=== PATIENT | male | born 1940 | race Caucasian/White ===

== ENCOUNTER → 2017-06-09 07:44 | Outpatient (CLI) | payer MEDICARE, OTHER, MEDICAID, SELFPAY ==
[2017-05-23 12:20] VITALS: BP 147/87; BMI 26.4
[2017-06-09 07:55] VITALS: BP 127/67; PULSE 61; RESP 18; TEMP 36.6; O2SAT 95; BMI 26.4
[2017-06-09] MEDS: Mepolizumab 100 MG VIAL SQ (08:33)
== END ==
PROVIDERS: Family Provider Family Medicine; PCP Family Medicine; Visit Provider Internal Medicine Critical Care Medicine
DX: J45.40 Moderate persistent asthma, uncomplicated (principal)
CPT/HCPCS: 96372; J2182

== ENCOUNTER → 2017-07-07 08:30 | Outpatient (CLI) | payer MEDICARE, OTHER, MEDICAID, SELFPAY ==
[2017-07-07 08:58] VITALS: BP 149/77; PULSE 56; RESP 20; TEMP 36.6; O2SAT 97; BMI 25.9
[2017-07-07] MEDS: Mepolizumab 100 MG VIAL SQ (09:15)
== END ==
PROVIDERS: Family Provider Family Medicine; PCP Family Medicine; Visit Provider Internal Medicine Critical Care Medicine
DX: J45.40 Moderate persistent asthma, uncomplicated (principal)
CPT/HCPCS: 96372; J2182

== ENCOUNTER → 2017-08-04 08:26 | Outpatient (CLI) | payer MEDICARE, OTHER, MEDICAID, SELFPAY ==
[2017-08-04] MEDS: Mepolizumab 100 MG VIAL SQ (08:55)
[2017-08-04 08:59] VITALS: BP 133/70; PULSE 66; TEMP 36.7; O2SAT 96; BMI 25.9
[2017-08-04 09:16] LABS: Absolute Lymphocyte Count 2.42 X10^3/ul (0.83-4.51); Absolute Neutrophil Count 3.5 X10^3/uL (2.0-7.7); Basophil# 0.02 X10^3/uL; Basophil% 0.3 % (0-1); Eosinophil# 0.06 X10^3/uL; Eosinophils% 0.9 % (0-5); Hematocrit 42.9 % (40-54); Lymphocyte # 2.42 X10^3/ul (4.0); Lymphocyte % 35.4 % (19-41); Mean Corp Hgb Conc 32.6 g/gl (32-36); Mean Corpuscular Hgb 29.5 pg (27.0-32.0); Mean Corpuscular Volume 90.3 fL (80-94); Mean Platelet Vol. 10.7 fl (6.2-12.0); Monocyte# 0.82 X10^3/uL; Neutrophil % 51.3 % (47-70); Platelet Count 207 K/mm3 (150-450); RBC Distribution Width CV 14.3 % (11.6-14.6); RBC Distribution Width SD 47.7 fl (35.1-43.9); Red Blood Count 4.75 M/mm3 (4.6-6.2); White Blood Count 6.8 K/mm3 (4.4-11.0)
[2017-08-04 09:19] LABS: POSITIVE COUNT NO; POSITIVE DIFFERENTIAL NO; POSITIVE MORPHOLOGY NO
== END ==
PROVIDERS: Family Provider Family Medicine; PCP Family Medicine; Visit Provider Internal Medicine Critical Care Medicine
DX: J45.40 Moderate persistent asthma, uncomplicated (principal); G47.33 Obstructive sleep apnea (adult) (pediatric); D72.1 Eosinophilia
CPT/HCPCS: 36415; 85025; 96372; J2182

== ENCOUNTER → 2017-09-01 09:22 | Outpatient (CLI) | payer MEDICARE, OTHER, MEDICAID, SELFPAY ==
[2017-09-01 09:36] VITALS: BP 126/65; PULSE 66; RESP 16; TEMP 36.7; BMI 25.9
[2017-09-01] MEDS: Mepolizumab 100 MG VIAL SQ (09:52)
== END ==
PROVIDERS: Family Provider Family Medicine; PCP Family Medicine; Visit Provider Internal Medicine Critical Care Medicine
DX: J45.40 Moderate persistent asthma, uncomplicated (principal)
CPT/HCPCS: 96372; J2182

== ENCOUNTER → 2017-09-29 08:22 | Outpatient (CLI) | payer MEDICARE, OTHER, MEDICAID, SELFPAY ==
[2017-09-29 08:27] VITALS: BP 129/64; PULSE 59; RESP 18; TEMP 36.4; O2SAT 96; BMI 26.6
[2017-09-29] MEDS: Mepolizumab 100 MG VIAL SQ (09:14)
== END ==
PROVIDERS: Family Provider Family Medicine; PCP Family Medicine; Visit Provider Internal Medicine Critical Care Medicine
DX: J45.40 Moderate persistent asthma, uncomplicated (principal)
CPT/HCPCS: 96372; J2182

== ENCOUNTER → 2017-10-27 08:42 | Outpatient (CLI) | payer MEDICARE, OTHER, MEDICAID, SELFPAY ==
[2017-10-27 08:56] VITALS: BP 115/66; PULSE 61; RESP 18; TEMP 36.6; O2SAT 96; BMI 25.9
[2017-10-27] MEDS: Mepolizumab 100 MG VIAL SQ (09:06)
== END ==
PROVIDERS: Family Provider Family Medicine; PCP Family Medicine; Visit Provider Internal Medicine Critical Care Medicine
DX: J45.40 Moderate persistent asthma, uncomplicated (principal)
CPT/HCPCS: 96372; J2182

== ENCOUNTER → 2017-10-27 22:39 | Outpatient (CLI) | payer MEDICARE, OTHER, MEDICAID, SELFPAY | PROVIDERS: Family Provider Family Medicine; PCP Family Medicine; Visit Provider Nurse Practitioner Acute Care | DX: G47.33 Obstructive sleep apnea (adult) (pediatric) (principal); J45.40 Moderate persistent asthma, uncomplicated | CPT/HCPCS: 95811; 96372 ==

== ENCOUNTER → 2017-11-24 09:03 | Outpatient (CLI) | payer MEDICARE, OTHER, MEDICAID, SELFPAY ==
[2017-11-24 09:17] VITALS: BP 116/61; PULSE 68; RESP 16; TEMP 36.7; O2SAT 95; BMI 25.9
[2017-11-24] MEDS: Mepolizumab 100 MG VIAL SQ (09:28)
== END ==
PROVIDERS: Family Provider Family Medicine; PCP Family Medicine; Visit Provider Internal Medicine Critical Care Medicine
DX: J45.50 Severe persistent asthma, uncomplicated (principal)
CPT/HCPCS: 96372; J2182

== ENCOUNTER → 2017-12-22 08:41 | Outpatient (CLI) | payer MEDICARE, OTHER, MEDICAID, SELFPAY ==
[2017-12-22 08:48] VITALS: BP 117/57; PULSE 70; RESP 18; TEMP 36.8; O2SAT 95; BMI 25.7
[2017-12-22] MEDS: Mepolizumab 100 MG VIAL SQ (09:00)
== END ==
PROVIDERS: Family Provider Family Medicine; PCP Family Medicine; Visit Provider Internal Medicine Critical Care Medicine
DX: J45.50 Severe persistent asthma, uncomplicated (principal)
CPT/HCPCS: 96372; J2182

== ENCOUNTER → 2018-01-05 10:19 | Outpatient (CLI) | payer MEDICARE, OTHER, MEDICAID, SELFPAY ==
[2018-01-05 11:20] LABS: Hematocrit 42.7 % (40-54); Hemoglobin 14.1 g/dl (13.0-16.5); Mean Corpuscular Hgb 29.8 pg (27.0-32.0); Mean Corpuscular Volume 90.3 fL (80-94); Mean Platelet Vol. 11.1 fl (6.2-12.0); Platelet Count 212 K/mm3 (150-450); RBC Distribution Width CV 14.9 % (11.6-14.6); RBC Distribution Width SD 48.7 fl (35.1-43.9); Red Blood Count 4.73 M/mm3 (4.6-6.2); White Blood Count 7.1 K/mm3 (4.4-11.0)
[2018-01-05 11:21] LABS: Scan Indicated on CBC? Y/N NO
[2018-01-05 11:43] LABS: Hemoglobin A1c 5.5 % (4.2-6.3)
[2018-01-05 11:54] LABS: ALB/GLOB Ratio 1.1 RATIO (0.9-2.4); AST(SGOT) 17 U/L (15-37); Alanine Aminotransfer ALT/SGPT 21 U/L (16-61); Albumin, Serum 3.8 g/dL (3.2-5.0); Alkaline Phosphatase 60 U/L (45-117); Anion Gap 7 (5-15); BUN 25 mg/dL (7-18); BUN/Creat Ratio 21.9 RATIO (10-20); Calcium,Total 9.2 mg/dL (8.5-10.1); Chloride 110 mmol/L (98-107); Creatinine, Serum 1.14 mg/dL (0.70-1.30); EST Glomerular Filtration Rate 66 mL/min (>60); Est Glom Filt Rate - Afr Amer 80 mL/min (>60); Globulin 3.5 g/dL (2.2-4.2); Glucose 79 mg/dL (74-106); Protein, Total 7.3 g/dL (6.4-8.2); Sodium Level 149 mmol/L (136-145)
== END ==
PROVIDERS: Family Provider Family Medicine; PCP Family Medicine; Visit Provider Nurse Practitioner Acute Care
DX: Z86.73 Personal history of transient ischemic attack (TIA), and cerebral infarction without residual deficits (principal); Z79.899 Other long term (current) drug therapy
CPT/HCPCS: 36415; 80053; 83036; 85027

== ENCOUNTER → 2018-01-19 08:41 | Outpatient (CLI) | payer MEDICARE, OTHER, MEDICAID, SELFPAY ==
[2018-01-19 08:51] VITALS: BP 127/62; PULSE 72; RESP 18; TEMP 36.5; O2SAT 94; BMI 26.4
[2018-01-19] MEDS: Mepolizumab 100 MG VIAL SQ (09:10)
== END ==
PROVIDERS: Family Provider Family Medicine; PCP Family Medicine; Visit Provider Internal Medicine Critical Care Medicine
DX: J45.50 Severe persistent asthma, uncomplicated (principal)
CPT/HCPCS: 96372; J2182

== ENCOUNTER → 2018-06-15 07:49 | Outpatient (CLI) | payer MEDICARE, OTHER, MEDICAID, SELFPAY ==
[2018-05-11 08:58] VITALS: BMI 26.3
--- NOTE | 2018-06-16 07:34 | PFTCOMP_ITS ---
COMPLETE PULMONARY FUNCTION TEST INTERPRETATION Brief HPI: Patient is a 77 year old male, currently under the care of myself, who presents to [facility] for complete pulmonary function tests secondary to diagnosis of COPD/asthma overlap. Respiratory therapist reports good effort and reproducible results. Interpretation: Forced expiration spirometry shows a severe large airways obstructive ventilatory defect with an FEV1 of 48% predicted. There is a significant bronchodilator response in FVC and FEV1 by strict ATS criteria. Spirograms are of good quality and plateau slowly, indicating slowly emptying areas of the lungs. The respiratory flow volume loop shows decreased expiratory flow rates at all lung volumes consistent with airway obstruction. Lung volumes by body plethysmography show a normal total lung capacity at 6.82 L, 103% predicted. All other lung volumes are within normal limits. Diffusion capacity by carbon monoxide is normal at 90% predicted. The airway resistance is elevated. Compared to previous pulmonary function tests from 06/24/16, there has been a significant improvement in in FEV1 by 27%. Impression: Partially reversible severe large airways obstructive ventilatory defect with significant improvement compared to previous study.
== END ==
PROVIDERS: Family Provider Family Medicine; PCP Family Medicine; Referring Provider Internal Medicine Critical Care Medicine; Visit Provider Internal Medicine Critical Care Medicine
DX: J44.9 Chronic obstructive pulmonary disease, unspecified (principal); J45.50 Severe persistent asthma, uncomplicated
CPT/HCPCS: 94060; 94726; 94729

== ENCOUNTER 2018-06-22 10:35 | Emergency (ER) | payer MEDICARE, OTHER, MEDICAID, SELFPAY ==
[2018-06-22 09:51] VITALS: BMI 27.2
[2018-06-22 10:39] VITALS: BP 104/71; PULSE 73; RESP 16; TEMP 36.1; O2SAT 97; BMI 25.9
--- NOTE | 2018-06-22 11:15 | CT_ITS ---
STUDY: CT CHEST WITH CONTRAST REASON FOR EXAM: Male, 77 years old. Chest pain after a fall RADIATION DOSAGE (If Supplied By Facility): CTDIvol = ( 21.89 ) mGy, DLP = ( 2275.60 ) mGycm TECHNIQUE: Transaxial imaging was performed following intravenous administration of Isovue 300 100 IV. Individualized dose optimization techniques were used for this CT. COMPARISON: Previous plain films FINDINGS: Soft tissue windows show normal-appearing thyroid gland. No suspicious axillary or mediastinal adenopathy. No pleural or pericardial effusions. Lung windows show chronic interstitial changes in both lung cali there is no organized infiltrate, or suspicious noncalcified mass or nodule. Limited cuts through the upper abdomen show a small retrocardiac hiatal hernia. Bony structures show degenerative change. No suspicious subcutaneous induration to suspect hematoma or chest contusion. CT/Chest WITH Contrast IMPRESSION: Chronic interstitial changes in both lung cali, no superimposed acute pulmonary process, or evidence of acute traumatic abnormality Degenerative bony changes Hiatal hernia Electronically Signed: Dangelo Mcconnell MD at 12:58 EST , Service support ,
--- NOTE | 2018-06-22 11:15 | CT_ITS ---
STUDY: CT ABDOMEN AND PELVIS WITH CONTRAST REASON FOR EXAM: Male, 77 years old. Fall, bruise on lower back. RADIATION DOSAGE (If Supplied By Facility): CTDIvol = ( 21.89 ) mGy, DLP = ( 2275.60 ) mGycm TECHNIQUE: Transaxial images were obtained from the dome of the diaphragm to the symphysis pubis without oral contrast. Isovue 300 100 IV was administered. Sagittal and coronal images were reconstructed. Individualized dose optimization techniques were used for this CT. COMPARISON: None. FINDINGS: The visualized lung bases are unremarkable. The visualized portions of the heart are within normal limits. Normal liver. The patent portal vein diameter is 13.5 mm. Normal gallbladder and extrahepatic biliary system. The common bile duct diameter is 5.5 mm. There are a few small benign calcified granulomata of the spleen. Normal pancreas. There is a 1.35 x 1.3 x 1.35 cm circumscribed, smooth, low attenuation left adrenal mass, consistent with an adrenal adenoma. Normal right adrenal gland. Normal right kidney. Normal left kidney. No hydronephrosis. Normal visualized stomach. Normal small intestine. There are multiple colonic diverticula consistent with diverticulosis. The appendix is visualized and appears normal. There are numerous lymph nodes ranging from nonspecific size to mildly enlarged in the central mesentery. There is moderate atherosclerotic calcification of the abdominal aorta, without a demonstrated aneurysm. Normal inferior vena cava. Normal retroperitoneum. Normal urinary bladder. There are prostatic calcifications. The prostate gland is 4.75 x 4.15 x 3.85 (R 40 cc) and mildly elevates the floor of the urinary bladder. There is mild asymmetric increased fatty density along the right neural canal/foramina cord that may reflect an inguinal hernia. There is a mildly lobulated 4.45 x 3.35 x 5.45 cm soft tissue density consistent with hematoma in the midline subcutaneous tissues of the back at the level of L3. There are degenerative changes in 11 degree levoscoliosis of the visualized lumbar spine. There is mild depression of the superior T12 and L1 vertebral endplates. There is calcification in the T12-L1 disc space and near bridging anterior endplate osteophytes at this level, suggesting these are chronic. CT/Abdomen/Pelvis WITH Contrast IMPRESSION: 1. 5 cm hematoma in the midline subcutaneous tissues of the back at the level of L3. 2. Mild depression of the superior T12 and L1 vertebral endplates, likely chronic. 3. No sign of intra-abdominal/pelvic injury. 4. Mildly enlarged prostate gland with coarse calcifications. 5. Moderate aortic atherosclerotic calcific plaquing. No demonstrated aneurysm. 6. Colonic diverticulosis without acute diverticulitis. No sign of bowel obstruction. The appendix is normal. 7. There are numerous mesenteric lymph nodes ranging from nonspecific size to mildly enlarged 8. 1.35 cm left adrenal lesion, likely a benign adenoma. Electronically Signed: Dangelo Vang MD at 13:16 EST , Service support ,
--- NOTE | 2018-06-22 11:21 | ED.DCSUM_ITS ---
- ER Visit Summary Date of Service: 06/22/18 Chief Complaint: Back injury History of Present Illness: The patient is a 77 M who presents for evaluation of a back injury. Patient tripped over the cord of a space heater last night and fell, landing with his back against the space heater in his body draped over it. It was sometime before he was able to get up. He denies hitting his head or any loss of consciousness. He denies any pain, trouble walking, bowel or bladder incontinence or retention, or any other complaints. His son took him to his gas mask assembler appointment today and he had noted diffusely diminished lung sounds. The nurse then looked at his back and recommended he come to the emergency department for further evaluation. Patient is not complaining of any pain but does have a very large bruise on the back. He is not on blood thinners other than a baby aspirin. Prior history of stroke. History of COPD and asthma. Physical Examination: Vital signs: afebrile, hemodynamically stable, no hypoxia on room air General: well nourished, well developed, in no distress Skin: warm, dry, no rash, no pallor HEENT: normocephalic and atraumatic; right pupil is cloudy and dull, moist mucous membranes Cardiovascular: regular rate and rhythm without murmurs, no peripheral edema, 2+ pulses all distal extremities Respiratory: Lung sounds are diffusely significantly diminished with mild wheezing. Abdominal: Abdomen is soft, distended, nontender with normoactive bowel sounds, no guarding or rebound, no masses Back: Large midline hematoma with surrounding area of ecchymosis in the lower thoracic, upper lumbar region no midline tenderness or deformities above or bel ow the area. MSK: Moves all extremities, no deformities, normal strength Neuro: Awake and alert, oriented ?4. No facial droop, sensation and motor function intact and symmetric Test Results: Abnormal Lab Results 06/22/18 06/22/18 11:35 11:35 WBC 7.3 RBC 4.33 L Hgb 13.0 Hct 40.0 MCV 92.4 MCH 30.0 MCHC 32.5 RDW 14.8 H RDW Differential 48.6 H Plt Count 216 MPV 10.6 Immature Gran % (Auto) 0.100 Neut % (Auto) 56.9 Lymph % (Auto) 28.2 [place] % (Auto) 13.8 H Eos % (Auto) 0.7 Baso % (Auto) 0.3 Absolute Neuts (auto) 4.1 Absolute Lymphs (auto) 2.05 Total Counted Not Reportable Sodium 144 Potassium 3.8 Chloride 109 H Carbon Dioxide 29.0 Anion Gap 6 BUN 31 H Creatinine 1.07 Estim Creat Clear Calc 60.60 Est GFR (MDRD) Af Amer 86 Est GFR (MDRD) Non-Af 71 BUN/Creatinine Ratio 29.0 H Glucose 104 Calcium 9.0 Clinical Impression(s) from Imaging Studies Abdomen/Pelvis CT 06/22/18 11:15 IMPRESSION: 1. 5 cm hematoma in the midline subcutaneous tissues of the back at the level of L3. 2. Mild depression of the superior T12 and L1 vertebral endplates, likely chronic. 3. No sign of intra-abdominal/pelvic injury. 4. Mildly enlarged prostate gland with coarse calcifications. 5. Moderate aortic atherosclerotic calcific plaquing. No demonstrated aneurysm. 6. Colonic diverticulosis without acute diverticulitis. No sign of bowel obstruction. The appendix is normal. 7. There are numerous mesenteric lymph nodes ranging from nonspecific size to mildly enlarged 8. 1.35 cm left adrenal lesion, likely a benign adenoma. Electronically Signed: Dangelo Vang MD at 13:16 EST , Service support , Chest CT 06/22/18 11:15 IMPRESSION: Chronic interstitial changes in both lung cali, no superimposed acute pulmonary process, or evidence of acute traumatic abnormality Degenerative bony changes Hiatal hernia Electronically Signed: Dangelo Mcconnell MD at 12:58 EST , Service support , Medications Given Discontinued Medications Albuterol Sulfate (Ventolin Aerosols) 2.5 mg INHALATION Q5M [facility] Stop: 06/22/18 11:36 Last Admin: 06/22/18 11:40 Dose: 2.5 mg Admin: 06/22/18 11:40 Dose: 2.5 mg Albuterol/Ipratropium (Duoneb) 3 ml INHALATION X1 ONE Stop: 06/22/18 11:19 Last Admin: 06/22/18 11:39 Dose: 3 ml Sodium Chloride () 1,000 mls @ 999 mls/hr IV .Q1H1M ONE Stop: 06/22/18 12:15 Last Admin: 06/22/18 11:39 Dose: 999 mls/hr Emergency Department Course and Treatment: Patient was given breathing treatments for his severe COPD while he was waiting the workup. Patient states he felt better after the breathing treatments. CT of the abdomen, pelvis and chest were performed to look for any intra-abdominal, intrathoracic or bony trauma based on the mechanism of injury with the concerning large hematoma on exam. Patient had no pneumothorax, hemothorax or any obvious intra-thoracic trauma. He had an old T11/L1 compression fracture noted in the subcutaneous hematoma but no other intra-abdominal or vertebral abnormalities noted. Patient will use [id number] pain medication as needed and will ice the hematoma. He is to follow-up with his gas mask assembler to continue the therapy that they were recommending at his visit today. Patient will return if any worsening of his condition. Discharged home. Treatment Plan: [] Disposition: [] Impression: Subcutaneous traumatic hematoma of the lumbar back; COPD This note was generated with [employer] dictation software. It may contain incorrect words, spelling, and punctuation that were not noted in review of the chart prior to signing ED Disposition - Plan for ED Patient: Disposition: Home or Assisted Living Instructions: ED Hematoma Referrals: Kunal Figueroa MD [Primary Care Provider] - 3-5 Days if not improving Additional Instructions: Please continue treatment for your COPD as advised by Dr. Harris. You may use the prednisone as they prescribed today. Use [id number] pain medication as needed for any back pain. Please ice the bruise on the back 3-4 times a day for 15 minutes to help with swelling. If you have any worsening of your condition or any new concerning symptoms, please return immediately to the emergency department for another evaluation.
[2018-06-22] MEDS: Ipratropium/Albuterol Sulfate 3 ML AMPUL.NEB INHALATION (11:39)
[2018-06-22] MEDS: 0.9% Normal Saline 1,000 ML 999 ML IV (11:39)
[2018-06-22] MEDS: Albuterol 2.5 MG/3 ML VIAL.NEB. INHALATION ×2 (11:40)
[2018-06-22 11:47] LABS: Absolute Lymphocyte Count 2.05 X10^3/ul (0.83-4.51); Absolute Neutrophil Count 4.1 X10^3/uL (2.0-7.7); Basophil# 0.02 X10^3/uL; Basophil% 0.3 % (0-1); Eosinophil# 0.05 X10^3/uL; Eosinophils% 0.7 % (0-5); Lymphocyte # 2.05 X10^3/ul (4.0); Lymphocyte % 28.2 % (19-41); Mean Corp Hgb Conc 32.5 g/gl (32-36); Mean Corpuscular Volume 92.4 fL (80-94); Mean Platelet Vol. 10.6 fl (6.2-12.0); Monocyte% 13.8 % (0-10); Neutrophil # 4.14 X10^3/uL (2.7-7.7); Neutrophil % 56.9 % (47-70); POSITIVE COUNT NO; POSITIVE DIFFERENTIAL NO; POSITIVE MORPHOLOGY NO; Platelet Count 216 K/mm3 (150-450); RBC Distribution Width CV 14.8 % (11.6-14.6); RBC Distribution Width SD 48.6 fl (35.1-43.9); Red Blood Count 4.33 M/mm3 (4.6-6.2); White Blood Count 7.3 K/mm3 (4.4-11.0)
[2018-06-22 11:50] VITALS: PULSE 67; RESP 23
[2018-06-22 12:01] LABS: Anion Gap 6 (5-15); BUN 31 mg/dL (7-18); Chloride 109 mmol/L (98-107); Creatinine, Serum 1.07 mg/dL (0.70-1.30); EST Glomerular Filtration Rate 71 mL/min (>60); Est Glom Filt Rate - Afr Amer 86 mL/min (>60); Glucose 104 mg/dL (74-106); Potassium 3.8 mmol/L (3.5-5.1); Sodium Level 144 mmol/L (136-145)
[2018-06-22 13:27] VITALS: BP 148/87; PULSE 74; RESP 18; O2SAT 99
[2018-06-22 14:22] VITALS: BP 138/82; PULSE 71; RESP 24
== END 2018-06-22 14:24 | disposition home or self-care (01) ==
PROVIDERS: Emergency Provider Emergency Medicine; Family Provider Family Medicine; PCP Family Medicine
DX: S30.0XXA Contusion of lower back and pelvis, initial encounter (principal); S20.229A Contusion of unspecified back wall of thorax, initial encounter; W18.09XA Striking against other object with subsequent fall, initial encounter; Y93.9 Activity, unspecified; Y92.9 Unspecified place or not applicable; Y99.9 Unspecified external cause status; J44.9 Chronic obstructive pulmonary disease, unspecified; Z79.82 Long term (current) use of aspirin; Z79.899 Other long term (current) drug therapy; Z86.73 Personal history of transient ischemic attack (TIA), and cerebral infarction without residual deficits
CPT/HCPCS: 71260; 74177; 80048; 85025; 94640; 96360; 96361; 99283; J7030; Q9967; A4216

== ENCOUNTER 2018-07-28 18:58 | Inpatient (IN) | payer MEDICARE, OTHER, MEDICAID, SELFPAY ==
[2018-07-13 09:34] VITALS: BMI 27.3
[2018-07-28] VITALS (9 sets, daily range): BP systolic 116–145; BP diastolic 63–79; PULSE 84–116; RESP 20–36; TEMP 36.4–36.8; O2SAT 92–100; BMI 29.9; BMI 26.1
--- NOTE | 2018-07-28 19:05 | RAD_ITS ---
STUDY: X-RAY CHEST REASON FOR EXAM: Male, 77 years old. Shortness of breath. History of COPD. TECHNIQUE: Single frontal view of the chest. COMPARISON: October 05, 2016 FINDINGS: There is stable hyperexpansion compatible with COPD. There is no demonstrated pleural abnormality. There is cardiomegaly unchanged. Normal mediastinum and antony. Normal visualized pulmonary arteries. There is atherosclerotic calcification of the aortic arch with tortuosity. Normal visualized thoracic spine. Normal visualized ribs, clavicles, and shoulders. There is no demonstrated abnormality of the visualized soft tissue structures of the upper abdomen. RAD/Chest 1 View (Portable) IMPRESSION: Stable cardiomegaly with hyperexpansion compatible with COPD. No new or acute findings. Electronically Signed: Chandler Edwards MD at 19:37 EDT , Service support ,
--- NOTE | 2018-07-28 19:05 | EKG12_ITS ---
Test Reason : SOB Blood Pressure : / mmHG Vent. Rate : 112 BPM Atrial Rate : 087 BPM P-R Int : 000 ms QRS Dur : 106 ms QT Int : 478 ms P-R-T Axes : 000 069 050 degrees QTc Int : 652 ms Sinus Tachycardia Abnormal ECG Reconfirmed by RAVI GOMEZ, ANITA ([id number]), food expeditor TATYANA JAY ([id number]) on 08/02/2018 3:37:53 PM Referred By: Ramon Mccracken Confirmed By:ANITA RODRIGUES MD
--- NOTE | 2018-07-28 19:15 | ED.DCSUM_ITS ---
- ER Visit Summary Date of Service: 07/28/18 Chief Complaint: Short of breath History of Present Illness: The patient is a 77 M with history of severe COPD and asthma. He was exposed to his grandson who tested positive for influenza. He has mild body aches and fever. Shortness of breath started yesterday but became much worse today. EMS noted O2 sat of 85% on room air on their arrival. He was even IV Solu-Medrol 125 mg and DuoNeb treatment x2. Patient is not normally on home oxygen. Physical Examination: Blood pressure is 145/79, temperature 98, heart rate 112, respiratory rate 36, pulse ox 100% on 6 L nasal cannula. Patient is sitting upright in bed. He is able to answer questions and speak in short sentences. Head neck examination reveals mild mucousy drainage from the right eye. Heart is tachycardic and regular. Lungs sounds are with inspiratory and expiratory wheezes. He is tachypneic. Abdomen is soft with no focal tenderness. Test Results: EKG is sinus tach at 112 with no sign of acute ischemia. Portable chest x-ray shows stable cardiomegaly with hyperexpansion consistent with COPD. No acute findings noted. CBC is unremarkable. Chemistry studies significant for potassium 3.3 and glucose of 165. Rapid flu test is positive for influenza A. Blood cultures were sent. Emergency Department Course and Treatment: Patient had received Solu-Medrol with EMS. In addition to the 2 previously given DuoNeb treatments he was given a total of 3 albuterol treatments here. He was given p.o. Tamiflu. Upon completion of lab work patient was given oral potassium chloride. At this time patient has been weaned off of supplemental oxygen. Vital signs include heart rate of 102, respiratory rate 25, pulse ox 94% on room air. Temperature at this time is 98.3. Patient does continue to have inspiratory and expiratory wheezes, but is much improved when compared to arrival. Treatment Plan: [] Disposition: Admit Impression: 1. Influenza A 2. COPD exacerbation This note was generated with [employer] dictation software. It may contain incorrect words, spelling, and punctuation that were not noted in review of the chart prior to signing ED Disposition - Plan for ED Patient: Referrals: Kunal Figueroa MD [Primary Care Provider] -
[2018-07-28] MEDS: 0.9% Normal Saline 1,000 ML 15 ML IV (19:18)
[2018-07-28] MEDS: Oseltamivir Phosphate 75 MG Capsule PO (19:20)
[2018-07-28] MEDS: Albuterol 2.5 MG/3 ML VIAL.NEB. INHALATION ×3 (19:22→19:52)
[2018-07-28 19:37] LABS: Anion Gap 7 (5-15); BUN 22 mg/dL (7-18); Calcium,Total 8.5 mg/dL (8.5-10.1); Chloride 105 mmol/L (98-107); Creatinine, Serum 1.16 mg/dL (0.70-1.30); EST Glomerular Filtration Rate 65 mL/min (>60); Est Glom Filt Rate - Afr Amer 78 mL/min (>60); Estimated Creatinine Clearance 50.78 ml/min; Glucose 165 mg/dL (74-106); Potassium 3.3 mmol/L (3.5-5.1); Sodium Level 140 mmol/L (136-145)
[2018-07-28 19:49] LABS: Absolute Lymphocyte Count 1.49 X10^3/ul (0.83-4.51); Absolute Neutrophil Count 7.6 X10^3/uL (2.0-7.7); Basophil# 0.01 X10^3/uL; Basophil% 0.1 % (0-1); Hematocrit 42.9 % (40-54); Hemoglobin 13.9 g/dl (13.0-16.5); Lymphocyte # 1.49 X10^3/ul (4.0); Lymphocyte % 13.6 % (19-41); Mean Corp Hgb Conc 32.4 g/gl (32-36); Mean Corpuscular Hgb 29.7 pg (27.0-32.0); Mean Corpuscular Volume 91.7 fL (80-94); Mean Platelet Vol. 10.7 fl (6.2-12.0); Monocyte# 1.77 X10^3/uL; Monocyte% 16.2 % (0-10); Neutrophil # 7.64 X10^3/uL (2.7-7.7); Neutrophil % 69.9 % (47-70); Platelet Count 202 K/mm3 (150-450); RBC Distribution Width SD 50.8 fl (35.1-43.9); Red Blood Count 4.68 M/mm3 (4.6-6.2); White Blood Count 10.9 K/mm3 (4.4-11.0)
[2018-07-28 19:51] LABS: Differential Indicated SCAN CRITERIA MET; POSITIVE COUNT NO; POSITIVE DIFFERENTIAL YES; POSITIVE MORPHOLOGY NO
[2018-07-28 20:00] LABS: Differential Comment SCANNED
--- NOTE | 2018-07-28 20:56 | PCM.HP.STD ---
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 Associated with her symptoms is a fever of about 100 at home; nonproductive cough; body aches; chills; loose stools; body aches and nonproductive cough. Patient grandson was sick with the flu. Also his had flulike symptoms. ENroute to the hospital the paramedics found that his O2 sats on room air was 85% on room air and he was wheezing. Paramedics gave him Solu-Medrol 125 mg IV and 2 treatment of DuoNeb. At the emergency department his initial respiratory rate was 36. Patient was wheezing and was given breathing treatments. He had tachycardia. He tested positive for Influenza A. Also he had low potassium of 3.3. Past Medical History Past Medical History (Chronic Problems): Chronic Problems (Last Reviewed 07/28/18 @ 22:14 by Ramon Mccracken MD) Severe persistent asthma (Chronic) Wheezing (Chronic) Dyspnea (Chronic) Cough (Chronic) Sleep apnea (Chronic) 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) Glaucoma (Chronic) Cataract (Chronic) surgery sched 06/07/16 Stroke (Chronic) 01/21 HTN (hypertension) (Chronic) Asthma (Chronic) Medical History: Medical History (Last Reviewed 07/28/18 @ 22:14 by Ramon Mccracken MD) shunt revision (Resolved) Wheezing (Chronic) R06.2 Dyspnea (Chronic) R06.00 Cough (Chronic) R05 Sleep apnea (Chronic) G47.30 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) J44.9 alpha 1 (Acute) Thrush, oral (Acute) B37.0 Glaucoma (Chronic) H40.9 Cataract (Chronic) H26.9 surgery sched 06/07/16 Stroke (Chronic) I63.9 01/21 HTN (hypertension) (Chronic) I10 Asthma (Chronic) J45.909 COPD with acute exacerbation (Acute) J44.1 Allergies tetracycline Allergy (Severe, Verified 07/28/18 19:03) Unknown levofloxacin [From Levaquin] Allergy (Verified 07/28/18 19:03) Pain in joints Home Medications: Ambulatory Orders Medication Instructions Recorded Albuterol Inhaler [Ventolin Hfa 1 - 2 puff INHALATION PRN PRN 07/28/18 (SP)] Amlodipine [Norvasc] 5 mg PO DAILY 07/28/18 Aspirin [Aspirin, Baby] 81 mg PO DAILY@0800 07/28/18 Atorvastatin Calcium [Lipitor] 5 mg PO QHS 07/28/18 Fluticasone 220 Mcg [Flovent (SP)] 2 puff INHALATION BID 07/28/18 Ipratropium/Albuterol Sulfate 3 ml INHALATION PRN PRN 07/28/18 [Duoneb] Lisinopril [Zestril] 10 mg PO BID 07/28/18 Mepolizumab [Nucala] 100 mg SQ QMONTH 07/28/18 [place]-3 Fatty Acids/Fish Oil [Fish 2,000 mg PO DAILY 07/28/18 Oil 1,000 mg Capsule] Travoprost [Travatan Z] 1 drop OP QHS 07/28/18 Surgical History: Surgical History (Last Reviewed 07/28/18 @ 22:14 by Ramon Mccracken MD) Status post lung surgery (Resolved) Z98.890 Cataract extraction status (Resolved) Z98.49 Hx of colonoscopy (Resolved) Z98.890 Surgical History: cataract - s/p R eye stent placement to decrease IOP, lens implantation, scheduled for L eye sx 06/07/16. Blind R eye Psychiatric History: No pertinent psych hx Lives: Spouse/ Significant Other Smoking Status: Former smoker Alcohol: None - *Family History Paternal Family History: Family History (Last Reviewed 07/28/18 @ 22:15 by Ramon Mccracken MD) Brother Cancer Mother Heart disease Father Absolute glaucoma Maternal Family History: Family History (Last Reviewed 07/28/18 @ 22:15 by Ramon Mccracken MD) Brother Cancer Mother Heart disease Father Absolute glaucoma Review of Systems Constitutional: Reports: Chills, Fever. Denies: Weight Change HEENT: Denies: Head Aches, Sinus Congestion, Sinus Drainage Cardiovascular: Denies: Chest Pain, Palpitations Respiratory: Reports: Cough, Shortness of breath at rest. Denies: Sputum production Gastrointestinal: Denies: Abdominal Pain, Nausea, Vomiting Genitourinary: Denies: Dysuria Musculoskeletal: Denies: Joint Pain, Joint Tenderness Skin: Denies: Rash, Wounds Neurological: Denies: Numbness, Tingling, Focal weakness Psychiatric: Denies: Anxiety, Depression, Homicidal Ideations, Suicidal Ideations Hematologic/ Lymphatic: Denies: Easy Bruising, Easy Bleeding VTE Information - Inpt Only VTE Present on Admission: No VTE Mechan Device Prophylaxis: None VTE Pharm Prophylaxis ordered?: Yes Patient Problems: Active and Suspected Problems (Last Reviewed 07/28/18 @ 22:14 by Ramon Mccracken MD) Influenza A (Acute) - Physical Exam General: Alert, Oriented x3, Cooperative HEENT: Atraumatic, PERRLA, EOMI, Normocephalic Neck: Supple, No JVD, Negative Carotid Bruits Lungs: Tachypneic, Wheezes - With prolonged expiratory phase Cardiovascular: No murmurs, Tachycardic Abdomen: Bowel Sounds Present, Soft, Non Tender Extremities: No edema, Capillary Refill Less than 3 Seconds Skin: No rashes, No breakdown Musculoskeletal: No Tenderness to Palpation of Joints or Extremities Neurological: Cranial nerves II-XII grossly intact Psych/Mental Status: Normal Affect, Appropriate Vital Signs Temp Pulse Resp BP Pulse Ox 98.3 F 102 H 25 H 116/65 94 07/28/18 20:34 07/28/18 20:34 07/28/18 20:34 07/28/18 20:34 07/28/18 20:34 Oxygen Flow Rate (L/min) 2 Oxygen Delivery Method Room Air Weight: 89.3 kg Body Mass Index (BMI) 29.9 Microbiology Past 72 Hours 07/28/18 19:20 Influenza Types A,B Direct FA (IMANI) - Final Mucosa - Nose Influenzae A Laboratory Tests Past 24 Hrs 07/28/18 07/28/18 19:00 19:00 WBC 10.9 RBC 4.68 Hgb 13.9 Hct 42.9 MCV 91.7 MCH 29.7 MCHC 32.4 RDW 15.0 H RDW Differential 50.8 H Plt Count 202 MPV 10.7 Immature Gran % (Auto) 0.200 Neut % (Auto) 69.9 Lymph % (Auto) 13.6 L [place] % (Auto) 16.2 H Eos % (Auto) 0.0 Baso % (Auto) 0.1 Absolute Neuts (auto) 7.6 Absolute Lymphs (auto) 1.49 Total Counted Not Reportable Differential Comment SCANNED Sodium 140 Potassium 3.3 L Chloride 105 Carbon Dioxide 28.0 Anion Gap 7 BUN 22 H Creatinine 1.16 Estim Creat Clear Calc 50.78 Est GFR (MDRD) Af Amer 78 Est GFR (MDRD) Non-Af 65 BUN/Creatinine Ratio 19.0 Glucose 165 H Calcium 8.5 Assessment/Plan All Active Problems (Last Reviewed 07/28/18 @ 22:14 by Ramon Mccracken MD) Influenza A (Acute) shunt revision (Resolved) Status post lung surgery (Resolved) Cataract extraction status (Resolved) Hx of colonoscopy (Resolved) alpha 1 (Acute) Thrush, oral (Acute) COPD with acute exacerbation (Acute) The patient is a 77 year old M with a significant history of asthma and severe COPD on [place]; 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 Influenza A infection. Chest x-ray was independently reviewed. It showed hyperinflation with no acute cardiopulmonary process. Received Tamiflu at the emergency department. Tamiflu continued. Supportive treatment with as needed Tylenol. Scheduled DuoNeb and as needed albuterol ordered Scheduled DuoNeb. COPD with acute exacerbation Likely due to influenza A. Received Solu-Medrol by the paramedics. Solu-Medrol continued Scheduled DuoNeb and as needed albuterol. Hypokalemia Admission potassium was 3.3. Likely secondary to multiple albuterol treatments. Received potassium supplementation 40 mg at emergency department. Repeat BMP in a.m. Hypertension On presentation his blood pressure was within goal Amlodipine and lisinopril continued Trend blood pressures and adjust blood pressure medications. History of stroke Patient with residual dysarthria and drooping from the mouth. Aspirin continued DVT prophylaxis: Subcutaneous Lovenox. Code Visit Inpatient E&M: 10395 Init Hosp L3
[2018-07-28] MEDS: Ipratropium/Albuterol Sulfate 3 ML AMPUL.NEB INHALATION (23:09)
--- NOTE | 2018-07-28 23:36 | NURSING ---
Calvin in Pharmacy called wanting to know when the solumedrol was given to this pt. The handoff report from ER indicates that the pt received 125 mg but there was not any documentation. When I talked to Yareli in ER, she indicated the solumedrol was given by EMS staff. The secretary office clerk in the ER did not have a copy of the EMS report yet. When I called Calvin back to advise him of this, he felt comfortable timing the solumedrol for the am.
[2018-07-28] MEDS: guaiFENesin 600 MG Tablet PO (23:54)
[2018-07-28] MEDS: Latanoprost 0.005% 1 Bottle 1 DRP LEFT EYE (23:55)
[2018-07-29] VITALS (16 sets, daily range): BP systolic 102–138; BP diastolic 55–76; PULSE 73–109; RESP 16–28; TEMP 36.3–37; O2SAT 92–98
[2018-07-29] MEDS: Acetaminophen 325 MG Tablet 650 MG PO (00:19)
[2018-07-29] MEDS: Ipratropium/Albuterol Sulfate 3 ML AMPUL.NEB INHALATION ×6 (03:04→23:13)
[2018-07-29] MEDS: 0.9% NaCl Peripheral Flush Adult/Peds IV ×2 (05:13→08:55)
[2018-07-29 06:36] LABS: Anion Gap 11 (5-15); BUN 35 mg/dL (7-18); Calcium,Total 8.9 mg/dL (8.5-10.1); Chloride 106 mmol/L (98-107); Creatinine, Serum 1.59 mg/dL (0.70-1.30); EST Glomerular Filtration Rate 45 mL/min (>60); Est Glom Filt Rate - Afr Amer 54 mL/min (>60); Estimated Creatinine Clearance 40.12 ml/min; Glucose 154 mg/dL (74-106); Potassium 3.6 mmol/L (3.5-5.1); Sodium Level 142 mmol/L (136-145)
[2018-07-29] MEDS: 0.9% Normal Saline 1,000 ML 100 ML IV (08:55)
[2018-07-29] MEDS: Aspirin 81 MG TAB.CHEW PO (09:00)
[2018-07-29] MEDS: amLODIPine 5 MG Tablet PO (09:01)
[2018-07-29] MEDS: Omega-3 Acid Ethyl Esters 1 GM Capsule 2 GM PO (09:01)
[2018-07-29] MEDS: guaiFENesin 600 MG Tablet PO ×2 (09:01→21:38)
[2018-07-29] MEDS: Enoxaparin 40 MG/0.4 ML Syringe SC (09:01)
[2018-07-29] MEDS: Oseltamivir Phosphate 30 MG Capsule PO ×2 (09:01→21:39)
[2018-07-29] MEDS: Lisinopril 10 MG Tablet PO ×2 (09:02→21:38)
--- NOTE | 2018-07-29 11:52 | PCM.PN.HOSP ---
Patient Problems: Active and Suspected Problems (Last Reviewed 07/28/18 @ 22:14 by Ramon Mccracken MD) Influenza A (Acute) Subjective: Patient has history of COPD, not on home oxygen. He also has a history of a stroke and chronic mild oropharyngeal dysphagia. As per the son, he can eat regular Consistency food to but needs more time to chew and swallow. Feels improvement in regards to shortness of breath and wheezing. Vitals/I&O's: Vital Signs Temp Pulse Resp BP Pulse Ox 98.6 F 88 18 128/62 H 98 07/29/18 08:49 07/29/18 10:15 07/29/18 08:49 07/29/18 08:49 07/29/18 08:49 Oxygen Flow Rate (L/min) 2 Oxygen Delivery Method Room Air Weight: 187 lb 1.6 oz Body Mass Index (BMI) 26.1 Intake and Output for Last 24 Hours 07/27/18 07/28/18 07/29/18 23:59 23:59 23:59 Intake Total 720 / 720 Balance 720 / 720 General: Alert, Oriented x3, Cooperative HEENT: Atraumatic, PERRLA, EOMI, Normocephalic Neck: Supple, No JVD, Negative Carotid Bruits Lungs: Diminished, Rhonchi, Short of Breath, Wheezes Cardiovascular: Regular rate, Regular Rhythm, Normal S1, Normal S2, No murmurs Abdomen: Bowel Sounds Present, Soft, Non Tender, Non-Distended Extremities: No edema, Capillary Refill Less than 3 Seconds Skin: No rashes, No breakdown Musculoskeletal: No Tenderness to Palpation of Joints or Extremities, Arthritic Changes, Muscle Wasting Neurological: Cranial nerves II-XII grossly intact, Deep Tendon Reflexes 2+/4 and Symmetrical, Neuro grossly intact Psych/Mental Status: Normal Affect, Appropriate Microbiology Past 72 Hours 07/28/18 19:20 Mucosa - Nose Influenza Types A,B Direct FA (IMANI) - Final Influenzae A Laboratory Results 07/28/18 19:00: WBC 10.9, RBC 4.68, Hgb 13.9, Hct 42.9, MCV 91.7, MCH 29.7, MCHC 32.4, RDW 15.0 H, RDW Differential 50.8 H, Plt Count 202, MPV 10.7, Immature Gran % (Auto) 0.200, Neut % (Auto) 69.9, Lymph % (Auto) 13.6 L, [place] % (Auto) 16.2 H, Eos % (Auto) 0.0, Baso % (Auto) 0.1, Absolute Neuts (auto) 7.6, Absolute Lymphs (auto) 1.49, Total Counted Not Reportable, Differential Comment SCANNED 07/28/18 19:00: Sodium 140, Potassium 3.3 L, Chloride 105, Carbon Dioxide 28.0, Anion Gap 7, BUN 22 H, Creatinine 1.16, Estim Creat Clear Calc 50.78, Est GFR (MDRD) Af Amer 78, Est GFR (MDRD) Non-Af 65, BUN/Creatinine Ratio 19.0, Glucose 165 H, Calcium 8.5 07/29/18 05:43: Sodium 142, Potassium 3.6, Chloride 106, Carbon Dioxide 25.0, Anion Gap 11, BUN 35 H, Creatinine 1.59 H, Estim Creat Clear Calc 40.12, Est GFR (MDRD) Af Amer 54 L, Est GFR (MDRD) Non-Af 45 L, BUN/Creatinine Ratio 22.0 H, Glucose 154 H, Calcium 8.9 Current Medications Acetaminophen (Tylenol) 650 mg PO Q6H PRN PRN PRN Reason: Mild Pain (scale 0-3)/T>100.7 Last Admin: 07/29/18 00:19 Dose: 650 mg Albuterol Sulfate (Ventolin Aerosols) 2.5 mg INHALATION Q2H PRN PRN PRN Reason: SHORTNESS OF BREATH Albuterol/Ipratropium (Duoneb) 3 ml INHALATION Q4H.RT [facility] Last Admin: 07/29/18 11:19 Dose: 3 ml Amlodipine Besylate (Norvasc) 5 mg PO DAILY [facility] Last Admin: 07/29/18 09:01 Dose: 5 mg Aspirin (Aspirin, Baby) 81 mg PO DAILY@0800 [facility] Last Admin: 07/29/18 09:00 Dose: 81 mg Atorvastatin Calcium (Lipitor) 5 mg PO QHS [facility] Last Admin: 07/29/18 00:04 Dose: Not Given Enoxaparin Sodium (Lovenox) 40 mg SC DAILY@1000 [facility] Last Admin: 07/29/18 09:01 Dose: 40 mg Guaifenesin (Mucinex) 600 mg PO BID [facility] Last Admin: 07/29/18 09:01 Dose: 600 mg Sodium Chloride () 1,000 mls @ 100 mls/hr IV .Q10H [facility] Stop: 07/29/18 17:34 Last Admin: 07/29/18 08:55 Dose: 100 mls/hr Latanoprost (Xalatan Opthalmic) 1 drop LEFT EYE QHS [facility] Last Admin: 07/28/18 23:55 Dose: 1 drop Lisinopril (Zestril) 10 mg PO BID [facility] Last Admin: 07/29/18 09:02 Dose: 10 mg Magnesium Hydroxide (Milk Of Magnesia) 30 ml PO DAILY PRN PRN PRN Reason: Constipation Methylprednisolone (Solu-Medrol) 40 mg IV Q8 [facility] Last Admin: 07/29/18 05:12 Dose: 40 mg Nutritional Formula (Lactose Free) (Ensure Enlive) 120 ml PO 4X/DAY [facility] Last Admin: 07/29/18 08:58 Dose: 120 ml Oqifo-2-Zayr Ethyl Esters (Lovaza) 2 gm PO DAILY [facility] Last Admin: 07/29/18 09:01 Dose: 2 gm Ondansetron HCl (Zofran) 4 mg IV Q8H PRN PRN PRN Reason: Nausea Oseltamivir Phosphate (Tamiflu) 30 mg PO BID [facility] Stop: 08/02/18 10:01 Last Admin: 07/29/18 09:01 Dose: 30 mg Sodium Chloride () 5 - 15 ml IV UD PRN PRN Reason: SALINE FLUSH Last Admin: 07/29/18 08:55 Dose: 10 ml Medical Necessity - Tobacco Use Smoking Status: Former smoker Tobacco Use: Cigarettes Assessment/Plan All Active Problems (Last Reviewed 07/28/18 @ 22:14 by Ramon Mccracken MD) Influenza A (Acute) shunt revision (Resolved) Status post lung surgery (Resolved) Cataract extraction status (Resolved) Hx of colonoscopy (Resolved) alpha 1 (Acute) Thrush, oral (Acute) COPD with acute exacerbation (Acute) The patient is a 77 year old M with a significant history of asthma and severe COPD on nebulization; 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 Patient was found positive for influenza A. 1. COPD exacerbation with acute bronchitis secondary to influenza A: [facility]. Chest x-ray does not show acute cardiopulmonary process but hyperinflation. On bronchodilator [id number]. IV Solu-Medrol. On Tamiflu. On Mucinex, chest physiotherapy and incentive spirometry. Patient follows Dr. Harris as an outpatient. Patient had last PFT in June 2018 and reported as partially reversible severe large airway obstructive disease with significant improvement in FEV1 by 27%. Last FEV1 48%. 2. Acute hypoxic respiratory failure secondary to COPD exacerbation: Resolved. Patient pulse was 100% on 6 L of oxygen in ER. Currently 96% on room air. Hypertension, history of stroke with residual dysarthria, dysphagia and facial drooping: On aspirin and statin. 3. Mild hypokalemia: Potassium replaced. 4. DVT prophylaxis: On Lovenox 40 mg subcu daily. Code Visit Inpatient E&M: 63824 [facility] Hosp L3
--- NOTE | 2018-07-29 12:01 | PN_ITS ---
Patient Problems: Active and Suspected Problems (Last Reviewed 07/28/18 @ 22:14 by Ramon Mccracken MD) Influenza A (Acute) Subjective: Patient has history of COPD, not on home oxygen. He also has a history of a stroke and chronic mild oropharyngeal dysphagia. As per the son, he can eat regular Consistency food to but needs more time to chew and swallow. Feels improvement in regards to shortness of breath and wheezing. Vitals/I&O's: Vital Signs Temp Pulse Resp BP Pulse Ox 98.6 F 88 18 128/62 H 98 07/29/18 08:49 07/29/18 10:15 07/29/18 08:49 07/29/18 08:49 07/29/18 08:49 Oxygen Flow Rate (L/min) 2 Oxygen Delivery Method Room Air Weight: 187 lb 1.6 oz Body Mass Index (BMI) 26.1 Intake and Output for Last 24 Hours 07/27/18 07/28/18 07/29/18 23:59 23:59 23:59 Intake Total 720 / 720 Balance 720 / 720 General: Alert, Oriented x3, Cooperative HEENT: Atraumatic, PERRLA, EOMI, Normocephalic Neck: Supple, No JVD, Negative Carotid Bruits Lungs: Diminished, Rhonchi, Short of Breath, Wheezes Cardiovascular: Regular rate, Regular Rhythm, Normal S1, Normal S2, No murmurs Abdomen: Bowel Sounds Present, Soft, Non Tender, Non-Distended Extremities: No edema, Capillary Refill Less than 3 Seconds Skin: No rashes, No breakdown Musculoskeletal: No Tenderness to Palpation of Joints or Extremities, Arthritic Changes, Muscle Wasting Neurological: Cranial nerves II-XII grossly intact, Deep Tendon Reflexes 2+/4 and Symmetrical, Neuro grossly intact Psych/Mental Status: Normal Affect, Appropriate Microbiology Past 72 Hours 07/28/18 19:20 Mucosa - Nose Influenza Types A,B Direct FA (IMANI) - Final Influenzae A Laboratory Results 07/28/18 19:00: WBC 10.9, RBC 4.68, Hgb 13.9, Hct 42.9, MCV 91.7, MCH 29.7, MCHC 32.4, RDW 15.0 H, RDW Differential 50.8 H, Plt Count 202, MPV 10.7, Immature Gran % (Auto) 0.200, Neut % (Auto) 69.9, Lymph % (Auto) 13.6 L, [place] % (Auto) 16.2 H, Eos % (Auto) 0.0, Baso % (Auto) 0.1, Absolute Neuts (auto) 7.6, Absolute Lymphs (auto) 1.49, Total Counted Not Reportable, Differential Comment SCANNED 07/28/18 19:00: Sodium 140, Potassium 3.3 L, Chloride 105, Carbon Dioxide 28.0, Anion Gap 7, BUN 22 H, Creatinine 1.16, Estim Creat Clear Calc 50.78, Est GFR (MDRD) Af Amer 78, Est GFR (MDRD) Non-Af 65, BUN/Creatinine Ratio 19.0, Glucose 165 H, Calcium 8.5 07/29/18 05:43: Sodium 142, Potassium 3.6, Chloride 106, Carbon Dioxide 25.0, Anion Gap 11, BUN 35 H, Creatinine 1.59 H, Estim Creat Clear Calc 40.12, Est GFR (MDRD) Af Amer 54 L, Est GFR (MDRD) Non-Af 45 L, BUN/Creatinine Ratio 22.0 H, G lucose 154 H, Calcium 8.9 Current Medications Acetaminophen (Tylenol) 650 mg PO Q6H PRN PRN PRN Reason: Mild Pain (scale 0-3)/T>100.7 Last Admin: 07/29/18 00:19 Dose: 650 mg Albuterol Sulfate (Ventolin Aerosols) 2.5 mg INHALATION Q2H PRN PRN PRN Reason: SHORTNESS OF BREATH Albuterol/Ipratropium (Duoneb) 3 ml INHALATION Q4H.RT [facility] Last Admin: 07/29/18 11:19 Dose: 3 ml Amlodipine Besylate (Norvasc) 5 mg PO DAILY [facility] Last Admin: 07/29/18 09:01 Dose: 5 mg Aspirin (Aspirin, Baby) 81 mg PO DAILY@0800 [facility] Last Admin: 07/29/18 09:00 Dose: 81 mg Atorvastatin Calcium (Lipitor) 5 mg PO QHS [facility] Last Admin: 07/29/18 00:04 Dose: Not Given Enoxaparin Sodium (Lovenox) 40 mg SC DAILY@1000 [facility] Last Admin: 07/29/18 09:01 Dose: 40 mg Guaifenesin (Mucinex) 600 mg PO BID [facility] Last Admin: 07/29/18 09:01 Dose: 600 mg Sodium Chloride () 1,000 mls @ 100 mls/hr IV .Q10H [facility] Stop: 07/29/18 17:34 Last Admin: 07/29/18 08:55 Dose: 100 mls/hr Latanoprost (Xalatan Opthalmic) 1 drop LEFT EYE QHS [facility] Last Admin: 07/28/18 23:55 Dose: 1 drop Lisinopril (Zestril) 10 mg PO BID [facility] Last Admin: 07/29/18 09:02 Dose: 10 mg Magnesium Hydroxide (Milk Of Magnesia) 30 ml PO DAILY PRN PRN PRN Reason: Constipation Methylprednisolone (Solu-Medrol) 40 mg IV Q8 [facility] Last Admin: 07/29/18 05:12 Dose: 40 mg Nutritional Formula (Lactose Free) (Ensure Enlive) 120 ml PO 4X/DAY [facility] Last Admin: 07/29/18 08:58 Dose: 120 ml [id number] Ethyl Esters (Lovaza) 2 gm PO DAILY [facility] Last Admin: 07/29/18 09:01 Dose: 2 gm Ondansetron HCl (Zofran) 4 mg IV Q8H PRN PRN PRN Reason: Nausea Oseltamivir Phosphate (Tamiflu) 30 mg PO BID [facility] Stop: 08/02/18 10:01 Last Admin: 07/29/18 09:01 Dose: 30 mg Sodium Chloride () 5 - 15 ml IV UD PRN PRN Reason: SALINE FLUSH Last Admin: 07/29/18 08:55 Dose: 10 ml Medical Necessity - Tobacco Use Smoking Status: Former smoker Tobacco Use: Cigarettes Assessment/Plan All Active Problems (Last Reviewed 07/28/18 @ 22:14 by Ramon Mccracken MD) Influenza A (Acute) shunt revision (Resolved) Status post lung surgery (Resolved) Cataract extraction status (Resolved) Hx of colonoscopy (Resolved) alpha 1 (Acute) Thrush, oral (Acute) COPD with acute exacerbation (Acute) The patient is a 77 year old M with a significant history of asthma and severe COPD on nebulization; 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 Patient was found positive for influenza A. 1. COPD exacerbation with acute bronchitis secondary to influenza A: Patient is being admitted to [facility] floor. Chest x-ray does not show acute cardiopulmonary process but hyperinflation. On bronchodilator [id number]. IV Solu-Medrol. On Tamiflu. On Mucinex, chest physiotherapy and incentive spirometry. Patient follows Dr. Harris as an outpatient. Patient had last PFT in June 2018 and reported as partially reversible severe large airway obstructive disease with significant improvement in FEV1 by 27%. Last FEV1 48%. 2. Acute hypoxic respiratory failure secondary to COPD exacerbation: Resolved. Patient pulse was 100% on 6 L of oxygen in ER. Currently 96% on room air. Hypertension, history of stroke with residual dysarthria, dysphagia and facial drooping: On aspirin and statin. 3. Mild hypokalemia: Potassium replaced. 4. DVT prophylaxis: On Lovenox 40 mg subcu daily. Code Visit Inpatient E&M: 80774 [facility] Hosp L3
[2018-07-29] MEDS: Atorvastatin Calcium 10 MG Tablet 5 MG PO (21:38)
[2018-07-29] MEDS: Latanoprost 0.005% 1 Bottle 1 DRP LEFT EYE (21:39)
[2018-07-30] VITALS (17 sets, daily range): BP systolic 124–144; BP diastolic 62–77; PULSE 67–92; RESP 16–28; TEMP 36.6–37.2; O2SAT 92–100
[2018-07-30] MEDS: Ipratropium/Albuterol Sulfate 3 ML AMPUL.NEB INHALATION ×6 (02:39→23:31)
[2018-07-30] MEDS: 0.9% NaCl Peripheral Flush Adult/Peds IV ×2 (06:06→14:02)
[2018-07-30] MEDS: Oseltamivir Phosphate 30 MG Capsule PO ×2 (09:18→21:17)
[2018-07-30] MEDS: Lisinopril 10 MG Tablet PO (09:18)
[2018-07-30] MEDS: amLODIPine 5 MG Tablet PO (09:18)
[2018-07-30] MEDS: guaiFENesin 600 MG Tablet PO ×2 (09:19→21:16)
[2018-07-30] MEDS: Aspirin 81 MG TAB.CHEW PO (09:19)
[2018-07-30] MEDS: Enoxaparin 40 MG/0.4 ML Syringe SC (09:19)
[2018-07-30] MEDS: Omega-3 Acid Ethyl Esters 1 GM Capsule 2 GM PO (09:19)
--- NOTE | 2018-07-30 10:07 | PCM.PN.HOSP ---
Patient Problems: Active and Suspected Problems (Last Reviewed 07/28/18 @ 22:14 by Ramon Mccracken MD) Influenza A (Acute) Subjective: Overall, patient feels better. No fever. Blood pressure is controlled, tachypnea controlled. Patient BUN/creatinine increased from 22/1.16-35/1.59 Vitals/I&O's: Vital Signs Temp Pulse Resp BP Pulse Ox 99.0 F 88 18 130/62 H 100 07/30/18 09:40 07/30/18 09:40 07/30/18 09:40 07/30/18 09:40 07/30/18 09:40 Oxygen Flow Rate (L/min) 2 Oxygen Delivery Method Room Air Weight: 187 lb 1.6 oz Body Mass Index (BMI) 26.1 Intake and Output for Last 24 Hours 07/28/18 07/29/18 07/30/18 23:59 23:59 23:59 Intake Total 2146 / 2146 1280 / 1280 Balance 2146 / 2146 1280 / 1280 General: Alert, Oriented x3, Cooperative HEENT: Atraumatic, PERRLA, EOMI, Normocephalic Neck: Supple, No JVD, Negative Carotid Bruits Lungs: Diminished, Rhonchi, Short of Breath, Wheezes Cardiovascular: Regular rate, Regular Rhythm, Normal S1, Normal S2, No murmurs Abdomen: Bowel Sounds Present, Soft, Non Tender, Non-Distended Extremities: No edema, Capillary Refill Less than 3 Seconds Skin: No rashes, No breakdown Musculoskeletal: No Tenderness to Palpation of Joints or Extremities, Arthritic Changes, Muscle Wasting Lymphatic: No Cervical, Supraclavicular, or Inguinal Adenopathy Neurological: Cranial nerves II-XII grossly intact, Deep Tendon Reflexes 2+/4 and Symmetrical, Neuro grossly intact, Motor Exam 5/5 strength throughout Psych/Mental Status: Normal Affect, Appropriate Microbiology Past 72 Hours 07/28/18 19:20 Mucosa - Nose Influenza Types A,B Direct FA (IMANI) - Final Influenzae A Current Medications Acetaminophen (Tylenol) 650 mg PO Q6H PRN PRN PRN Reason: Mild Pain (scale 0-3)/T>100.7 Last Admin: 07/29/18 00:19 Dose: 650 mg Albuterol Sulfate (Ventolin Aerosols) 2.5 mg INHALATION Q2H PRN PRN PRN Reason: SHORTNESS OF BREATH Albuterol/Ipratropium (Duoneb) 3 ml INHALATION Q4H.RT [facility] Last Admin: 07/30/18 06:50 Dose: 3 ml Amlodipine Besylate (Norvasc) 5 mg PO DAILY [facility] Last Admin: 07/30/18 09:18 Dose: 5 mg Aspirin (Aspirin, Baby) 81 mg PO DAILY@0800 [facility] Last Admin: 07/30/18 09:19 Dose: 81 mg Atorvastatin Calcium (Lipitor) 5 mg PO QHS [facility] Last Admin: 07/29/18 21:38 Dose: 5 mg Enoxaparin Sodium (Lovenox) 40 mg SC DAILY@1000 [facility] Last Admin: 07/30/18 09:19 Dose: 40 mg Guaifenesin (Mucinex) 600 mg PO BID [facility] Last Admin: 07/30/18 09:19 Dose: 600 mg Sodium Chloride () 1,000 mls @ 100 mls/hr IV .Q10H [facility] Latanoprost (Xalatan Opthalmic) 1 drop LEFT EYE QHS [facility] Last Admin: 07/29/18 21:39 Dose: 1 drop Magnesium Hydroxide (Milk Of Magnesia) 30 ml PO DAILY PRN PRN PRN Reason: Constipation Methylprednisolone (Solu-Medrol) 40 mg IV Q8 [facility] Last Admin: 07/30/18 06:05 Dose: 40 mg Nutritional Formula (Lactose Free) (Ensure Enlive) 120 ml PO 4X/DAY [facility] Last Admin: 07/30/18 09:25 Dose: 120 ml Brelf-4-Ojbz Ethyl Esters (Lovaza) 2 gm PO DAILY [facility] Last Admin: 07/30/18 09:19 Dose: 2 gm Ondansetron HCl (Zofran) 4 mg IV Q8H PRN PRN PRN Reason: Nausea Oseltamivir Phosphate (Tamiflu) 30 mg PO BID [facility] Stop: 08/02/18 10:01 Last Admin: 07/30/18 09:18 Dose: 30 mg Sodium Chloride () 5 - 15 ml IV UD PRN PRN Reason: SALINE FLUSH Last Admin: 07/30/18 06:06 Dose: 10 ml Medical Necessity - Tobacco Use Smoking Status: Former smoker Tobacco Use: Cigarettes Assessment/Plan All Active Problems (Last Reviewed 07/28/18 @ 22:14 by Ramon Mccracken MD) Influenza A (Acute) shunt revision (Resolved) Status post lung surgery (Resolved) Cataract extraction status (Resolved) Hx of colonoscopy (Resolved) alpha 1 (Acute) Thrush, oral (Acute) COPD with acute exacerbation (Acute) The patient is a 77 year old M with a significant history of asthma and severe COPD on nebulization; 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 Patient was found positive for influenza A. 1. COPD exacerbation with acute bronchitis secondary to influenza A: [facility] Chest x-ray does not show acute cardiopulmonary process but hyperinflation. On bronchodilator [id number]. IV Solu-Medrol. On Tamiflu. On Mucinex, chest physiotherapy and incentive spirometry. Patient follows Dr. Harris as an outpatient. Patient had last PFT in June 2018 and reported as partially reversible severe large airway obstructive disease with significant improvement in FEV1 by 27%. Last FEV1 48%. 2. Acute hypoxic respiratory failure secondary to COPD exacerbation: Resolved. Patient pulse was 100% on 6 L of oxygen in ER. Currently 96% on room air. Hypertension, history of stroke with residual dysarthria, dysphagia and facial drooping: On aspirin and statin. 3. Acute kidney injury, most probably from prerenal, and/or infection/influenza A: Started on IV fluid normal saline 100 mils per hour. UA is ordered. Patient BUN/creatinine increased from 22/1.16-35/1.59. Lisinopril is discontinued. Follow-up BMP tomorrow morning. UA is ordered 3. Mild hypokalemia: Potassium replaced. 4. DVT prophylaxis: On Lovenox 40 mg subcu daily. Code Visit Inpatient E&M: 62915 [facility] Hosp L3
--- NOTE | 2018-07-30 10:16 | PN_ITS ---
Patient Problems: Active and Suspected Problems (Last Reviewed 07/28/18 @ 22:14 by Ramon Mccracken MD) Influenza A (Acute) Subjective: Overall, patient feels better. No fever. Blood pressure is controlled, tachypnea controlled. Patient BUN/creatinine increased from 22/1.16-35/1.59 Vitals/I&O's: Vital Signs Temp Pulse Resp BP Pulse Ox 99.0 F 88 18 130/62 H 100 07/30/18 09:40 07/30/18 09:40 07/30/18 09:40 07/30/18 09:40 07/30/18 09:40 Oxygen Flow Rate (L/min) 2 Oxygen Delivery Method Room Air Weight: 187 lb 1.6 oz Body Mass Index (BMI) 26.1 Intake and Output for Last 24 Hours 07/28/18 07/29/18 07/30/18 23:59 23:59 23:59 Intake Total 2146 / 2146 1280 / 1280 Balance 2146 / 2146 1280 / 1280 General: Alert, Oriented x3, Cooperative HEENT: Atraumatic, PERRLA, EOMI, Normocephalic Neck: Supple, No JVD, Negative Carotid Bruits Lungs: Diminished, Rhonchi, Short of Breath, Wheezes Cardiovascular: Regular rate, Regular Rhythm, Normal S1, Normal S2, No murmurs Abdomen: Bowel Sounds Present, Soft, Non Tender, Non-Distended Extremities: No edema, Capillary Refill Less than 3 Seconds Skin: No rashes, No breakdown Musculoskeletal: No Tenderness to Palpation of Joints or Extremities, Arthritic Changes, Muscle Wasting Lymphatic: No Cervical, Supraclavicular, or Inguinal Adenopathy Neurological: Cranial nerves II-XII grossly intact, Deep Tendon Reflexes 2+/4 and Symmetrical, Neuro grossly intact, Motor Exam 5/5 strength throughout Psych/Mental Status: Normal Affect, Appropriate Microbiology Past 72 Hours 07/28/18 19:20 Mucosa - Nose Influenza Types A,B Direct FA (IMANI) - Final Influenzae A Current Medications Acetaminophen (Tylenol) 650 mg PO Q6H PRN PRN PRN Reason: Mild Pain (scale 0-3)/T>100.7 Last Admin: 07/29/18 00:19 Dose: 650 mg Albuterol Sulfate (Ventolin Aerosols) 2.5 mg INHALATION Q2H PRN PRN PRN Reason: SHORTNESS OF BREATH Albuterol/Ipratropium (Duoneb) 3 ml INHALATION Q4H.RT COUNTS INCLUDE 234 BEDS AT THE [facility] Last Admin: 07/30/18 06:50 Dose: 3 ml Amlodipine Besylate (Norvasc) 5 mg PO DAILY COUNTS INCLUDE 234 BEDS AT THE [facility] Last Admin: 07/30/18 09:18 Dose: 5 mg Aspirin (Aspirin, Baby) 81 mg PO DAILY@0800 COUNTS INCLUDE 234 BEDS AT THE [facility] Last Admin: 07/30/18 09:19 Dose: 81 mg Atorvastatin Calcium (Lipitor) 5 mg PO QHS COUNTS INCLUDE 234 BEDS AT THE [facility] Last Admin: 07/29/18 21:38 Dose: 5 mg Enoxaparin Sodium (Lovenox) 40 mg SC DAILY@1000 COUNTS INCLUDE 234 BEDS AT THE [facility] Last Admin: 07/30/18 09:19 Dose: 40 mg Guaifenesin (Mucinex) 600 mg PO BID COUNTS INCLUDE 234 BEDS AT THE [facility] Last Admin: 07/30/18 09:19 Dose: 600 mg Sodium Chloride () 1,000 mls @ 100 mls/hr IV .Q10H COUNTS INCLUDE 234 BEDS AT THE [facility] Latanoprost (Xalatan Opthalmic) 1 drop LEFT EYE QHS COUNTS INCLUDE 234 BEDS AT THE [facility] Last Admin: 07/29/18 21:39 Dose: 1 drop Magnesium Hydroxide (Milk Of Magnesia) 30 ml PO DAILY PRN PRN PRN Reason: Constipation Methylprednisolone (Solu-Medrol) 40 mg IV Q8 COUNTS INCLUDE 234 BEDS AT THE [facility] Last Admin: 07/30/18 06:05 Dose: 40 mg Nutritional Formula (Lactose Free) (Ensure Enlive) 120 ml PO 4X/DAY COUNTS INCLUDE 234 BEDS AT THE [facility] Last Admin: 07/30/18 09:25 Dose: 120 ml Ulqte-6-Cuee Ethyl Esters (Lovaza) 2 gm PO DAILY COUNTS INCLUDE 234 BEDS AT THE [facility] Last Admin: 07/30/18 09:19 Dose: 2 gm Ondansetron HCl (Zofran) 4 mg IV Q8H PRN PRN PRN Reason: Nausea Oseltamivir Phosphate (Tamiflu) 30 mg PO BID COUNTS INCLUDE 234 BEDS AT THE [facility] Stop: 08/02/18 10:01 Last Admin: 07/30/18 09:18 Dose: 30 mg Sodium Chloride () 5 - 15 ml IV UD PRN PRN Reason: SALINE FLUSH Last Admin: 07/30/18 06:06 Dose: 10 ml Medical Necessity - Tobacco Use Smoking Status: Former smoker Tobacco Use: Cigarettes Assessment/Plan All Active Problems (Last Reviewed 07/28/18 @ 22:14 by Ramon Mccracken MD) Influenza A (Acute) shunt revision (Resolved) Status post lung surgery (Resolved) Cataract extraction status (Resolved) Hx of colonoscopy (Resolved) alpha 1 (Acute) Thrush, oral (Acute) COPD with acute exacerbation (Acute) The patient is a 77 year old M with a significant history of asthma and severe COPD on nebulization; 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 Patient was found positive for influenza A. 1. COPD exacerbation with acute bronchitis secondary to influenza A: Patient is being admitted to [facility] floor. Chest x-ray does not show acute cardiopulmonary process but hyperinflation. On bronchodilator [id number]. IV Solu-Medrol. On Tamiflu. On Mucinex, chest physiotherapy and incentive spirometry. Patient follows Dr. Harris as an outpatient. Patient had last PFT in June 2018 and reported as partially reversible severe large airway obstru ctive disease with significant improvement in FEV1 by 27%. Last FEV1 48%. 2. Acute hypoxic respiratory failure secondary to COPD exacerbation: Resolved. Patient pulse was 100% on 6 L of oxygen in ER. Currently 96% on room air. Hypertension, history of stroke with residual dysarthria, dysphagia and facial drooping: On aspirin and statin. 3. Acute kidney injury, most probably from prerenal, and/or infection/influenza A: Started on IV fluid normal saline 100 mils per hour. UA is ordered. Patient BUN/creatinine increased from 22/1.16-35/1.59. Lisinopril is discontinued. Follow-up [facility] tomorrow morning. UA is ordered 3. Mild hypokalemia: Potassium replaced. 4. DVT prophylaxis: On Lovenox 40 mg subcu daily. Code Visit Inpatient E&M: 06933 [facility] Hosp L3
[2018-07-30] MEDS: 0.9% Normal Saline 1,000 ML 100 ML IV ×2 (11:00→20:39)
[2018-07-30 12:56] LABS: Bacteria 0 SEEN /hpf (None Seen); Mucous, Urine 0 SEEN /hpf (<or=2+); Red Blood Cells-Urine 0 SEEN /hpf (0-5); Squamous Epithelial Cells - UA 0 SEEN /hpf (0-5)
[2018-07-30 13:02] LABS: Color, Urine Yellow (Yellow); Glucose, Dipstick Normal (Normal); Ketone-Dipstick 5 mg/dl (Negative); Leukocyte Esterase-Dipstick 25 /ul (Negative); Nitrite-Dipstick Negative (Negative); Occult Blood-Urine Negative /ul (Negative); Protein-Dipstick 30 mg/dl (Negative); Urine Bilirubin Dipstick Negative (Negative); Urine Clarity Clear (Clear); Urine Urobilinogen 1 mg/dl (Normal)
[2018-07-30 13:09] LABS: White Blood Cells 0-5 SEEN /hpf (0-5)
--- NOTE | 2018-07-30 13:30 | CASEMGMT ---
RN MARY ANNE BOOK SORTER CM to room to meet with patient for initial transition planning/care coordination assessment. BENJAMIN NORTH introduced self and role at [facility]. Pt voices understanding and consents to assessment at this time. Pt sitting up in chair in no distress at this time. Pt is A/O at this time and answers all questions appropriately. Care providers, pharmacy, and demographics verified/updated at this time. PCP: Henry Specialists: Steven. States thinks he has an appt with Dr Harris tomorrow but is not sure, as his son, Orion, handles all of his appts. Call placed to Dr Harris's office. They stated pt does not have an appt tomorrow but his next 2 appts for Nucala injections are August 10 and September 07. His next appt with Dr Harris is September 14. These appts were documented in D/C follow-up appts on worklist. Preferred Pharmacy: [facility] on day of d/c. Otherwise, [facility] Insurance: [facility], [facility], [facility] Prescription Benefit: Yes. States received a letter stating Duoneb's will no longer be covered but that he didn't respond to the letter. Pt advised to take this letter in to his next appt @ Dr Harris's so they can assist him with this, as sometimes Duoneb's can be billed thru [facility] part B. Living Will/HPOA: Has both LW and HCPOA, who is his , Deanne Smalls. LNOK: , Deanne. Has 2 sons: Orion and Steven, and 2 step-dtr's: Kandis and Karissa Living Arrangements: Lives with in 2-story home. Bedroom is on 2nd floor but pt states he has been sleeping on the couch since it is closer to the bathroom. Discussed option of a BSC so he can sleep in his bedroom, but pt declines. Pt states is independent with personal ADL's. States his cooks the meals and does housecleaning. He states he occasionally needs some assistance with putting on his shoes. Son, Orion, manages his appts. Transportation: Son-Orion or step-daughter Kandis. Pt asked about transportation availability. Provided with [facility] Van transportation information. DME: States has the following DME: built in shower chair, lift chair, cane, rails/grab bars, hand held shower, medical alert button, nebulizer, and CPAP that he got through [facility]. He says he has transferred servies to [place] now. States CPAP mask is leaking. States he had it replaced once already but it started leaking again. He informed [facility] and they told him the next step would be to do a face mold but he has not proceeded with anything further. Advised to take machine and mask in to Dr Harris's office @ next appt. Pt voices understanding. Does not have home O2. Pt states could use a Walker. BENJAMIN Olea CM, made aware. HHC/SNF: Has never been to a SNF or used HHC. Has Passport and CM is Alfredo. Has nurse and an aide through [facility]. [facility] nurse comes 1 x/week and aides come 3 days/wk for 2 hrs each day. Discussed PT/OT recommendations for further therapy but pt declines at this time, stating, I do my own exercises at home. I don't think I need that. Pt made aware if he decides in the future that he would like PT/OT in the future, to discuss this with his PCP. Pt voices understanding. Pt wishes to return home and states has no concerns with going home at time of discharge. Pt states does not smoke or drink ETOH. CM to follow for home oxygen needs and any further discharge planning/needs. Pt voices no further concerns/needs at this time. Advised pt to ask for CM if any further questions/concerns/needs arise. Voices understanding. PLAN: Home Adry HOWARD RN CM
--- NOTE | 2018-07-30 13:55 | CASEMGMT ---
Social Work Note SW updated that pt has PASSPORT and CM is Alfredo. SW placed a call to [facility] and was transferred to pt's CM Alfredo Topper. SW left message for Alfredo informing her of pt's admission to [facility] and discharge plan of pt returning home once medically cleared. Natali Joaquin [employer] HCM CONSULTANT, TROUT FARMER
--- NOTE | 2018-07-30 15:05 | CHAPLAIN ---
Type of Pastoral Visit _x__ Initial Visit ___ Follow-up Visit ___ On-call Visit ___ General Patient Visit ___ Spiritual Assessment ___ Family Conference ___ Bereavement ___ Rapid Response ___ Code Blue ___ Other (describe below) Pastoral Care Referral From _x__ Patient ___ Family ___ Nurse ___ Physician ___ Manager Hiv ___ Skin Lap Bonder ___ Other (describe below) Sacrament/Intervention _x__ Active listening ___ Anointing ___ Restorationism ___ Bereavement ___ Communion ___ Kanika exploration ___ _x__ Life review _x__ Prayer ___ Reconciliation ___ Sacrament of Sick _x__ Supportive presence ___ Wedding ___ Other (describe below) Pastoral Comments
[2018-07-30] MEDS: Atorvastatin Calcium 10 MG Tablet 5 MG PO (21:16)
[2018-07-30] MEDS: Latanoprost 0.005% 1 Bottle 1 DRP LEFT EYE (21:17)
[2018-07-31 02:00] VITALS: PULSE 65
[2018-07-31 03:20] VITALS: BP 146/77; PULSE 60; RESP 16; TEMP 36.6; O2SAT 95
[2018-07-31] MEDS: 0.9% Normal Saline 1,000 ML 100 ML IV (06:13)
[2018-07-31 06:49] VITALS: PULSE 63; RESP 16; O2SAT 93
[2018-07-31] MEDS: Ipratropium/Albuterol Sulfate 3 ML AMPUL.NEB INHALATION ×2 (06:49→10:54)
[2018-07-31 08:10] LABS: Anion Gap 6 (5-15); BUN 24 mg/dL (7-18); Calcium,Total 8.7 mg/dL (8.5-10.1); Chloride 109 mmol/L (98-107); Creatinine, Serum 0.96 mg/dL (0.70-1.30); EST Glomerular Filtration Rate 80 mL/min (>60); Est Glom Filt Rate - Afr Amer 97 mL/min (>60); Estimated Creatinine Clearance 66.45 ml/min; Glucose 111 mg/dL (74-106); Sodium Level 142 mmol/L (136-145)
--- NOTE | 2018-07-31 08:20 | DCINST_ITS ---
- Discharge Diagnoses Current Active Problems: Current Active and Chronic Problems (Last Reviewed 07/28/18 @ 22:14 by Ramon Mccracken MD) Influenza A (Acute) You will use the following diet at home:: Cardiac Your food should be the consistency of: Regular Discharge Activity: May Not Drive Call your doctor if you observe: Fever of 101 or Higher, Inability to urinate, Shortness of breath, Dizziness, Swelling in the ankles, Chest pain Allergies/Adverse Reactions: Allergies tetracycline Allergy (Severe, Verified 07/28/18 19:03) Unknown levofloxacin [From Levaquin] Allergy (Verified 07/28/18 19:03) Pain in joints Medications to take at Discharge Albuterol Inhaler [Ventolin Hfa] 1 - 2 puff INHALATION Q4H PRN PRN 07/28/18 Amlodipine [Norvasc] 5 mg PO DAILY 07/28/18 Aspirin [Aspirin, Baby] 81 mg PO DAILY@0800 07/28/18 Atorvastatin Calcium [Lipitor] 5 mg PO QHS 07/28/18 Fluticasone 220 Mcg [Flovent 220 Mcg] 2 puff INHALATION BID 07/28/18 Ipratropium/Albuterol Sulfate [Duoneb] 3 ml INHALATION Q4H PRN PRN 07/28/18 Lisinopril [Zestril] 10 mg PO BID 07/28/18 Mepolizumab [Nucala] 100 mg SQ QMONTH 07/28/18 [place]-3 Fatty Acids/Fish Oil [Fish Oil 1,000 mg Capsule] 2,000 mg PO DAILY 07/28/18 Travoprost [Travatan Z] 1 drop LEFT EYE QHS 07/28/18 Oseltamivir Phosphate [Tamiflu] 75 mg PO BID #5 capsule 07/31/18 Prednisone 10 mg PO UD #30 tab 07/31/18 The following prescriptions were given: Prednisone 10 mg PO UD #30 tab Oseltamivir Phosphate [Tamiflu] 75 mg PO BID #5 capsule Primary Care Physician: Kunal Figueroa MD [Primary Care Provider] - Please follow up with your Primary Care Physician in: in 1-2 week Test Results: Test results from this visit will be discussed in further detail at your follow- up appointment, if applicable. Please Follow Up With: Daniel Harris MD When: August 10 and September 07.
--- NOTE | 2018-07-31 08:21 | DS.PCM_ITS ---
Discharge Date and Diagnosis Date of Admission: 07/28/18 Date of Discharge: 07/31/18 - Primary Discharge Diagnosis Active and Suspected Problems (Last Reviewed 07/28/18 @ 22:14 by Ramon Mccracken MD) Influenza A (Acute) - Secondary Discharge Diagnosis Chronic Problems (Last Reviewed 07/28/18 @ 22:14 by Ramon Mccracken MD) Severe persistent asthma (Chronic) Wheezing (Chronic) Dyspnea (Chronic) Cough (Chronic) Sleep apnea (Chronic) 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) Glaucoma (Chronic) Cataract (Chronic) surgery sched 06/07/16 Stroke (Chronic) 01/21 HTN (hypertension) (Chronic) Asthma (Chronic) Hospital Course and Treatment Operations: None Summary of Care Provided: The patient is a 77 year old M with a significant history of asthma and severe COPD on nebulization; 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 Patient was found positive for influenza A. 1. COPD exacerbation with acute bronchitis secondary to influenza A: Patient is being admitted to [facility] floor. Chest x-ray does not show acute cardiopulmonary process but hyperinflation. On bronchodilator [id number]. IV Solu-Medrol. On Tamiflu. On Mucinex, chest physiotherapy and incentive spirometry. Patient follows Dr. Harris as an outpatient. Patient was seen by amusement centre manager Dr. Sanchez during hospital stay. Patient had last PFT in June 2018 and reported as partially reversible severe large airway obstructive disease with significant improvement in FEV1 by 27%. Last FEV1 48%. Patient respiratory distress is relieved. Patient is being discharged on tapering dose of prednisone. 2. Acute hypoxic respiratory failure secondary to COPD exacerbation: Resolved. Patient pulse was 100% on 6 L of oxygen in ER. Currently 96% on room air. Hypertension, history of stroke with residual dysarthria, dysphagia and facial drooping: On aspirin and statin. 3. Acute kidney injury, most probably from prerenal, and/or infection/influenza A: Started on IV fluid normal saline 100 mils per hour. UA is ordered. Patient BUN/creatinine increased from 22/1.16-35/1.59. Lisinopril was discontinued. UA is bland with protein 30. Acute kidney injury resolved with BUN/creatinine 24/0.96. Dose of Tamiflu was adjusted 3. Mild hypokalemia: Potassium replaced. 4. DVT prophylaxis: On Lovenox 40 mg subcu daily. Discharge medication reconciliation done. Discharge follow-up instructions completed. Discharge process discussed with the patient and his son present in the room and all questions were answered to patient's satisfaction. Scripts for Tamiflu, tapering dose of prednisone was sent to pharmacy. Patient has inhaler at home. Follow-up with the amusement centre manager, Dr. Harris on August 10September. Patient is due for monthly injection mepolizumab next week. Total time spent, exact 35 minutes on discharge meds reconciliation, examination, review of imaging and blood test and discussion with the patient on follow-up instructions. [] Microbiology Past 72 Hours 07/28/18 19:20 Mucosa - Nose Influenza Types A,B Direct FA (IMANI) - Final Influenzae A Laboratory Results 07/30/18 12:45: Urine Color Yellow, Urine Clarity Clear, Urine pH 6.0, Ur Specific [place] 1.020, Urine Protein 30 H, Urine Glucose (UA) Normal, Urine Ketones 5 H, Urine Occult Blood Negative, Urine Nitrite Negative, Urine Bilirubin Negative, Urine Urobilinogen 1 H, Ur Leukocyte Esterase 25 H, Urine RBC 0 SEEN, Urine WBC 0-5 SEEN, Ur Squamous Epith Cells 0 SEEN, Urine Bacteria 0 SEEN, Urine Mucus 0 SEEN 07/31/18 06:57: Sodium 142, Potassium 5.0, Chloride 109 H, Carbon Dioxide 27.0, Anion Gap 6, BUN 24 H, Creatinine 0.96, Estim Creat Clear Calc 66.45, Est GFR ( MDRD) Af Amer 97, Est GFR (MDRD) Non-Af 80, BUN/Creatinine Ratio 25.0 H, Glucose 111 H, Calcium 8.7 Subjective: Seen and examined. Discussed with Dr. Sanchez. Patient has chronic wheezing. Shortness of breath has resolved. No tachypnea or accessory use of muscles. No hypoxia. - Physical Exam General: Alert, Oriented x3, Cooperative HEENT: Atraumatic, PERRLA, EOMI, Normocephalic Neck: Supple, No JVD, Negative Carotid Bruits Lungs: Diminished, Rhonchi, Wheezes Cardiovascular: Regular rate, Regular Rhythm, Normal S1, Normal S2, No murmurs Abdomen: Bowel Sounds Present, Soft, Non Tender Extremities: No edema, Capillary Refill Less than 3 Seconds Skin: No rashes, No breakdown Musculoskeletal: No Tenderness to Palpation of Joints or Extremities, Arthritic Changes, Muscle Wasting Neurological: Cranial nerves II-XII grossly intact Psych/Mental Status: Normal Affect, Appropriate Vital Signs Temp Pulse Resp BP Pulse Ox 97.9 F 63 16 146/77 H 93 07/31/18 03:20 07/31/18 06:49 07/31/18 06:49 07/31/18 03:20 07/31/18 06:49 Oxygen Flow Rate (L/min) 2 Oxygen Delivery Method Room Air Weight: 187 lb 1.6 oz Body Mass Index (BMI) 26.1 Intake and Output for Last 24 Hours 07/29/18 07/30/18 07/31/18 23:59 23:59 23:59 Intake Total 2146 / 2146 4322 / 4322 1893 / 1893 Balance 214 / 2146 4322 / 4322 1893 / 1893 Microbiology Past 72 Hours 07/28/18 19:20 Influenza Types A,B Direct FA (IMANI) - Final Mucosa - Nose Influenzae A Laboratory Tests Past 24 Hrs 07/30/18 07/31/18 12:45 06:57 Sodium 142 Potassium 5.0 Chloride 109 H Carbon Dioxide 27.0 Anion Gap 6 BUN 24 H Creatinine 0.96 Estim Creat Clear Calc 66.45 Est GFR (MDRD) Af Amer 97 Est GFR (MDRD) Non-Af 80 BUN/Creatinine Ratio 25.0 H Glucose 111 H Calcium 8.7 Urine Color Yellow Urine Clarity Clear Urine pH 6.0 Ur Specific [place] 1.020 Urine Protein 30 H Urine Glucose (UA) Normal Urine Ketones 5 H Urine Occult Blood Negative Urine Nitrite Negative Urine Bilirubin Negative Urine Urobilinogen 1 H Ur Leukocyte Esterase 25 H Urine RBC 0 SEEN Urine WBC 0-5 SEEN Ur Squamous Epith Cells 0 SEEN Urine Bacteria 0 SEEN Urine Mucus 0 SEEN Discharge Activity: May Not Drive Call your doctor if you observe: Fever of 101 or Higher, Inability to urinate, Shortness of breath, Dizziness, Swelling in the ankles, Chest pain Home Medications: Medications to take at Discharge Albuterol Inhaler [Ventolin Hfa] 1 - 2 puff INHALATION Q4H PRN PRN 07/28/18 Amlodipine [Norvasc] 5 mg PO DAILY 07/28/18 Aspirin [Aspirin, Baby] 81 mg PO DAILY@0800 07/28/18 Atorvastatin Calcium [Lipitor] 5 mg PO QHS 07/28/18 Fluticasone 220 Mcg [Flovent 220 Mcg] 2 puff INHALATION BID 07/28/18 Ipratropium/Albuterol Sulfate [Duoneb] 3 ml INHALATION Q4H PRN PRN 07/28/18 Lisinopril [Zestril] 10 mg PO BID 07/28/18 Mepolizumab [Nucala] 100 mg SQ QMONTH 07/28/18 [place]-3 Fatty Acids/Fish Oil [Fish Oil 1,000 mg Capsule] 2,000 mg PO DAILY 07/28/18 Travoprost [Travatan Z] 1 drop LEFT EYE QHS 07/28/18 Oseltamivir Phosphate [Tamiflu] 75 mg PO BID #5 capsule 07/31/18 Prednisone 10 mg PO UD #30 tab 07/31/18 Following Prescrptions Were Given to Patient: Prednisone 10 mg PO UD #30 tab Oseltamivir Phosphate [Tamiflu] 75 mg PO BID #5 capsule Primary Care Physician: Kunal Figueroa MD [Primary Care Provider] - Please follow up with your Primary Care Physician in: in 1-2 week Please Follow Up With: Daniel Harris MD When: August 10 and September 07. When: August 10 and September 07. Medical Necessity - Tobacco Use Smoking Status: Former smoker Tobacco Use: Cigarettes Meaningful Use Info Meaningful Use Diagnoses (Choose all that apply): None applicable Code Visit Inpatient E&M: 74866 [facility] Hosp
[2018-07-31 08:35] VITALS: BP 132/71; PULSE 77; RESP 20; TEMP 36.9; O2SAT 95
[2018-07-31] MEDS: amLODIPine 5 MG Tablet PO (08:49)
[2018-07-31] MEDS: Omega-3 Acid Ethyl Esters 1 GM Capsule 2 GM PO (08:49)
[2018-07-31] MEDS: Aspirin 81 MG TAB.CHEW PO (08:49)
--- NOTE | 2018-07-31 09:20 | CASEMGMT ---
RN MARY ANNE received script for FWW. [place] [facility] [place] [facility]. [place] states that they will pick walker up [place] [facility] [place]. [facility] called and spoke with Kanika that family will be stopping to pepper picker walker.
--- NOTE | 2018-07-31 09:26 | PCA ---
Patient's son will make follow-up appointment with primary care.
[2018-07-31 10:54] VITALS: PULSE 61; RESP 16
[2018-07-31] MEDS: guaiFENesin 1,200 MG Tablet 1200 MG PO (11:03)
[2018-07-31] MEDS: Lisinopril 10 MG Tablet PO (11:03)
[2018-07-31] MEDS: Enoxaparin 40 MG/0.4 ML Syringe SC (11:03)
[2018-07-31] MEDS: Oseltamivir Phosphate 75 MG Capsule PO (11:11)
--- NOTE | 2018-07-31 11:41 | CASEMGMT ---
Social Work Note PRADEEP placed a call to pt's MARY ANNE Martin at [facility] and left her a message regarding pt discharging home today. PRADEEP faxed discharge paperwork to Alfredo. Ntaali Joaquin BURIAL AGENT, MANUFACTURING STOREPERSON
--- NOTE | 2018-08-01 13:54 | CASEMGMT ---
BENJAMIN NORTH Discharge Follow-Up Phone Call. [place]: 12 Strata: 4 Discharge Date: 07/31/18 Adm Dx: Influenza A Infection. Call to pt to inquire about how he has been doing since being discharged from the hospital. Pt states not too bad. Denies having questions about the discharge instructions, medications, or appts. States was able to get the new prescriptions and his son, Orion, is going to be making the follow-up appt with PCP and he is aware of appts @ Dr Harris's. Inquired if pt has any suggestions/recommendations for [facility] and he denies. BENJAMIN NORTH thanked pt for choosing [facility]. Adry HOWARD RN, CM
== END 2018-07-31 11:45 | disposition home or self-care (01) | DRG 193 ==
LOC: ED 21:10 → MS3 21:11
PROVIDERS: Admitting Provider Hospitalist; Emergency Provider Emergency Medicine; Family Provider Family Medicine; PCP Family Medicine; Referring Provider Hospitalist; Visit Provider Internal Medicine
DX: J10.1 Influenza due to other identified influenza virus with other respiratory manifestations (principal); J96.01 Acute respiratory failure with hypoxia; N17.9 Acute kidney failure, unspecified; J44.1 Chronic obstructive pulmonary disease with (acute) exacerbation; I69.322 Dysarthria following cerebral infarction; I69.392 Facial weakness following cerebral infarction; I10 Essential (primary) hypertension; E87.6 Hypokalemia; H54.8 Legal blindness, as defined in USA; I69.391 Dysphagia following cerebral infarction; R13.12 Dysphagia, oropharyngeal phase; Z87.891 Personal history of nicotine dependence; J45.50 Severe persistent asthma, uncomplicated
CPT/HCPCS: 36415; 71045; 80048; 81001; 85025; 87040; 87804; 93005; 94640; 94667; 94668; 97110; 97162; 97165; 97530; 99285; J7030; A4216

== ENCOUNTER → 2018-09-07 12:16 | Outpatient (CLI) | payer MEDICARE, OTHER, MEDICAID, SELFPAY ==
[2018-09-07 10:00] VITALS: BMI 25.9
[2018-09-07 14:19] LABS: Vitamin B12 940 pg/mL (211-911); Vitamin D,25 Hydroxy 30.8 ng/mL (29.95-100.01)
[2018-09-07 14:56] LABS: ALB/GLOB Ratio 1.1 RATIO (0.9-2.4); AST(SGOT) 19 U/L (15-37); Alanine Aminotransfer ALT/SGPT 23 U/L (16-61); Albumin, Serum 3.7 g/dL (3.2-5.0); Alkaline Phosphatase 54 U/L (45-117); Anion Gap 3 (5-15); BUN 18 mg/dL (7-18); BUN/Creat Ratio 18.1 RATIO (10-20); Calcium,Total 8.9 mg/dL (8.5-10.1); Chloride 108 mmol/L (98-107); EST Glomerular Filtration Rate 77 mL/min (>60); Est Glom Filt Rate - Afr Amer 93 mL/min (>60); Globulin 3.3 g/dL (2.2-4.2); Glucose 83 mg/dL (74-106); Potassium 4.2 mmol/L (3.5-5.1); Sodium Level 142 mmol/L (136-145); Thyroid Stim Hormone (TSH) 1.34 uIU/mL (0.358-3.74)
== END ==
PROVIDERS: Family Provider Family Medicine; PCP Family Medicine; Referring Provider Nurse Practitioner Family; Visit Provider Nurse Practitioner Family
DX: R41.0 Disorientation, unspecified (principal); R53.83 Other fatigue; E55.9 Vitamin D deficiency, unspecified
CPT/HCPCS: 36415; 80053; 82306; 82607; 82746; 84443

== ENCOUNTER 2018-09-15 18:24 | Inpatient (IN) | payer MEDICARE, OTHER, MEDICAID, SELFPAY ==
[2018-09-07 10:00] VITALS: BMI 25.9
[2018-09-15] VITALS (13 sets, daily range): BP systolic 117–171; BP diastolic 66–96; PULSE 72–140; RESP 12–40; TEMP 36.4–37.3; O2SAT 88–97; BMI 26.6; BMI 25.7
--- NOTE | 2018-09-15 18:29 | EKG12_ITS ---
Test Reason : SOB Blood Pressure : / mmHG Vent. Rate : 096 BPM Atrial Rate : 096 BPM P-R Int : 208 ms QRS Dur : 104 ms QT Int : 368 ms P-R-T Axes : 076 055 047 degrees QTc Int : 464 ms Sinus rhythm with occasional Premature ventricular complexes and Premature atrial complexes Otherwise normal ECG Confirmed by KENYON WAHL ([id number]), editor & co founder DONNA BERG ([id number]) on 09/17/2018 1:46:52 PM Referred By: Kunal Rollins Confirmed By:KENYON WAHL
--- NOTE | 2018-09-15 18:30 | RAD_ITS ---
STUDY: X-RAY CHEST REASON FOR EXAM: Male, 78 years old. Cough and shortness of breath TECHNIQUE: Single AP portable view of the chest. COMPARISON: Prior study of 07/28/2018 FINDINGS: operator maintainer leads are present. The lungs are clear and expanded. There is no demonstrated pleural abnormality. Normal size heart. Normal mediastinum and antony. Normal visualized pulmonary arteries. There are calcified plaques of the aortic arch. There are diffuse degenerative changes of the visualized thoracic spine. Normal visualized ribs, clavicles, and shoulders. There is no demonstrated abnormality of the visualized soft tissue structures of the upper abdomen. RAD/Chest 1 View (Portable) IMPRESSION: Degenerative changes of the thoracic spine. Calcified plaques of the aortic arch. No acute cardiopulmonary disease process is seen. Electronically Signed: Davon Adams MD at 19:35 EDT , Service support ,
--- NOTE | 2018-09-15 18:30 | ED.VISSUMM ---
- ER Visit Summary Date of Service: 09/15/18 Chief Complaint: Shortness of breath History of Present Illness: The patient is a 78 M presents to the emergency department shortness of breath. Patient has significant history of COPD. He has not on home oxygen. He does use a CPAP at night. He follows with Dr. Harris. With past few days, he states he is been having increasing exacerbations. He states he will go for a period of time without being short of breath, and then rather acutely will have bronchospasm. He states his been using his nebulizer every 4 hours and it seems to get better, but then comes back. He had a cough without productive sputum. He denies any fevers. Denies any chills or sweats. Patient was hospitalized about 6 weeks ago for COPD exacerbation complicated by influenza. He states he was doing well until this week. That was the last time that he was on steroids. He denies any history of coronary vascular disease. Physical Examination: Vital signs reviewed General: Well-nourished, well-developed Head: Normocephalic, atraumatic Eyes: Pupils equal and reactive, extraocular muscles intact Neck, supple, no lymphadenopathy Heart: Regular rate and rhythm Respiratory: Mild distress, wheezing in all lung cali with prolonged expiration Abdomen: Soft, nontender, nondistended, no peritoneal signs Back: Nontender Extremities: Nontender, no edema, no cords Skin: Normal color no rash Neuro: Alert and oriented, no focal or lateralizing deficits Test Results: [] Emergency Department Course and Treatment: Patient presents with tachycardia and shortness of breath. He has wheezing in all lung cali. He was placed on supplemental oxygen given his hypoxia. He was given nebulized breathing treatments. He did have some improvement of his aeration but still had tachypnea. He was placed on BiPAP and an ABG was obtained. Chest x-ray does not show focal infiltrate. EKG demonstrates sinus tachycardia with a few PVCs but no acute ischemia. Cardiac enzymes are normal. The patient did have improvement of his respiratory rate with the BiPAP. He is covered with azithromycin as his chest x-ray does not show an infiltrate. I do feel that this is likely severe COPD exacerbation. Given his respiratory failure, the patient is going to require admission. He was discussed with the hospitalist. Treatment Plan: [] Disposition: Admission Impression: 1. COPD exacerbation 2. Respiratory failure This note was generated with Dragon dictation software. It may contain incorrect words, spelling, and punctuation that were not noted in review of the chart prior to signing ED Disposition - Plan for ED Patient: Referrals: Kunal Figueroa MD [Primary Care Provider] -
[2018-09-15] MEDS: Albuterol 2.5 MG/3 ML VIAL.NEB. INHALATION ×3 (18:41)
[2018-09-15] MEDS: Ipratropium/Albuterol Sulfate 3 ML AMPUL.NEB INHALATION ×2 (18:41→22:57)
[2018-09-15] MEDS: 0.9% Normal Saline 1,000 ML 150 ML IV (18:46)
[2018-09-15] MEDS: MethylPREDNISolone 125 MG/2 ML Vial IV (18:46)
[2018-09-15 18:57] LABS: Absolute Lymphocyte Count 2.13 X10^3/ul (0.83-4.51); Absolute Neutrophil Count 4.3 X10^3/uL (2.0-7.7); Basophil# 0.02 X10^3/uL; Basophil% 0.3 % (0-1); Hematocrit 42.8 % (40-54); Hemoglobin 14.1 g/dl (13.0-16.5); Lymphocyte # 2.13 X10^3/ul (4.0); Lymphocyte % 27.8 % (19-41); Mean Corp Hgb Conc 32.9 g/gl (32-36); Mean Corpuscular Hgb 29.7 pg (27.0-32.0); Mean Corpuscular Volume 90.3 fL (80-94); Monocyte# 1.22 X10^3/uL; Monocyte% 15.9 % (0-10); Neutrophil # 4.28 X10^3/uL (2.7-7.7); Neutrophil % 55.9 % (47-70); Platelet Count 225 K/mm3 (150-450); RBC Distribution Width CV 14.6 % (11.6-14.6); RBC Distribution Width SD 48.4 fl (35.1-43.9); Red Blood Count 4.74 M/mm3 (4.6-6.2); White Blood Count 7.7 K/mm3 (4.4-11.0)
[2018-09-15 19:00] LABS: POSITIVE COUNT NO; POSITIVE DIFFERENTIAL NO; POSITIVE MORPHOLOGY NO
[2018-09-15] MEDS: Ondansetron 4 MG/2 ML Vial IV (19:04)
[2018-09-15 19:06] LABS: Anion Gap 6 (5-15); BUN 18 mg/dL (7-18); Calcium,Total 8.9 mg/dL (8.5-10.1); Chloride 108 mmol/L (98-107); Creatinine, Serum 1.06 mg/dL (0.70-1.30); EST Glomerular Filtration Rate 72 mL/min (>60); Est Glom Filt Rate - Afr Amer 87 mL/min (>60); Estimated Creatinine Clearance 60.18 ml/min; Glucose 140 mg/dL (74-106); Potassium 3.6 mmol/L (3.5-5.1); Sodium Level 142 mmol/L (136-145)
[2018-09-15 19:35] LABS: Allen Test POS; Base Excess 2 mmol/L (-2 to +2); Bicarbonate 26.9 mmol/L (22-26); Blood Gas Specimen Type ART; EPAP 6; FI02 40; IPAP 12; PO2 137 mmHG (75-100); RR 12; SITE L Radial; SO2 99 % (95-99); Time Given 1925; Total Carbon Dioxide 28 mmol/L; pCO2 44.9 mmHg (35-45); pH 7.39 (7.35-7.45)
--- NOTE | 2018-09-15 20:03 | HP.PCM_ITS ---
Problem List (1) Shortness of breath Status: Acute History of Present Illness Date of Admission: 09/15/18 Chief Complaint: Shortness of breath The patient is a 78 year old M who was seen in the emergency room at [facility] with chief complaint of shortness of breath which is worsened over the past several days. Patient states that he is having no chills or fever, he is not coughing up any sputum. Patient was recently treated for infl uenza A. He is not on any oxygen at home. Evaluation in the emergency room showed the patient to be very dyspneic and using accessory muscles, patient was placed on BiPAP due to hypoxia, labs were o btained-CBC was unremarkable, glucose was 140, beta natruretic peptide was 116. Patient had a chest x-ray performed it showed no active infiltrates. Patient was given several aerosol treatments and IV Solu-Medrol as well as IV Zithromax. Patient stabilized on BiPAP. Patient will be admitted to PCU for acute hypoxic respiratory failure, exacerbation of COPD, and flareup of asthma. 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) Glaucoma (Chronic) Cataract (Chronic) surgery sched 06/07/16 Stroke (Chronic) 01/21 HTN (hypertension) (Chronic) Asthma (Chronic) Medical History: Medical History (Last Reviewed 07/28/18 @ 22:14 by Ramon Mccracken MD) shunt revision (Resolved) Wheezing (Chronic) R06.2 Dyspnea (Chronic) R06.00 Cough (Chronic) R05 Sleep apnea (Chronic) G47.30 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) J44.9 alpha 1 (Chronic) Thrush, oral (Resolved) B37.0 Glaucoma (Chronic) H40.9 Cataract (Chronic) H26.9 surgery sched 06/07/16 Stroke (Chronic) I63.9 01/21 HTN (hypertension) (Chronic) I10 Asthma (Chronic) J45.909 COPD with acute exacerbation (Acute) J44.1 Allergies tetracycline Allergy (Severe, Verified 09/15/18 18:25) Unknown levofloxacin [From Levaquin] Allergy (Verified 09/15/18 18:25) Pain in joints Home Medications: Ambulatory Orders Medication Instructions Recorded Amlodipine [Norvasc] 5 mg PO DAILY 07/28/18 Aspirin [Aspirin, Baby] 81 mg PO DAILY@0800 07/28/18 Atorvastatin Calcium [Lipitor] 5 mg PO QHS 07/28/18 Fluticasone 220 Mcg [Flovent 220 2 puff INHALATION BID 07/28/18 Mcg] Lisinopril [Zestril] 20 mg PO BID 07/28/18 Mepolizumab [Nucala] 100 mg SQ QMONTH 07/28/18 Travoprost [Travatan Z] 1 drp LEFT EYE QHS 07/28/18 ipratropium-albuterol 0.5 mg-3 3 ml INHALATION Q4H PRN PRN #180 ml 08/10/18 mg(2.5 mg base)/3 mL nebulization soln albuterol sulfate HFA 90 1 - 2 puff INHALATION Q4H PRN PRN 08/15/18 mcg/actuation aerosol inhaler #18 g Brimonidine Tartrate [Alphagan P] 5 ml OP TID 09/15/18 Surgical History: Surgical History (Last Reviewed 07/28/18 @ 22:14 by Ramon Mccracken MD) Status post lung surgery (Resolved) Z98.890 Cataract extraction status (Resolved) Z98.49 Hx of colonoscopy (Resolved) Z98.890 Surgical History: cataract - s/p R eye stent placement to decrease IOP, lens implantation, scheduled for L eye sx 06/07/16. Blind R eye Psychiatric History: No pertinent psych hx Lives: Spouse/ Significant Other Smoking Status: Former smoker Tobacco Use: Non-smoker Alcohol: None Drugs: None - *Family History Paternal Family History: Family History (Last Reviewed 07/28/18 @ 22:15 by Ramon Mccracken MD) Brother Cancer Mother Heart disease Father Absolute glaucoma History Items: No pertinent history Maternal Family History: Family History (Last Reviewed 07/28/18 @ 22:15 by Ramon Mccracken MD) Brother Cancer Mother Heart disease Father Absolute glaucoma History Items: No pertinent history Review of Systems Constitutional: Reports: Fatigue. Denies: Anorexia, Chills, Fever, Night Sweats, Malaise, Weakness, Weight Change Eyes: Denies: Cataracts, Conjunctivae Inflammation, Double vision, Drainage HEENT: Denies: Difficulty Swallowing, Dysphasia, Ear Pain, Eye Pain, Hearing Changes, Nasal bleeding, Nasal Congestion, Post Nasal Drip Cardiovascular: Denies: Chest Pain, Claudication, Chest Pressure, Chest Tightness, Edema, Heaviness, Palpitations Respiratory: Reports: Cough, Shortness of Breath, Shortness of breath at rest, Shortness of breath upon exertion, Wheezing. Denies: Hemoptysis, Pleuritic Pain, Sputum production Gastrointestinal: Denies: Abdominal Pain, Constipation, Diarrhea, Hematemesis, Hematochezia, Nausea, Melena, Vomiting Genitourinary: Denies: Dysuria, Frequency, Hematuria, Hesitancy, Urgency Musculoskeletal: Denies: Back Pain, Foot Pain, Joint Pain, Joint stiffness, Joint swelling Skin: Denies: Dryness, Pruritis, Rash Neurological: Denies: Blurred vision, Double vision, Slurred speech, Difficulty swallowing, Focal weakness, Headaches, Incoordination, Numbness, Tingling Psychiatric: Denies: Anxiety, Depression, Homicidal Ideations, Suicidal Ideations Endocrine: Denies: Change in Body Habitus, Heat/ Cold Intolerance, Polydipsia, Polyuria Hematologic/ Lymphatic: Denies: Adenopathy, Anemia, Easy Bruising, Easy Bleeding, Petechiae, Purpura VTE Information - Inpt Only VTE Present on Admission: No VTE Mechan Device Prophylaxis: None VTE Pharm Prophylaxis ordered?: Yes Patient Problems: Active and Suspected Problems (Last Updated 09/15/18 @ 20:05 by Kunal Rollins DO) Shortness of breath (Acute) - Physical Exam General: Alert, Oriented x3, Cooperative, Well developed, - - Patient is in moderate respiratory distress at the time of my examination, he is on BiPAP HEENT: Atraumatic, PERRLA, EOMI, Normocephalic Neck: Supple, No JVD, Negative Carotid Bruits, No Nuchal Rigidity, Trachea Midline, Thyroid Normal Size and Texture Lungs: No rhonchi, No rales, Diminished, Wheezes - High-pitched expiratory wheezes are noted bilaterally Cardiovascular: Regular rate, Normal S1, Normal S2, No murmurs, Tachycardic Abdomen: Bowel Sounds Present, Soft, Non Tender, Non-Distended, No hernias noted Extremities: Capillary Refill Less than 3 Seconds, Edema - Mild pitting edema is noted in the lower legs bilaterally Skin: No rashes, No breakdown Musculoskeletal: No Tenderness to Palpation of Joints or Extremities Neurological: Cranial nerves II-XII grossly intact, Neuro grossly intact, Motor Exam 5/5 strength throughout, Sensory exam intact to light touch and pain, Coordination normal Psych/Mental Status: Normal Affect, Appropriate, Alert and oriented to time, place, person, mood and affect Vital Signs Temp Pulse Resp BP Pulse Ox 99.2 F H 140 H 19 H 157/68 H 97 09/15/18 19:26 09/15/18 19:26 09/15/18 19:26 09/15/18 19:26 09/15/18 19:26 Oxygen Flow Rate (L/min) 2 Oxygen Delivery Method Bi-pap Weight: 86.5 kg Body Mass Index (BMI) 26.6 Laboratory Tests Past 24 Hrs 09/15/18 09/15/18 09/15/18 18:29 18:30 18:30 WBC 7.7 RBC 4.74 Hgb 14.1 Hct 42.8 MCV 90.3 MCH 29.7 MCHC 32.9 RDW 14.6 RDW Differential 48.4 H Plt Count 225 MPV 11.0 Immature Gran % (Auto) 0.100 Neut % (Auto) 55.9 Lymph % (Auto) 27.8 Tate % (Auto) 15.9 H Eos % (Auto) 0.0 Baso % (Auto) 0.3 Absolute Neuts (auto) 4.3 Absolute Lymphs (auto) 2.13 Total Counted Not Reportable Specimen Type Sample Site pH Bicarbonate Actual POC Total CO2 Base Excess O2 Saturation O2 % ABG pCO2 ABG pO2 Tez Test Respiration Rate O2 Delivery Device EPAP IPAP Blood Gas Notified Whom Blood Gas Notified Time Sodium 142 Potassium 3.6 Chloride 108 H Carbon Dioxide 28.0 Anion Gap 6 BUN 18 Creatinine 1.06 Estim Creat Clear Calc 60.18 Est GFR (MDRD) Af Amer 87 Est GFR (MDRD) Non-Af 72 BUN/Creatinine Ratio 17.0 Glucose 140 H Lactic Acid 2.0 Calcium 8.9 Troponin I < 0.015 B-Natriuretic Peptide 09/15/18 09/15/18 18:30 19:29 WBC RBC Hgb Hct MCV MCH MCHC RDW RDW Differential Plt Count MPV Immature Gran % (Auto) Neut % (Auto) Lymph % (Auto) Tate % (Auto) Eos % (Auto) Baso % (Auto) Absolute Neuts (auto) Absolute Lymphs (auto) Total Counted Specimen Type ART Sample Site L Radial pH 7.39 Bicarbonate Actual 26.9 H POC Total CO2 28 Base Excess 2 O2 Saturation 99 O2 % 40 ABG pCO2 44.9 ABG pO2 137 H Tez Test POS Respiration Rate 12 O2 Delivery Device Bi / C PAP EPAP 6 IPAP 12 Blood Gas Notified Whom ED Blood Gas Notified Time 1924 Sodium Potassium Chloride Carbon Dioxide Anion Gap BUN Creatinine Estim Creat Clear Calc Est GFR (MDRD) Af Amer Est GFR (MDRD) Non-Af BUN/Creatinine Ratio Glucose Lactic Acid Calcium Troponin I B-Natriuretic Peptide 116.0 H Assessment/Plan All Active Problems (Last Updated 09/15/18 @ 20:05 by Kunal Rollins DO) Influenza A (Resolved) Shortness of breath (Acute) shunt revision (Resolved) Status post lung surgery (Resolved) Cataract extraction status (Resolved) Hx of colonoscopy (Resolved) Thrush, oral (Resolved) COPD with acute exacerbation (Acute) #1 acute hypoxic respiratory failure secondary to exacerbation of COPD/flareup of chronic asthma-patient will be admitted to PCU, he will remain on BiPAP, pulse ox will be monitored #2 acute exacerbation of COPD-patient will continue on aggressive aerosol treatments, IV corticosteroids, and p.o. Zithromax. 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 #6 hyperlipidemia Code Visit Inpatient E&M: 76387 Init Hosp L3
[2018-09-15] MEDS: Latanoprost 0.005% 1 Bottle 1 DRP LEFT EYE (21:49)
[2018-09-15] MEDS: Lisinopril 20 MG Tablet PO (21:50)
[2018-09-15] MEDS: Atorvastatin Calcium 10 MG Tablet 5 MG PO (21:50)
[2018-09-15 23:00] LABS: Reflex Lactate? Y
[2018-09-15 23:50] LABS: Lactic Acid 1.6 mmol/L (0.4-2.0)
[2018-09-16] VITALS (18 sets, daily range): BP systolic 99–120; BP diastolic 54–61; PULSE 58–113; RESP 12–30; TEMP 36.4–36.9; O2SAT 92–98
--- NOTE | 2018-09-16 01:50 | NURSING ---
This RN received handoff and took over care of patient at this time.
[2018-09-16] MEDS: Ipratropium/Albuterol Sulfate 3 ML AMPUL.NEB INHALATION ×6 (03:28→22:00)
--- NOTE | 2018-09-16 08:40 | EKG12_ITS ---
Test Reason : ARHYTHMIA Blood Pressure : / mmHG Vent. Rate : 125 BPM Atrial Rate : 088 BPM P-R Int : 000 ms QRS Dur : 108 ms QT Int : 358 ms P-R-T Axes : 000 -09 -07 degrees QTc Int : 516 ms Atrial fibrillation with rapid ventricular response with premature ventricular or aberrantly conducte d complexes Possible Inferior infarct , age undetermined Abnormal ECG Confirmed by VENITA GOMEZ, IVONNE ([id number]), production editor DONNA BERG ([id number]) on 09/19/2018 1:58:00 PM Referred By: Kunal Rollins Confirmed By:IVONNE NATHAN MD
--- NOTE | 2018-09-16 09:31 | ECHOD_ITS ---
Reason For Study: Afib/Flutter Procedure This was a 2D Doppler, Color Flow transthoracic echocardiogram. Technically difficult study, echo done with patient sitting up and on BIPAP. Exam performed portable in patient room. Left Ventricle Normal LV size. Left ventricular systolic function is normal. The estimated ejection fraction is 60 %. Stage 1 diastolic dysfunction. No regional wall motion abnormalities noted. Right Ventricle Normal RV size. Normal systolic function. Atria Normal left atrium. Normal right atrium. Mitral Valve Normal mitral valve. Tricuspid Valve Normal tricuspid valve. Aortic Valve Normal aortic valve. Pulmonic Valve Normal pulmonic valve. Great Vessels Normal aortic root. The pulmonary artery is normal size. Normal inferior vena cava. Pericardium/Pleural No pericardial effusion. MMode/2D Measurements & Calculations LVIDd: 4.2 cm IVSd: 1.1 cm LA dimension: 3.5 cm LVIDs: 3.3 cm LVPWd: 1.1 cm FS: 20.8 % LAV(MOD-bp): 51.6 ml LA A4 area: 15.3 cm2 RA A4 area: 14.9 cm2 LAV(MOD-bp) Indexed: 25.4 ml/m2 LAV(MOD-sp2): 66.1 ml LAV(MOD-sp4): 37.0 ml Time Measurements MV dec time: 0.28 sec Doppler Measurements & Calculations MV E max sacnho: 48.7 cm/sec Lat Peak E' Sancho: 8.9 cm/sec Med Peak E' Sancho: 5.7 cm/sec MV A max sancho: 58.4 cm/sec E/E' lat: 5.5 E/E' med: 8.5 MV E/A: 0.83 MV V2 max: 57.0 cm/sec MV P1/2t max sancho: 48.5 cm/sec Ao V2 max: 138.9 cm/sec MV max P.3 mmHg MV P1/2t: 73.8 msec Ao max P.7 mmHg MV V2 mean: 34.7 cm/sec MV dec slope: 192.6 cm/sec2 Ao V2 mean: 86.1 cm/sec MV mean P.56 mmHg MVA(P1/2t): 3.0 cm2 Ao mean P.6 mmHg MV V2 VTI: 13.8 cm Ao V2 VTI: 24.0 cm LV V1 max: 121.3 cm/sec PA V2 max: 69.3 cm/sec LV V1 max P.9 mmHg LV V1 mean P.7 mmHg LV V1 mean: 76.0 cm/sec LV V1 VTI: 21.1 cm Interpretation Summary Normal LV size. Left ventricular systolic function is normal. The estimated ejection fraction is 60 %. Stage 1 diastolic dysfunction. Compared to prior study, there is no significant change. Ordering Physician: MARLA Melendez Referring Physician: Kunal Rollins Performed By: Jose Carlos Bazan RCS
[2018-09-16] MEDS: Aspirin 81 MG TAB.CHEW PO (10:28)
[2018-09-16] MEDS: Azithromycin 250 MG Tablet 500 MG PO (10:28)
[2018-09-16] MEDS: Enoxaparin 80 MG/0.8 ML Syringe SC ×2 (10:28→21:08)
[2018-09-16] MEDS: amLODIPine 5 MG Tablet PO (10:28)
[2018-09-16] MEDS: Lisinopril 20 MG Tablet PO ×2 (10:28→21:08)
[2018-09-16] MEDS: dilTIAZem CD 120 MG Capsule PO (10:28)
--- NOTE | 2018-09-16 12:53 | PN_ITS ---
<Natalee Tay - Last Filed: 09/16/18 12:53> Patient Problems: Active and Suspected Problems (Last Updated 09/15/18 @ 20:05 by Kunal Rollins DO) Shortness of breath (Acute) Subjective: Patient seen and examined. Reports improvement in breathing. Oxygen now stable on room air. Denies chest pain, palpitations. - Physical Exam General: Alert, Oriented x3, Cooperative HEENT: Atraumatic, PERRLA, EOMI, Normocephalic Neck: Supple, No JVD, Negative Carotid Bruits Lungs: Diminished, Wheezes Cardiovascular: - - Atrial for ablation, tachycardic. Abdomen: Bowel Sounds Present, Soft, Non Tender, Non-Distended Extremities: No clubbing, No cyanosis, Capillary Refill Less than 3 Seconds, Edema - Nonpitting bilateral lower extremities Skin: No rashes, No breakdown Musculoskeletal: No Tenderness to Palpation of Joints or Extremities Neurological: Cranial nerves II-XII grossly intact, Neuro grossly intact Psych/Mental Status: Normal Affect, Appropriate Vital Signs Temp Pulse Resp BP Pulse Ox 98.5 F 94 18 120/54 L 94 09/16/18 09:00 09/16/18 10:49 09/16/18 10:49 09/16/18 09:00 09/16/18 09:00 Oxygen Flow Rate (L/min) 5 Oxygen Delivery Method Room Air Weight: 184 lb 8.43 oz Body Mass Index (BMI) 25.7 Intake and Output for Last 24 Hours 09/14/18 09/15/18 09/16/18 23:59 23:59 23:59 Intake Total 1011 / 1011 Output Total 200 / 200 Balance 811 / 811 Laboratory Tests Past 24 Hrs 09/15/18 09/15/18 09/15/18 18:29 18:30 18:30 WBC 7.7 RBC 4.74 Hgb 14.1 Hct 42.8 MCV 90.3 MCH 29.7 MCHC 32.9 RDW 14.6 RDW Differential 48.4 H Plt Count 225 MPV 11.0 Immature Gran % (Auto) 0.100 Neut % (Auto) 55.9 Lymph % (Auto) 27.8 Major % (Auto) 15.9 H Eos % (Auto) 0.0 Baso % (Auto) 0.3 Absolute Neuts (auto) 4.3 Absolute Lymphs (auto) 2.13 Total Counted Not Reportable Specimen Type Sample Site pH Bicarbonate Actual POC Total CO2 Base Excess O2 Saturation O2 % ABG pCO2 ABG pO2 Tez Test Respiration Rate O2 Delivery Device EPAP IPAP Blood Gas Notified Whom Blood Gas Notified Time Sodium 142 Potassium 3.6 Chloride 108 H Carbon Dioxide 28.0 Anion Gap 6 BUN 18 Creatinine 1.06 Estim Creat Clear Calc 60.18 Est GFR (MDRD) Af Amer 87 Est GFR (MDRD) Non-Af 72 BUN/Creatinine Ratio 17.0 Glucose 140 H Lactic Acid 2.0 Calcium 8.9 Troponin I < 0.015 B-Natriuretic Peptide 09/15/18 09/15/18 09/15/18 18:30 19:29 22:15 WBC RBC Hgb Hct MCV MCH MCHC RDW RDW Differential Plt Count MPV Immature Gran % (Auto) Neut % (Auto) Lymph % (Auto) Major % (Auto) Eos % (Auto) Baso % (Auto) Absolute Neuts (auto) Absolute Lymphs (auto) Total Counted Specimen Type ART Sample Site L Radial pH 7.39 Bicarbonate Actual 26.9 H POC Total CO2 28 Base Excess 2 O2 Saturation 99 O2 % 40 ABG pCO2 44.9 ABG pO2 137 H Tez Test POS Respiration Rate 12 O2 Delivery Device Bi / C PAP EPAP 6 IPAP 12 Blood Gas Notified Whom ED MD Blood Gas Notified Time 1924 Sodium Potassium Chloride Carbon Dioxide Anion Gap BUN Creatinine Estim Creat Clear Calc Est GFR (MDRD) Af Amer Est GFR (MDRD) Non-Af BUN/Creatinine Ratio Glucose Lactic Acid 1.6 Calcium Troponin I B-Natriuretic Peptide 116.0 H 09/16/18 10:18 WBC RBC Hgb Hct MCV MCH MCHC RDW RDW Differential Plt Count MPV Immature Gran % (Auto) Neut % (Auto) Lymph % (Auto) Major % (Auto) Eos % (Auto) Baso % (Auto) Absolute Neuts (auto) Absolute Lymphs (auto) Total Counted Specimen Type Sample Site pH Bicarbonate Actual POC Total CO2 Base Excess O2 Saturation O2 % ABG pCO2 ABG pO2 Tez Test Respiration Rate O2 Delivery Device EPAP IPAP Blood Gas Notified Whom Blood Gas Notified Time Sodium Potassium Chloride Carbon Dioxide Anion Gap BUN Creatinine Estim Creat Clear Calc Est GFR (MDRD) Af Amer Est GFR (MDRD) Non-Af BUN/Creatinine Ratio Glucose Lactic Acid Calcium Troponin I < 0.015 B-Natriuretic Peptide Medical Necessity - Tobacco Use Smoking Status: Former smoker Tobacco Use: Non-smoker Assessment/Plan All Active Problems (Last Updated 09/15/18 @ 20:05 by Kunal Rollins DO) Influenza A (Resolved) Shortness of breath (Acute) shunt revision (Resolved) Status post lung surgery (Resolved) Cataract extraction status (Resolved) Hx of colonoscopy (Resolved) Thrush, oral (Resolved) COPD with acute exacerbation (Acute) 1. Acute hypoxic respiratory failure secondary to COPD/eosinophilic asthma exacerbation-chest x-ray on admission without acute process. Respiratory panel pending. Patient follows with Dr. Harris. Continue IV Solu-Medrol. P.o. azithromycin. Albuterol and DuoNeb aerosols. Walking pulse ox prior to discharge. Initially requiring BiPAP, oxygen now stable on room air. 2. New onset atrial fibrillation-no prior history. No known CAD. Reports he has not had previous stress test. Check TSH, mag. Trend enzymes. Obtain echo. Begin therapeutic Lovenox subcu. If patient remains in atrial fibrillation, may need to consider oral anticoagulation at discharge. Oral Cardizem 120 mg x 1. Continue to monitor. 3. Hypertension-stable, continue amlodipine, lisinopril regimen. 4. Hyperlipidemia-continue statin. 5. ANNEL-continue BiPAP nightly. DVT prophylaxis-therapeutic Lovenox subcu This patient was seen by MARLA Melendez under the supervision of Dr. Roman. <Ron Roman - Last Filed: 09/16/18 14:29> Subjective: Patient seen and examined. Discussed with the patient sounds near the bedside. Patient was admitted with shortness of breath, cough productive in nature, weak cough reflex. And was on BiPAP last night. Patient was admitted in July 2018 for COPD exacerbation secondary to influenza A bronchitis. Was treated with Tamiflu at that time. 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 History of CVA with residual dysarthria, dysphagia and possible cough on swallowing. - Physical Exam General: Alert, Oriented x3, Cooperative HEENT: Atraumatic, PERRLA, EOMI, Normocephalic Neck: Supple, No JVD, Negative Carotid Bruits Lungs: Diminished - diminished diffuse, and anterior, lateral and posterior lung cali., Rhonchi, Tachypneic, Wheezes Cardiovascular: Normal S1, Normal S2, No murmurs, Irregular Rate, Tachycardic, - - Atrial for ablation, tachycardic. Atrial fibrillation and sometimes sinus arrhythmia. Abdomen: Bowel Sounds Present, Soft, Non Tender, Non-Distended Extremities: Capillary Refill Less than 3 Seconds, Edema Skin: No rashes, No breakdown Musculoskeletal: No Tenderness to Palpation of Joints or Extremities, Arthritic Changes, Muscle Wasting Lymphatic: No Cervical, Supraclavicular, or Inguinal Adenopathy Neurological: - - CVA with residual dysarthria, dysphagia and facial drooping Psych/Mental Status: Normal Affect, Appropriate Vital Signs Temp Pulse Resp BP Pulse Ox 98.5 F 94 18 120/54 L 94 09/16/18 09:00 09/16/18 10:49 09/16/18 10:49 09/16/18 09:00 09/16/18 09:00 Oxygen Flow Rate (L/min) 5 Oxygen Delivery Method Room Air Weight: 184 lb 8.43 oz Body Mass Index (BMI) 25.7 Intake and Output for Last 24 Hours 09/14/18 09/15/18 09/16/18 23:59 23:59 23:59 Intake Total 1011 / 1011 Output Total 200 / 200 Balance 811 / 811 Microbiology Past 72 Hours 09/15/18 20:44 Respiratory Panel (PCR) - Final Mucosa - Nasopharyngeal Parainfluenza 3 Laboratory Tests Past 24 Hrs 09/15/18 09/15/18 09/15/18 18:29 18:30 18:30 WBC 7.7 RBC 4.74 Hgb 14.1 Hct 42.8 MCV 90.3 MCH 29.7 MCHC 32.9 RDW 14.6 RDW Differential 48.4 H Plt Count 225 MPV 11.0 Immature Gran % (Auto) 0.100 Neut % (Auto) 55.9 Lymph % (Auto) 27.8 Major % (Auto) 15.9 H Eos % (Auto) 0.0 Baso % (Auto) 0.3 Absolute Neuts (auto) 4.3 Absolute Lymphs (auto) 2.13 Total Counted Not Reportable Specimen Type Sample Site pH Bicarbonate Actual POC Total CO2 Base Excess O2 Saturation O2 % ABG pCO2 ABG pO2 Tez Test Respiration Rate O2 Delivery Device EPAP IPAP Blood Gas Notified Whom Blood Gas Notified Time Sodium 142 Potassium 3.6 Chloride 108 H Carbon Dioxide 28.0 Anion Gap 6 BUN 18 Creatinine 1.06 Estim Creat Clear Calc 60.18 Est GFR (MDRD) Af Amer 87 Est GFR (MDRD) Non-Af 72 BUN/Creatinine Ratio 17.0 Glucose 140 H Lactic Acid 2.0 Calcium 8.9 Magnesium Troponin I < 0.015 B-Natriuretic Peptide TSH 09/15/18 09/15/18 09/15/18 18:30 19:29 22:15 WBC RBC Hgb Hct MCV MCH MCHC RDW RDW Differential Plt Count MPV Immature Gran % (Auto) Neut % (Auto) Lymph % (Auto) Major % (Auto) Eos % (Auto) Baso % (Auto) Absolute Neuts (auto) Absolute Lymphs (auto) Total Counted Specimen Type ART Sample Site L Radial pH 7.39 Bicarbonate Actual 26.9 H POC Total CO2 28 Base Excess 2 O2 Saturation 99 O2 % 40 ABG pCO2 44.9 ABG pO2 137 H Tez Test POS Respiration Rate 12 O2 Delivery Device Bi / C PAP EPAP 6 IPAP 12 Blood Gas Notified Whom ED MD Blood Gas Notified Time 192 Sodium Potassium Chloride Carbon Dioxide Anion Gap BUN Creatinine Estim Creat Clear Calc Est GFR (MDRD) Af Amer Est GFR (MDRD) Non-Af BUN/Creatinine Ratio Glucose Lactic Acid 1.6 Calcium Magnesium Troponin I B-Natriuretic Peptide 116.0 H TSH 09/16/18 09/16/18 09/16/18 10:18 10:18 13:02 WBC RBC Hgb Hct MCV MCH MCHC RDW RDW Differential Plt Count MPV Immature Gran % (Auto) Neut % (Auto) Lymph % (Auto) Major % (Auto) Eos % (Auto) Baso % (Auto) Absolute Neuts (auto) Absolute Lymphs (auto) Total Counted Specimen Type Sample Site pH Bicarbonate Actual POC Total CO2 Base Excess O2 Saturation O2 % ABG pCO2 ABG pO2 Tez Test Respiration Rate O2 Delivery Device EPAP IPAP Blood Gas Notified Whom Blood Gas Notified Time Sodium Potassium Chloride Carbon Dioxide Anion Gap BUN Creatinine Estim Creat Clear Calc Est GFR (MDRD) Af Amer Est GFR (MDRD) Non-Af BUN/Creatinine Ratio Glucose Lactic Acid Calcium Magnesium 2.1 Troponin I < 0.015 Pending B-Natriuretic Peptide TSH 0.37 Assessment/Plan This patient was seen in conjunction with [employer] AND DRINK FACTORY WORKERSNatalee. I have independently interviewed and examined the patient and reviewed pertinent history, examination findings, laboratory and plan of management. I have reviewed the note and agree with the documented findings with the few additional points. In brief, patient is admitted for acute hypoxic respiratory failure secondary to COPD/ASTHMA exacerbation. Symptoms are started about 2 weeks ago with change of weather. Patient was started on BiPAP his breathing is better. Respiratory panel is positive for parainfluenza 3. Cultures x2 are pending. Sputum culture ordered. Patient is on bronchodilator, IV Medrol, Zithromax, pulmonary/chest physiotherapy and incentive spirometry. Speech evaluation ordered for further swallowing testing. Patient also new onset of A. fib with no prior history of arrhythmia or coronary artery disease. We will troponin enzymes are negative therefore acute cord syndrome ruled out. TSH 0.37, at the lower end of normal. Free T4 ordered for tomorrow a.m. BNP normal. Recent 2.1. On [employer] CD. Therapeutic Lovenox subcutaneous for stroke prophylaxis 2D echo is ordered for tomorrow. I have discussed my assessment with FO[employer] AND DRINK FACTORY WORKERSNatalee and orders have been reviewed. Code Visit Inpatient E&M: 62554 Subs Hosp L3
[2018-09-16 13:18] LABS: Magnesium 2.1 mg/dL (1.6-2.6); Thyroid Stim Hormone (TSH) 0.37 uIU/mL (0.358-3.74)
[2018-09-16] MEDS: Atorvastatin Calcium 10 MG Tablet 5 MG PO (21:07)
[2018-09-16] MEDS: Latanoprost 0.005% 1 Bottle 1 DRP LEFT EYE (21:08)
[2018-09-16] MEDS: 0.9% NaCl Peripheral Flush Adult/Peds IV (21:09)
[2018-09-17] VITALS (27 sets, daily range): BP systolic 113–145; BP diastolic 58–90; PULSE 60–91; RESP 12–44; TEMP 36.3–36.6; O2SAT 92–99
[2018-09-17] MEDS: 0.9% NaCl Peripheral Flush Adult/Peds IV ×5 (05:35→21:32)
[2018-09-17] MEDS: LORazepam 2 MG/ML Syringe 0.5 MG IV (06:10)
[2018-09-17] MEDS: Ipratropium/Albuterol Sulfate 3 ML AMPUL.NEB INHALATION ×5 (07:09→22:56)
[2018-09-17] MEDS: Enoxaparin 80 MG/0.8 ML Syringe SC ×2 (09:08→21:32)
[2018-09-17] MEDS: dilTIAZem CD 120 MG Capsule PO (09:08)
[2018-09-17] MEDS: Aspirin 81 MG TAB.CHEW PO (09:09)
[2018-09-17] MEDS: amLODIPine 5 MG Tablet PO (09:09)
[2018-09-17] MEDS: Azithromycin 250 MG Tablet 500 MG PO (09:09)
[2018-09-17] MEDS: Lisinopril 20 MG Tablet PO ×2 (09:09→21:32)
--- NOTE | 2018-09-17 10:13 | CASEMGMT ---
PRADEEP noted patient has Passport services. PRADEEP called [facility] and his Allergist/Pediatric Pulmonologist is Alfredo Martin ([id number]). He has a medical alert button, he gets Mom's Meals, and he has [facility] 3 days a week. Yareli ZAPATA MSW
--- NOTE | 2018-09-17 10:52 | CASEMGMT ---
RN CM assessment: Face to Face with patient for initial transition planning/care coordination assessment. RN CM introduced self and role at [facility], pt voices understanding and consents to assessment at this time. Pt is sitting up in bed with slightly labored, rattled breathing at this time. Respiratory therapy did come to give pt a treatment when this RN CM was leaving room after assessment complete. Pt is A/Ox4 at this time and answers questions appropriately but keeps coughing and son prefers to answer questions for pt at this time. Care providers, pharmacy, and demographics verified at this time. PCP: Henry Specialists: Mayte, neuro; ermias Harris Preferred Pharmacy: [facility] Insurance: [facility] A/B, AARP, RONY Prescription Benefit: Yes Living Will/HPOA: Pt's son states that he has LW/HPOA and he thought that they were on file at [facility] at this time but is aware that they are not on file at this time, voices understanding. LNOK: Deanne Smalls, ; Orion Smalls, son Living Arrangements: Pt lives with in a home and son states no concerns at home at this time. Pt is normally independent with ADL's. Transportation: Pt's /son drive and states no transportation concerns at this time. DME/HHC: Pt has the following DME: cane, walker, medical alert, grab bars, tub bench and bipap thru [facility] Son states no need for any further DME and states that pt is active with [facility] for RN and [facility] for [facility] aide 3 days/week(MWF) from [id number]. Pt's passport CM is Krystal Martin and per Krystal, pt has moms meals and medical alert thru passport. Resumption of care order for HHC placed at this time and call to [facility] to notify of pt admission, voice understanding. Son states no hx of SNF in the past. Pt/son state no concerns with going home at time of discharge. Pt is retired. Pt does not currently smoke or drink ETOH. Pt/son voice no further questions/concerns/needs at this time. CM to follow for home oxygen and for any further discharge planning/needs. Advised pt to ask for CM if any further questions/concerns/needs arise, voices understanding. Pt Goal: Home Plan: Home, pending PT/OT evals and home oxygen testing. Shin ALEXANDER CM
--- NOTE | 2018-09-17 11:05 | PN_ITS ---
Patient Problems: Active and Suspected Problems (Last Updated 09/15/18 @ 20:05 by Kunal Rollins DO) Shortness of breath (Acute) Subjective: Patient seen and examined. Had episode of increased shortness of breath this morning and was placed on supplemental oxygen. Continues to have wheezing. Converted to sinus rhythm overnight. - Physical Exam General: Alert, Oriented x3, Cooperative HEENT: Atraumatic, PERRLA, EOMI, Normocephalic Neck: Supple, No JVD, Negative Carotid Bruits Lungs: Diminished, Wheezes Cardiovascular: Regular rate, Normal S1, Normal S2, No murmurs, - - Sinus arrhyt hmia Abdomen: Bowel Sounds Present, Soft, Non Tender, Non-Distended Extremities: No clubbing, No cyanosis, Capillary Refill Less than 3 Seconds, Edema - Nonpitting bilateral lower extremities Skin: No rashes, No breakdown Musculoskeletal: No Tenderness to Palpation of Joints or Extremities Neurological: Cranial nerves II-XII grossly intact, Neuro grossly intact Psych/Mental Status: Normal Affect, Appropriate Vital Signs Temp Pulse Resp BP Pulse Ox 97.5 F L 69 18 117/75 98 09/17/18 09:06 09/17/18 09:06 09/17/18 09:06 09/17/18 09:06 09/17/18 09:06 Oxygen Flow Rate (L/min) 3 Oxygen Delivery Method Bi-pap Weight: 184 lb 8.43 oz Body Mass Index (BMI) 25.7 Intake and Output for Last 24 Hours 09/15/18 09/16/18 09/17/18 23:59 23:59 23:59 Intake Total 1011 / 1011 120 / 120 Output Total 200 / 200 Balance 811 / 811 120 / 120 Microbiology Past 72 Hours 09/15/18 20:44 Respiratory Panel (PCR) - Final Mucosa - Nasopharyngeal Parainfluenza 3 Laboratory Tests Past 24 Hrs 09/16/18 09/16/18 09/16/18 10:18 13:02 16:14 Magnesium 2.1 Troponin I < 0.015 0.025 TSH 0.37 Medical Necessity - Tobacco Use Smoking Status: Former smoker Tobacco Use: Non-smoker Assessment/Plan All Active Problems (Last Updated 09/15/18 @ 20:05 by Kunal Rollins DO) Influenza A (Resolved) Shortness of breath (Acute) shunt revision (Resolved) Status post lung surgery (Resolved) Cataract extraction status (Resolved) Hx of colonoscopy (Resolved) Thrush, oral (Resolved) COPD with acute exacerbation (Acute) 1. Acute hypoxic respiratory failure secondary to COPD/eosinophilic asthma exacerbation secondary to parainfluenza 3-chest x-ray on admission without acute process. Respiratory panel positive for parainfluenza 3. Patient follows with Dr. Harris. Continue IV Solu-Medrol. DC oral azithromycin.. Albuterol and DuoNeb aerosols. Walking pulse ox prior to discharge. Initially requiring BiPAP, now stable on minimal amount of oxygen. Continue supplement oxygen to maintain O2 at or above 90%, wean as tolerated. 2. New onset atrial fibrillation-no prior history. No known CAD. TSH, mag within normal limits. Troponin negative. Trend enzymes. Patient received oral Cardizem x1 yesterday and converted to sinus rhythm overnight. Echocardiogram pending. Do not feel oral anticoagulation is necessary at this time given patient converted and A. fib likely secondary to #1. 3. Hypertension-stable, continue amlodipine, lisinopril regimen. 4. Hyperlipidemia-continue statin. 5. ANNEL-continue BiPAP nightly. DVT prophylaxis-Lovenox subcu This patient was seen by MARLA Melendez under the supervision of Dr. Rollins.
--- NOTE | 2018-09-17 11:14 | CPS ---
PT PLACED BACK ON BIPAP POST AEROSOL FOR INCREASED WORK OF BREATHING AND AUDIBLE WHEEZING
--- NOTE | 2018-09-17 14:58 | CHAPLAIN ---
Type of Pastoral Visit _x__ Initial Visit ___ Follow-up Visit ___ On-call Visit ___ General Patient Visit ___ Spiritual Assessment ___ Family Conference ___ Bereavement ___ Rapid Response ___ Code Blue ___ Other (describe below) Pastoral Care Referral From _x__ Patient ___ Family ___ Nurse ___ Physician ___ Emergency Medical Technician ___ Packaging Line Attendant ___ Other (describe below) Sacrament/Intervention _x__ Active listening ___ Anointing ___ Yazdanism ___ Bereavement ___ Communion ___ Kanika exploration ___ _x__ Life review _x__ Prayer ___ Reconciliation ___ Sacrament of Sick _x__ Supportive presence ___ Wedding ___ Other (describe below) Pastoral Comments son is with patient
[2018-09-17] MEDS: Latanoprost 0.005% 1 Bottle 1 DRP LEFT EYE (21:32)
[2018-09-17] MEDS: Atorvastatin Calcium 10 MG Tablet 5 MG PO (21:32)
[2018-09-18] VITALS (16 sets, daily range): BP systolic 101–126; BP diastolic 58–70; PULSE 61–88; RESP 12–25; TEMP 36.4–36.8; O2SAT 88–98
[2018-09-18] MEDS: 0.9% NaCl Peripheral Flush Adult/Peds IV (05:28)
[2018-09-18] MEDS: Ipratropium/Albuterol Sulfate 3 ML AMPUL.NEB INHALATION ×3 (07:22→14:51)
[2018-09-18] MEDS: Aspirin 81 MG TAB.CHEW PO (09:31)
[2018-09-18] MEDS: dilTIAZem CD 120 MG Capsule PO (09:32)
[2018-09-18] MEDS: Enoxaparin 80 MG/0.8 ML Syringe SC (09:33)
[2018-09-18] MEDS: amLODIPine 5 MG Tablet PO (09:34)
[2018-09-18] MEDS: Lisinopril 20 MG Tablet PO (09:35)
--- NOTE | 2018-09-18 11:08 | CASEMGMT ---
Patient has a Healthcare POA and Healthcare LW. Patient and son are aware they are not on file. Yareli ZAPATA ASSESSMENT ANALYST
--- NOTE | 2018-09-18 11:39 | DCINST_ITS ---
- Discharge Diagnoses Current Active Problems: Current Active and Chronic Problems (Last Updated 09/15/18 @ 20:05 by Kunal Rollins DO) Shortness of breath (Acute) You will use the following diet at home:: No restrictions Your food should be the consistency of: Regular Your liquids should be the consistency of: Regular/Thin Discharge Activity: Return to Normal Activity Weight Bearing Status: Full weight bearing Allergies/Adverse Reactions: Allergies tetracycline Allergy (Severe, Verified 09/15/18 18:25) Unknown levofloxacin [From Levaquin] Allergy (Verified 09/15/18 18:25) Pain in joints Medications to take at Discharge Amlodipine [Norvasc] 5 mg PO DAILY 07/28/18 Aspirin [Aspirin, Baby] 81 mg PO DAILY@0800 07/28/18 Atorvastatin Calcium [Lipitor] 5 mg PO QHS 07/28/18 Fluticasone 220 Mcg [Flovent 220 Mcg] 2 puff INHALATION BID 07/28/18 Lisinopril [Zestril] 20 mg PO BID 07/28/18 Mepolizumab [Nucala] 100 mg SQ QMONTH 07/28/18 Travoprost [Travatan Z] 1 drp LEFT EYE QHS 07/28/18 ipratropium-albuterol 0.5 mg-3 mg(2.5 mg base)/3 mL nebulization soln 3 ml INHALATION Q4H PRN PRN #180 ml 08/10/18 albuterol sulfate HFA 90 mcg/actuation aerosol inhaler 1 - 2 puff INHALATION Q4H PRN PRN #18 g 08/15/18 Diltiazem CD [Cardizem CD] 120 mg PO DAILY #30 cap 09/18/18 Prednisone 10 mg PO UD #30 tab 09/18/18 The following prescriptions were given: Diltiazem CD [Cardizem CD] 120 mg PO DAILY #30 cap Prednisone 10 mg PO UD #30 tab Primary Care Physician: Kunal Figueroa MD [Primary Care Provider] - Please follow up with your Primary Care Physician in: in one week Test Results: Test results from this visit will be discussed in further detail at your follow- up appointment, if applicable.
--- NOTE | 2018-09-18 13:51 | CASEMGMT ---
Addendum entered by Natali Garcia 09/18/18 15:48: This RN CM received a message from Natali at [facility] requesting F2F and pt discharge date, which had both already been provided to [facility]. Call back to Natali and message left with same info again at this time. Shin ALEXANDER CM Original Note: Addendum entered by Natali Garcia 09/18/18 14:16: F2F faxed to [facility] at this time. Shin ALEXANDER CM Original Note: Addendum entered by Natali Garcia 09/18/18 14:03: Call to [facility] to notify of referral and to see if they have any other tubing than clear as pt has impaired vision. [facility] voices understanding of all and states that they do have green tubing also and this RN CM advised her that that would probably be better for pt at this time, voices understanding. This RN CM will fax F2F once obtained. Shin ALEXANDER CM Original Note: Per Jaz ALEXANDER, pt does qualify for home oxygen at this time and son states that they would like to stay with [facility] as pt already has bipap/cpap set up through them. Referral for home oxygen faxed to [facility] at this time. Therapy is recommending OT to be added to pt's HHC at this time and resumption of care order placed with addition of OT at this time. Call to Heidi at [facility] to notify of discharge today and that OT added to order, voices understanding. Pt/son updated on all, voice understanding at this time. Pt/son voice no further questions/concerns/needs at this time. Shin ALEXANDER CM
--- NOTE | 2018-09-18 14:06 | PCM.DC.SUM ---
Discharge Date and Diagnosis Date of Admission: 09/15/18 Date of Discharge: 09/18/18 - Primary Discharge Diagnosis Active and Suspected Problems (Last Updated 09/15/18 @ 20:05 by Kunal Rollins DO) 1. Acute hypoxic respiratory failure secondary to COPD/eosinophilic asthma exacerbation secondary to parainfluenza 3 2. New onset atrial fibrillation 3. Hypertension 4. Hyperlipidemia 5. 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 Calcified plaques of the aortic arch. No acute cardiopulmonary disease process is seen. Electronically Signed: Davon Adams MD at 19:35 EDT , Service support , Operations: None Procedures: 2-D Echocardiogram Summary of Care Provided: The patient is a 78 year old M admitted 09/15/2017 due to shortness of breath. 1. Acute hypoxic respiratory failure secondary to COPD/eosinophilic asthma exacerbation secondary to parainfluenza 3-chest x-ray on admission without acute process. Respiratory panel positive for parainfluenza 3. Patient follows with Dr. Harris. MICHEAL Dykes during admission. Transition to prednisone taper at discharge. Oral azithromycin discontinued. Continue home albuterol inhaler/nebulizer. Initially requiring BiPAP, now stable on 2 L nasal cannula. Continue supplement oxygen to maintain O2 at or above 90%, wean as tolerated. Walking pulse ox completed and patient's oxygen 88% on room air with ambulation. 95% ambulating with 2 L nasal cannula. Patient is ambulatory in the home. Patient be discharged with supplemental oxygen at discharge. Follow-up with primary care provider in 1 week. 2. New onset atrial fibrillation-no prior history. No known CAD. TSH, mag within normal limits. Troponin negative. Patient initiated on Cardizem CD 120 mg daily. Do not feel oral anticoagulation is necessary at this time given patient converted and A. fib likely secondary to #1. Echocardiogram showed an EF of 60%, stage I diastolic dysfunction. 3. Hypertension-stable, continue amlodipine, lisinopril regimen. 4. Hyperlipidemia-continue statin. 5. ANNEL-continue BiPAP nightly. General: Alert, Oriented x3, Cooperative HEENT: Atraumatic, PERRLA, EOMI, Normocephalic Neck: Supple, No JVD, Negative Carotid Bruits Lungs: Diminished, Wheezes Cardiovascular: Regular rate, Normal S1, Normal S2, No murmurs, Sinus arrhythmia Abdomen: Bowel Sounds Present, Soft, Non Tender, Non-Distended Extremities: No clubbing, No cyanosis, Capillary Refill Less than 3 Seconds, Edema - Nonpitting bilateral lower extremities Skin: No rashes, No breakdown Musculoskeletal: No Tenderness to Palpation of Joints or Extremities Neurological: Cranial nerves II-XII grossly intact, Neuro grossly intact Psych/Mental Status: Normal Affect, Appropriate Patient seen and examined prior to discharge. Physical assessment as noted above. Patient is stable for discharge with follow up recommendations as noted above. This patient was seen by MARLA Melendez under the supervision of Dr. Rollins. - Physical Exam Vital Signs Temp Pulse Resp BP Pulse Ox 98.3 F 88 24 H 101/67 96 09/18/18 13:46 09/18/18 13:46 09/18/18 13:46 09/18/18 13:46 09/18/18 13:46 Oxygen Flow Rate (L/min) [ 2 AMBULATION with Oxygen] Oxygen Flow Rate (L/min) 2 Oxygen Delivery Method Nasal Cannula Weight: 184 lb 8.43 oz Body Mass Index (BMI) 25.7 Intake and Output for Last 24 Hours 09/16/18 09/17/18 09/18/18 23:59 23:59 23:59 Intake Total 1011 / 1011 660 / 660 300 / 300 Output Total 200 / 200 Balance 811 / 811 660 / 660 300 / 300 Microbiology Past 72 Hours 09/15/18 19:00 Blood Culture - Preliminary Blood Culture (Wb) #2 - Left Hand No growth in 48 hours. 09/15/18 18:55 Blood Culture - Preliminary Blood Culture (Wb) - Right Forearm No growth in 48 hours. 09/15/18 20:44 Respiratory Panel (PCR) - Final Mucosa - Nasopharyngeal Parainfluenza 3 Discharge Diet: No Restrictions Discharge Activity: Return to Normal Activity Weight Bearing Status: Full weight bearing Home Medications: Medications to take at Discharge Amlodipine [Norvasc] 5 mg PO DAILY 07/28/18 Aspirin [Aspirin, Baby] 81 mg PO DAILY@0800 07/28/18 Atorvastatin Calcium [Lipitor] 5 mg PO QHS 07/28/18 Fluticasone 220 Mcg [Flovent 220 Mcg] 2 puff INHALATION BID 07/28/18 Lisinopril [Zestril] 20 mg PO BID 07/28/18 Mepolizumab [Nucala] 100 mg SQ QMONTH 07/28/18 Travoprost [Travatan Z] 1 drp LEFT EYE QHS 07/28/18 ipratropium-albuterol 0.5 mg-3 mg(2.5 mg base)/3 mL nebulization soln 3 ml INHALATION Q4H PRN PRN #180 ml 08/10/18 albuterol sulfate HFA 90 mcg/actuation aerosol inhaler 1 - 2 puff INHALATION Q4H PRN PRN #18 g 08/15/18 Diltiazem CD [Cardizem CD] 120 mg PO DAILY #30 cap 09/18/18 Prednisone 10 mg PO UD #30 tab 09/18/18 Following Prescrptions Were Given to Patient: Diltiazem CD [Cardizem CD] 120 mg PO DAILY #30 cap Prednisone 10 mg PO UD #30 tab Primary Care Physician: Kunal Figueroa MD [Primary Care Provider] - Please follow up with your Primary Care Physician in: in one week Please Follow Up With: Kunal Figueroa MD Disposition: Home with Home Health Minutes spent on discharge:: 35 Patient Condition:: Stable Medical Necessity - Tobacco Use Smoking Status: Former smoker Tobacco Use: Non-smoker Meaningful Use Info Meaningful Use Diagnoses (Choose all that apply): None applicable
--- NOTE | 2018-09-18 14:12 | CASEMGMT ---
PRADEEP called [facility] and spoke with Rich Galvan on the coverage line letting him know patient is being discharged today. PRADEEP faxed d/c instructions to [facility]. Yareli ZAPATA MSW
--- NOTE | 2018-09-19 12:33 | CASEMGMT ---
BENJAMIN NORTH DC PHONE CALL DC DATE: 18/08 DC Disposition: LACE/STRATA: Call to pt's home, spoke with son who was at the home. Son said Home Health nurse did not get discharge information for pt. BENJAMIN NORTH let son know that per our notes, [facility] was notified of dc, but B[facility]JAMIN NORTH will call and refax information if needed. No other questions re: instructions or prescriptions. Son states pt is doing well. -Call to [facility]. Per Lorena Gordon is providing skilled care. Information on dc was received @ [facility] and they faxed clinical to [facility]. BENJAMIN NORTH called to [facility] @ and they have received information and will be setting up to see pt either or Monday. Per their staff, they will call family and update on upcoming visit. Selina HOWARD RN [facility]
== END 2018-09-18 18:21 | disposition home or self-care (01) | DRG 196 ==
LOC: ED 18:43 → PCU 20:11
PROVIDERS: Internal Medicine; Nurse Practitioner Family; Admitting Provider Internal Medicine; Emergency Provider Emergency Medicine; Family Provider Family Medicine; PCP Family Medicine; Referring Provider Internal Medicine; Visit Provider Internal Medicine
DX: J82 Pulmonary eosinophilia, not elsewhere classified (principal); J96.01 Acute respiratory failure with hypoxia; J44.1 Chronic obstructive pulmonary disease with (acute) exacerbation; B34.8 Other viral infections of unspecified site; E78.5 Hyperlipidemia, unspecified; G47.33 Obstructive sleep apnea (adult) (pediatric); I10 Essential (primary) hypertension; I48.91 Unspecified atrial fibrillation; H40.9 Unspecified glaucoma; Z87.891 Personal history of nicotine dependence
CPT/HCPCS: 36415; 36600; 71045; 80048; 82803; 83605; 83735; 83880; 84443; 84484; 85025; 87040; 87633; 92526; 92610; 93005; 93306; 94002; 94003; 94640; 94660; 97161; 97166; 99251; 99284; J7030; Q9957; A4216; G0463; J2405

== ENCOUNTER → 2018-10-10 13:00 | Outpatient (REF) | payer SELFPAY ==
[2019-02-22 10:34] VITALS: BMI 26.0
== END ==
LOC: RAD 13:00
PROVIDERS: Family Provider Family Medicine; PCP Family Medicine; Referring Provider Nurse Practitioner Family; Visit Provider Nurse Practitioner Family
DX: R05 Cough (principal)
CPT/HCPCS: 74230; 92611

== ENCOUNTER → 2018-10-10 13:02 | Outpatient (CLI) | payer MEDICARE, OTHER, MEDICAID, SELFPAY ==
[2018-09-20 11:15] VITALS: BMI 26.6
[2018-10-05 09:15] VITALS: BMI 26.4
--- NOTE | 2018-10-10 13:00 | SP.MBSS_ITS ---
PRIMARY / SECONDARY DIAGNOSIS: dysphagia (R13.10) REFERRING PHYSICIAN: Benji Lovelace CNP CURRENT DIET: regular textures, thin liquids DENTITION: natural; suboptimal repair MENTAL STATUS: impaired; sufficient for participation RESPIRATORY STATUS: O2 via room air REASON FOR REFERRAL: The Patient is a 78 year old male referred for a modified barium swallow (MBS) study to objectively assess the Patients oropharyngeal swallow function under fluoroscopy following recent hospitalization (09/15/2018 to 09/18/2018) due to acute hypoxic respiratory failure secondary to parainfluenza and asthma exacerbation, with follow up assessment recommended at discharge. MEDICAL HISTORY: Chronic obstructive pulmonary disease (stage III GOLD classification), prior cerebrovascular accident involving the left basal ganglia with extension to the body of the caudate nucleus (2015), respiratory failure with hypoxia, severe persistent asthma, dyspnea, wheezing, chronic cough, status post lung surgery, atrial fibrillation, premature ventricular complex, hypertension, hyperlipidemia, sleep apnea, alpha 1, glaucoma, status post cataract extraction. PREVIOUS MODIFIED BARIUM SWALLOW STUDY: 02/15/2016 MBS revealed moderate oropharyngeal dysphagia (SPS:5) with SILENT aspiration of thin liquids. ADDITIONAL OBJECTIVE ASSESSMENT RESULTS: 09/15/2018 CXR revealed degenerative changes of the thoracic spine; calcified plaques of the aortic arch; no acute cardiopulmonary disease process. 02/02/2016 MRI revealed an acute ischemic lacunar infarct involving left basal ganglia with extension to the body of the caudate nucleus. ASSESSMENT PARAMETERS: The Patient participated in a Modified Barium Swallow (MBS) study on 10/10/2018. Dr. Herring was the radiologist present for this evaluation. This study was recorded in the lateral view and images were sent to PACs for storage. Scoring was completed through each trial using the 8-point Penetration-Aspiration Scale (PAS) and Videofluoroscopic Scale Score (VSS), and summarized via the Modified Barium Swallow Impairment Profile (MBSImP) and the Bolus Residue Scale (BRS), with severity scoring through the Dysphagia Severity Rating Scale (DSRS) and Swallowing Performance Scale (SPS), and recommended diet textures through the International Dysphagia Diet Standardisation Initiative (IDDSI). RESULTS OF THE EVALUATION: The Patient presents with moderate oropharyngeal dysphagia (DSRS: AAA; SPS: AAA) with grade III SILENT aspiration of thin liquids secondary to a combination of chronic obstructive pulmonary disease (stage III GOLD classification), a prior cerebrovascular accident involving the left basal ganglia, and secondary presbyphagia. OBJECTIVE ASSESSMENT OF SWALLOW FUNCTION (QUANTITATIVE ? PER TRIAL): PENETRATION / ASPIRATION SCALE (ESCALANTE): 1 = does not enter airway 2 = enters airway/above vocal folds/ejected 3 = enters airway/above vocal folds/not ejected 4 = enters airway/contacts vocal folds/ejected 5 = enters airway/contacts vocal folds/not ejected 6 = enters airway/below vocal folds/ejected 7 = enters airway/below vocal folds/not ejected despite effort 8 = enters airway/below vocal folds/no effort VIDEOFLOROSCOPIC SCALE SCORE (ESCALANTE): Grade I = aspiration of material that has penetrated into the laryngeal vestibule, intact cough reflex Grade II = aspiration < 10 % of the bolus, intact cough reflex Grade III = aspiration of < 10 % of the bolus, reduced cough reflex or aspiration of > 10 % of the bolus, intact cough reflex Grade IV = aspiration of > 10 % of the bolus, reduced cough reflex PENETRATION / ASPIRATION SCALE (SCORE) WITH VIDEOFLOROSCOPIC SCALE SCORE: Thin liquid - 5 mL tsp.: 8 ? Grade III Thin liquids via cup (single sip): 5 Thin liquids via cup (single sip): 8 ? Grade III Thin liquids via cup (single sip): 8* ? Grade III Thin liquids via cup (sequential swallows): 3 Cabot thickened liquids via cup (single sip): 3 Cabot thickened liquids via cup (single sip): 2 Cabot thickened liquids via cup (single sip): 3 Cabot thickened liquids via cup (single sip): 2 Cabot thickened liquids via cup (chin tuck): 1 Cabot thickened liquids via cup (chin tuck): 1 Pudding via spoon: 1 Regular textured cookie: 1 Thin liquids via cup (chin tuck): 5 * denotes questionable progression OBJECTIVE ASSESSMENT OF SWALLOW FUNCTION (QUANTITATIVE ? AGGREGATE): MODIFIED BARIUM SWALLOW IMPAIRMENT PROFILE (MBSImP) LABIAL SEAL: 0 (of 4) no labial escape TONGUE CONTROL: 0 (of 3) cohesive bolus BOLUS PREPARATION / MASTICATION: 1 (of 3) slow prolonged; complete recollection BOLUS TRANSPORT / LINGUAL MOTION: 1 (of 4) delayed initiation of motion ORAL RESIDUE: 2 (of 4) residue collection on oral structures INITIATION OF PHARYNGEAL SWALLOW: 2 (of 4) posterior surface of epiglottis SOFT PALATE ELEVATION: 0 (of 4) no bolus between soft palate & pharyngeal wall LARYNGEAL ELEVATION: 1 (of 3) partial superior movement / approximation ANTERIOR HYOID EXCURSION: 1 (of 2) partial movement EPIGLOTTIC MOVEMENT: 0 (of 2) complete inversion LARYNGEAL VESTIBULE CLOSURE: 1 (of 2) incomplete closure PHARYNGEAL STRIPPING WAVE: 0 (of 2) present / complete PE SEGMENT OPENIN (of 3) partial distension / duration / obstruction TONGUE BASE RETRACTION: 2 (of 4) narrow column of contrast PHARYNGEAL RESIDUE: 2 (of 4) collection of residue ESOPHAGEAL BOLUS CLEARANCE: 0 (of 4) complete clearance; esophageal coating ORAL TOTAL SUM: 6 / (prior: 10) PHARYNGEAL TOTAL SUM: 8 / 29 (prior: 2) ESOPHAGEAL TOTAL SUM: 0 / 4 (no change) OVERALL IMPRESSION (OI) SCORE: 14 / 55 (prior: 12) BOLUS RESIDUE SCALE (BRS): 2 (of 6) residue in valleculae DYSPHAGIA SEVERITY RATING SCALE (DSRS): 4 (moderate) SWALLOWING PERFORMANCE SCALE (SPS): 5 (moderate) OBJECTIVE ASSESSMENT OF SWALLOW FUNCTION (QUALITATIVE): ORAL PREPARATORY PHASE: mild (albeit effective) mastication inefficiency with prolonged mastication; sufficient anterior oral containment; preserved management of breathing / bolus formation. ORAL TRANSITIONAL PHASE: inconsistent bolus manipulation / transportation with oral phase swallow onset delay (2-3 seconds in length) with solid textures (otherwise appears sufficient); suboptimal oral clearance without side specific consolidation; no presence of premature posterior bolus loss. PHARYNGEAL PHASE: mild pharyngeal phase dyssynchrony combining with mild reduction in hyolaryngeal excursion resulting in penetration of thin and nectar thickened liquids with eventual aspiration of thin liquids; inconsistent laryngeal vestibule pressure generated to expel penetrated material; no signs of pharyngeal dysmotility; no signs of velopharyngeal impairments; ESOPHAGEAL PHASE: no obvious esophageal phase abnormalities observed. CONTRIBUTING / COMPLICATING FACTORS AND NOTABLE FINDINGS: absent cough in response to tracheobronchial aspiration (atussia); metal buckle from overalls somewhat complicating view of the subglottic area sufficiently adjusted after the initial trial; strategy integration likely to be complicated by impaired cognitive functioning status post cerebrovascular accident. RESPONSE TO STRATEGIES: all deficits managed successfully with diet texture / viscosity adjustments, and execution of the chin tuck posture. RECOMMENDATIONS AND CONSIDERATIONS: The Patient was noted to SILENTLY aspirate with thin liquids, with clinical assessment at bedside relying on identification of classic overt signs and symptoms of aspiration considered unreliable. All penetration identified were scant in nature, with very minimal amounts of contrast identified (approximately < 5% of bolus). Would strongly discourage clinical advancement past nectar thickened liquids without completion of a repeat modified barium swallow study due to the extent of aspirate identified that was SILENT in nature. Recommend a repeat modified barium swallow study within 4 - 6 weeks / months (if clinically appropriate) to further assess the presence and extent of silent and overt aspiration prior to advancement to a less restrictive diet. Would consider the Patient to be at a higher risk of aspiration related medical complications / aspiration pneumonia / aspiration related pulmonary syndrome secondary to advanced chronic obstructive pulmonary disease (GOLD stage III), prior cerebrovascular accident with residual effects, compromised cognition, presence of dysphagia with poor awareness in regards to the presence of dysphagia, presence of SILENT aspiration identified under fluoroscopy, suboptimal dentition with previously reported dependent for oral care, advanced age, lower functional status, and higher prevalence of comorbidities. Recommend continued careful monitoring of pulmonary functioning, temperature spikes, or abnormal fatigue if any overt signs and symptoms of aspiration are noted during PO intake ingestion. The Patent is at higher risk of oropharyngeal colonization with respiratory pathogens secondary to the Patient?s advanced age, poor oral hygiene, and persistent xerostomia; Aspiration of saliva contaminated with pathogens can lead to pulmonary infections, with creation, implementation, and adherence to an aggressive oral and dental care program is essential. Will recommend an aggressive oral care program that includes pre-rinse use prior to water intake; routine oral care / denture care in the a.m., prior to oral intake, after oral intake, and prior to bed via toothbrush / swab / rinse; use of oral moisturizers as needed to reduce impact of xerostomia; and frequent dental checkups. The Patient openly reports intentions for non-compliance with recommendations for nectar thickened liquids due to concerns with quality of life, with family aware of the Patients desires; however I would not consider this to be a precluding factor if he desires to advance with intervention. The Patient requires intensive skilled speech-language intervention targeting diet texture management and training / implementation of recommended compensatory strategies; training and implementation of recommended oropharyngeal strengthening exercises to facilitate improved oropharyngeal strength and coordination; training and implementation of a home oral care protocol to reduce the effects of xerostomia and improve / maintain the integrity of the oral mucosa reducing the risk of aspiration related pulmonary complications; would consider advancement with neuromuscular electrical stimulation (NMES) / VitalStim; training, implementation, and Patient / caregiver education regarding implementation of the [place] Free Water Protocol (FFWP); Patient and caregiver education regarding post stroke associated dysphagia; Patient and caregiver education regarding dysphagia associated with advanced chronic obstructive pulmonary disease (COPD); and Patient / caregiver training targeting meal preparation / thickened liquid preparation (as appropriate given stated intentions for non-compliance). Results and recommendations were discussed with the Patient and Patients family immediately following MBS completion, with all verbalizing understanding and agreement with all recommendations and education provided. Discussed factors impacting effects of aspiration, to include: the quantity of aspiration, the depth of aspiration (trachea or distal airways), and the physical properties of the aspirate. Discussed consequences of oropharyngeal dysphagia, to include pulmonary complications from tracheobronchial aspiration; inadequate oral intake because of dysphagia; reduced liquid intake resulting in dehydration; reduced caloric intake resulting in unintentional and potentially medically complicating loss of weight; and increased risk for mortality / . DIET TEXTURE RECOMMENDATIONS: Will recommend a regular ? soft textured (IDDSI: 6), nectar thickened liquid (IDDSI: 2) diet RECOMMENDED COMPENSATORY STRATEGIES: Distant supervision with assistance as needed, consider cutting tougher textures into bite sized pieces, chin tuck, reduced bolus volume / rate of ingestion, seated upright at 90 degrees during PO intake, medications one at a time with a liquid chaser. IMAGE COUNT: [id number] Matt Slater M.A., CCC-WARDROBE STYLIST MBSImP Certified, LSVT Certified [facility] Speech-Language Pathology Department [email or web address]
--- NOTE | 2018-10-10 13:06 | RAD_ITS ---
STUDY: SWALLOWING STUDY REASON FOR EXAM: Male, 78 years old. Dysphagia. TECHNIQUE: The examination was performed with Speech Pathology in attendance. Under fluoroscopic observation, the patient ingested thin barium, thick barium, barium pudding, and barium coated cracker. FLUOROSCOPY TIME: 2:35 minutes/seconds. [id number] spot images were obtained. RADIOLOGIST INVOLVEMENT: Radiologist was present and providing direct supervision. COMPARISON: Comparison is made with prior study dated February 15, 2016. FINDINGS: The following was observed during swallowing of the various mixtures of barium: Thin Barium: Silent aspiration with ingestion of thin liquids. Thick Barium: There was no evidence of aspiration or laryngeal penetration. Barium Pudding: There was no evidence of aspiration or laryngeal penetration. Barium Coated Cracker: There was no evidence of aspiration or laryngeal penetration. RAD/Swallowing Function w/Video IMPRESSION: Silent aspiration with ingestion of thin liquids. The swallow study findings were discussed with the patient by the speech pathologist at the conclusion of the examination. Please see speech pathology report for more information and recommendations. Electronically Signed: Crispin Herring, at 15:01 EDT , Service support ,
== END ==
PROVIDERS: Family Provider Family Medicine; PCP Family Medicine; Referring Provider Nurse Practitioner Family; Visit Provider Nurse Practitioner Family
DX: T17.900D Unspecified foreign body in respiratory tract, part unspecified causing asphyxiation, subsequent encounter (principal); X58.XXXD Exposure to other specified factors, subsequent encounter; Y93.9 Activity, unspecified; Y92.9 Unspecified place or not applicable; Y99.9 Unspecified external cause status; Z86.73 Personal history of transient ischemic attack (TIA), and cerebral infarction without residual deficits
CPT/HCPCS: 74230; 92611

== ENCOUNTER → 2019-03-21 08:58 | Outpatient (CLI) | payer MEDICARE, OTHER, MEDICAID, SELFPAY ==
[2019-02-22 10:34] VITALS: BMI 26.0
[2019-03-21 11:04] LABS: AST(SGOT) 14 U/L (15-37); Alanine Aminotransfer ALT/SGPT 14 U/L (16-61); Albumin, Serum 3.7 g/dL (3.2-5.0); Alkaline Phosphatase 63 U/L (45-117); Bilirubin, Direct 0.24 mg/dL (0.00-0.30); Cholesterol 108 mg/dL (200); Globulin 3.6 g/dL (2.2-4.2); High Density Lipoprotein 63 mg/dL; Protein, Total 7.3 g/dL (6.4-8.2); Triglycerides 30 mg/dL; Very Low Density Lipoprotein 6 mg/dL (5-40)
[2019-03-21 13:31] LABS: CPK Total, Creatine Kinase 42 U/L (39-308)
== END ==
PROVIDERS: Nurse Practitioner Family; Family Provider Family Medicine; PCP Family Medicine; Referring Provider Internal Medicine Cardiovascular Disease; Visit Provider Internal Medicine Cardiovascular Disease
DX: M62.81 Muscle weakness (generalized) (principal); E78.00 Pure hypercholesterolemia, unspecified; Z79.899 Other long term (current) drug therapy
CPT/HCPCS: 36415; 80061; 80076; 82550

== ENCOUNTER → 2019-04-11 13:00 | Outpatient (CLI) | payer MEDICARE, OTHER, MEDICAID, SELFPAY ==
[2019-03-21 10:51] VITALS: BMI 26.0
== END ==
PROVIDERS: Family Provider Family Medicine; PCP Family Medicine; Referring Provider Nurse Practitioner Family; Visit Provider Nurse Practitioner Family
DX: G47.33 Obstructive sleep apnea (adult) (pediatric) (principal)
CPT/HCPCS: 98960; G0463

== ENCOUNTER → 2019-04-19 06:48 | Outpatient (CLI) | payer MEDICARE, OTHER, MEDICAID, SELFPAY ==
[2018-11-21 08:10] VITALS: BMI 25.9
[2019-03-21 10:51] VITALS: BMI 26.0
--- NOTE | 2019-04-20 05:46 | PFTCOMP ---
COMPLETE PULMONARY FUNCTION TEST INTERPRETATION Brief HPI: Patient is a 78 year old male, currently under the care of myself, who presents to [facility] for complete pulmonary function tests secondary to diagnosis of dyspnea. Respiratory therapist reports good effort and reproducible results. Interpretation: Forced expiration spirometry shows a very severe large airways obstructive ventilatory defect with an FEV1 of 47% predicted. There is a significant bronchodilator response in FVC and FEV1 by strict ATS criteria. Spirograms are of good quality and plateau slowly, indicating slowly emptying areas of the lungs. The respiratory flow volume loop shows decreased expiratory flow rates at all lung volumes consistent with airway obstruction. Lung volumes by body plethysmography show an elevated total lung capacity at 8.74 L, 132% predicted. FRC and RV are elevated out of proportion. Lung volume measurements are consistent with hyperinflation and air-trapping. Diffusion capacity by carbon monoxide is normal at 77% predicted. The airway resistance is elevated. Compared to previous pulmonary function tests from 06/15/2018, there is been a significant worsening in FEV1, resulting in increased air trapping and hyperinflation. Impression: Partially reversible very severe large airways obstructive ventilatory defect resulting in air trapping and hyperinflation. There has been some worsening compared to June 2018.
== END ==
PROVIDERS: Family Provider Family Medicine; PCP Family Medicine; Referring Provider Internal Medicine Critical Care Medicine; Visit Provider Internal Medicine Critical Care Medicine
DX: J44.9 Chronic obstructive pulmonary disease, unspecified (principal); J45.50 Severe persistent asthma, uncomplicated
CPT/HCPCS: 94060; 94726; 94729

== ENCOUNTER → 2019-06-24 16:50 | Outpatient (CLI) | payer MEDICARE, OTHER, MEDICAID, SELFPAY ==
[2019-06-14 09:48] VITALS: BMI 26.2
--- NOTE | 2019-06-24 17:07 | MRI_ITS ---
STUDY: MRI BRAIN WITHOUT CONTRAST REASON FOR EXAM: Male, 78 years old. CVA -- no pain, not a good historian TECHNIQUE: Standardized multiplanar fat and water weighted pulse sequences were obtained. COMPARISON: 02/02/2016 FINDINGS: Normal size of the ventricles and extra-axial spaces for the patient''s age. There are a limited number of small white matter hyperintensities, distributed throughout the deep white matter tracts of the cerebral hemispheres, consistent with mild chronic white matter ischemic changes. Remote infarct in the left escalante radiata. Normal bilateral basal ganglia. Normal thalami. There is no extra-axial fluid accumulation. Normal flow voids within the major intracranial circulation suggesting patency by spin echo criteria. Normal sella turcica, pituitary gland, infundibular stalk, optic chiasm and hypothalamus. Normal tectal plate and pineal gland. Normal midbrain, drea and medulla. Normal cerebellum. Normal basal cisterns. Normal bilateral temporal bones. Normal bilateral internal auditory canals. 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 Left lens replacement. Bilateral ethmoid and maxillary sinus disease. Normal calvarium and skull base. Normal visualized soft tissue structures. Normal visualized upper cervical spine. MRI/Brain without Contrast IMPRESSION: No evidence of acute infarct or hemorrhage. Electronically Signed: Yaakov Alvarez MD at 0:52 EST Tel , Service support ,
== END ==
PROVIDERS: PCP Family Medicine; Referring Provider Nurse Practitioner Family; Visit Provider Nurse Practitioner Family
DX: R51 Headache (principal); Z86.73 Personal history of transient ischemic attack (TIA), and cerebral infarction without residual deficits
CPT/HCPCS: 70551

== ENCOUNTER → 2019-12-06 10:32 | Outpatient (CLI) | payer MEDICARE, OTHER, MEDICAID, SELFPAY ==
[2019-09-12 08:07] VITALS: BMI 26.2
[2019-12-06 10:56] LABS: Absolute Lymphocyte Count 1.94 X10^3/uL (0.83-4.51); Absolute Neutrophil Count 5.4 X10^3/uL (2.0-7.7); Basophil# 0.02 X10^3/uL; Basophil% 0.2 % (0-1); Eosinophil# 0.04 X10^3/uL; Eosinophils% 0.5 % (0-5); Hematocrit 39.4 % (40-54); Hemoglobin 12.7 g/dL (13.0-16.5); Lymphocyte # 1.94 X10^3/ul (4.0); Lymphocyte % 23.7 % (19-41); Mean Corp Hgb Conc 32.2 g/dL (32-36); Mean Corpuscular Hgb 29.6 pg (27.0-32.0); Mean Corpuscular Volume 91.8 fL (80-94); Mean Platelet Vol. 10.6 fl (6.2-12.0); Monocyte# 0.78 X10^3/uL; Monocyte% 9.5 % (0-10); NRBC Flagged by Analyzer 0 % (0-5); Neutrophil # 5.36 X10^3/uL (2.7-7.7); Neutrophil % 65.7 % (47-70); Platelet Count 223 K/mm3 (150-450); RBC Distribution Width CV 14.3 % (11.6-14.6); RBC Distribution Width SD 47.8 fl (35.1-43.9); Red Blood Count 4.29 M/mm3 (4.6-6.2); White Blood Count 8.2 K/mm3 (4.4-11.0)
[2019-12-06 11:32] LABS: ALB/GLOB Ratio 1.1 RATIO (0.9-2.4); AST(SGOT) 12 U/L (15-37); Alanine Aminotransfer ALT/SGPT 14 U/L (16-61); Albumin, Serum 3.5 g/dL (3.2-5.0); Alkaline Phosphatase 53 U/L (45-117); Anion Gap 3 (5-15); BUN 26 mg/dL (7-18); BUN/Creat Ratio 26.9 RATIO (10-20); Bilirubin, Direct 0.23 mg/dL (0.00-0.30); Calcium,Total 8.9 mg/dL (8.5-10.1); Chloride 107 mmol/L (98-107); Cholesterol 95 mg/dL (200); Creatinine, Serum 0.96 mg/dL (0.70-1.30); EST Glomerular Filtration Rate 80 mL/min (>60); Est Glom Filt Rate - Afr Amer 96 mL/min (>60); Globulin 3.3 g/dL (2.2-4.2); Glucose 89 mg/dL (74-106); High Density Lipoprotein 58 mg/dL; Potassium 3.6 mmol/L (3.5-5.1); Protein, Total 6.8 g/dL (6.4-8.2); Sodium Level 141 mmol/L (136-145); Triglycerides 53 mg/dL; Very Low Density Lipoprotein 11 mg/dL (5-40)
== END ==
PROVIDERS: Internal Medicine Cardiovascular Disease; Internal Medicine Critical Care Medicine; PCP Family Medicine; Visit Provider Family Medicine
DX: I10 Essential (primary) hypertension (principal); J43.1 Panlobular emphysema; E78.2 Mixed hyperlipidemia
CPT/HCPCS: 80053; 80061; 82248; 85025

== ENCOUNTER → 2021-02-05 16:23 | Outpatient (CLI) | payer MEDICARE, OTHER, MEDICAID, SELFPAY ==
[2021-02-05 18:17] LABS: AST(SGOT) 12 U/L (15-37); Alanine Aminotransfer ALT/SGPT 15 U/L (16-61); Albumin, Serum 3.2 g/dL (3.2-5.0); Alkaline Phosphatase 63 U/L (45-117); Bilirubin, Direct 0.16 mg/dL (0.00-0.30); Cholesterol 110 mg/dL (200); Globulin 3.8 g/dL (2.2-4.2); High Density Lipoprotein 64 mg/dL; Triglycerides 34 mg/dL; Very Low Density Lipoprotein 7 mg/dL (5-40)
== END ==
LOC: LABSPEC 16:27 → LAB 16:29
PROVIDERS: PCP Family Medicine; Referring Provider Internal Medicine Cardiovascular Disease; Visit Provider Internal Medicine Cardiovascular Disease
DX: E78.5 Hyperlipidemia, unspecified (principal)
CPT/HCPCS: 36415; 80061; 80076

== ENCOUNTER 2021-02-26 10:43 | Emergency (ER) | payer MEDICARE, OTHER, MEDICAID, SELFPAY ==
[2021-02-26 10:46] VITALS: BP 162/77; PULSE 57; PULSE 58; RESP 21; RESP 23; TEMP 36.7; O2SAT 95; BMI 23.9
--- NOTE | 2021-02-26 11:03 | EKG12_ITS ---
Test Reason : Blood Pressure : / mmHG Vent. Rate : 058 BPM Atrial Rate : 058 BPM P-R Int : 160 ms QRS Dur : 110 ms QT Int : 434 ms P-R-T Axes : 082 031 079 degrees QTc Int : 426 ms Sinus bradycardia Nonspecific T wave abnormality Abnormal ECG Confirmed by RAVI GOMEZ, ANITA ([id number]), film or videotape editor DONNA BERG ([id number]) on 03/02/2021 10:35:41 AM Referred By: MEME Confirmed By:ANITA RODRIGUES MD
--- NOTE | 2021-02-26 11:05 | EDS_ITS ---
HPI History of Present Illness Chief Complaint: Dizziness Informant: patient and family Onset/Context/Timing Onset: Weeks (3) Context: Sudden Onset (today started while eating breakfast) Timing: Intermittent Quality: dizzy Current Severity: Gone Maximum Severity: Moderate Associated Symptoms Associated Symptoms: nausea this AM w/ spinning Narrative Narrative: Patient with significant Alzheimer's dementia has been having intermittent dizziness for the past 3 weeks, more often in the mornings less often later in the day. Had some blood pressure medications changed recently, he was taken off of amlodipine and placed on diltiazem. Shortly after that occurred at the beginning of this month, patient had a couple of falls and was feeling dizzy. He has appeared to be off balance at times, and also has been complaining of hearing disturbance intermittently in the right ear. Son has been methodically checking his blood pressure throughout all of this, it is basically been between 110 and 140s systolic the majority of all these times and there has been no constant correlation with symptoms and the numbers. There have been no adjustments since then. He has a history of paroxysmal atrial fibrillation but since he has dementia and falls on occasion he is not anticoagulated and is just on a baby aspirin. He did have a stroke several years ago, he has no chronic residual symptoms from that. No recent head injuries. 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 No major changes recently. No fevers or other illness. This morning when he had the episode after getting up and eating breakfast at the time of symptom onset, he said it felt like things were spinning and he got nauseated but did not vomit. Patient denies headache and states he does not feel the dizziness right now and feels fine. [facility] Medical History alpha 1 Atrial fibrillation with rapid ventricular response (09/2018) Benign neoplasm of colon COPD with acute exacerbation Dementia Diverticulosis Essential hypertension Glaucoma History of fracture of right hip History of GI bleed History of stroke (02/02/16) Hyperlipidemia ANNEL (obstructive sleep apnea) Paroxysmal atrial fibrillation Premature ventricular complex Respiratory failure with hypoxia Severe persistent asthma Sleep apnea Stage 3 severe COPD by GOLD classification Thrush, oral Home Medications aspirin 81 mg PO DAILY@0800 07/28/18 [History Last Taken 07/28/18 08:00] atorvastatin 5 mg PO QHS 07/28/18 [History Last Taken 07/27/18 19:00] travoprost 1 drp LEFT EYE QHS 07/28/18 [History Last Taken 07/27/18] coenzyme Q10 10 mg capsule 10 mg PO DAILY cap 10/02/18 [History Last Taken Unknown] omega-3 fatty acids 1,000 mg capsule 1,000 mg PO DAILY 10/02/18 [History Last Taken Unknown] lisinopril 10 mg tablet 10 mg PO BID tab 02/22/19 [History Last Taken Unknown] mepolizumab 100 mg subcutaneous solution 100 mg SC QMONTH #1 ea 03/21/19 [Rx Last Taken Unknown] spacer #1 ea 10/22/19 [Rx Last Taken Unknown] aflibercept 2 mg/0.05 mL intravitreal syringe 2 mg INTRAVITREAL ONCE 11/11/20 [History Last Taken Unknown] albuterol sulfate 90 mcg/actuation aerosol inhaler 2 puff INHALATION Q4H PRN #18 g 12/29/20 [Rx Last Taken Unknown] fluticasone propionate 220 mcg/actuation HFA aerosol inhaler 1 puff INHALATION BID g 02/05/21 [History Last Taken Unknown] ipratropium 0.5 mg-albuterol 3 mg (2.5 mg base)/3 mL nebulization soln 3 ml INHALATION Q4H PRN PRN #180 ml 02/23/21 [Rx Last Taken Unknown] amlodipine 5 mg tablet 5 mg PO DAILY 02/26/21 [History Last Taken Unknown] diltiazem HCl 120 mg capsule,24 hr,extended release 120 mg PO DAILY 02/26/21 [History Last Taken Unknown] meclizine 25 mg PO Q8H PRN PRN #20 tab 02/26/21 [Rx Last Taken Unknown] Allergy/AdvReac Type Severity Reaction Status Date / Time latanoprost AdvReac Severe Burning in Verified 02/26/21 10:58 eyes tetracycline AdvReac Severe Hallucinations, Verified 02/26/21 10:58 mental status change levofloxacin [From Levaquin] AdvReac Intermediate Pain in Verified 02/26/21 10:58 joints bimatoprost [From Lumigan] AdvReac NEEDS Verified 02/26/21 10:58 FOLLOW-UP loratadine AdvReac epistaxis Verified 02/22/21 13:18 methylprednisolone AdvReac Other Verified 02/26/21 10:58 [From Solu-Medrol] montelukast AdvReac epistaxis Verified 02/22/21 13:18 seasonal allergies Allergy Intermediate Upper Uncoded 02/22/21 13:18 respiratory symptoms/asthma flare Family History Brother Cancer lung Mother Heart disease Father Absolute glaucoma Surgical History Cataract extraction status H/O eye surgery (02/06/14) History of cataract removal with insertion of prosthetic lens (11/28/13) Hx of colonoscopy Status post lung surgery Social History Smoking Status: Former smoker how long ago did patient quit smokin years ago second hand exposure: Yes alcohol intake: never substance use type: does not use caffeine: Yes Type: coffee Number of servings: 2 ROS ROS ED Review of Systems ROS Unobtainable: other Details: limited due to dementia Constitutional Constitutional ED: Denies chills or fever(s) Eyes Eyes: Reports as per HPI; Denies change in vision or diplopia ENT ENT ED: Reports as per HPI and ear pain right Cardiovascular Cardiovascular: Denies chest pain or palpitations Respiratory/Chest Respiratory/Chest: Denies cough or dyspnea Gastrointestinal Gastrointestinal: Reports nausea; Denies abdominal pain, diarrhea or vomiting Musculoskeletal Musculoskeletal: Denies back pain or neck pain Integumentary Denies abscess or rash Neurologic Neurologic: Reports as per HPI, confusion, lack of coordination and vertigo; Denies headache(s), paresthesias or weakness EXAM Physical Exam Const Vital Signs: 02/26/21 10:46 02/26/21 11:07 02/26/21 11:43 Temperature 98.1 F Temperature Source Oral Pulse Rate 57 L Pulse Rate [Lying] 59 L Pulse Rate [Sitting] 74 Pulse Rate [Standing] 63 Respiratory Rate 23 H Respiratory Effort Normal Non-Labored Respiratory Pattern Normal Blood Pressure 162/77 H Blood Pressure [Lying] 139/67 H Blood Pressure [Sitting] 129/85 H Blood Pressure [Standing] 133/67 H Blood Pressure Mean 105 Blood Pressure Mean [Lying] 91 Blood Pressure Mean [Sitting] 99 Blood Pressure Mean [Standing] 89 Pulse Ox 95 Oxygen Delivery Method Room Air Positive well nourished and well developed General Appearance ED: well developed and NAD HEENT Reports TM's clear, TM's normal bilaterally and moist mucous membranes normocephalic and atraumatic Tympanic Membrane ED: Yes TM's clear Eyes PERRL and EOMs intact bilaterally Eyes Narrative: Fatigable horizontal nystagmus to the right when turning head to the right and lying down. No vertical or rotatory nystagmus. Neck full ROM and supple Resp normal respiratory effort and clear to auscultation bilaterally Cardio regular rate, regular rhythm and no murmurs GI non-tender and non-distended Auscultation: normoactive bowel sounds Palpation: soft Back/Spine no CVA tenderness General Back: other FROM Extremity normal to inspection General Extremety ED: Negative for edema, pulses abnormal or tenderness General Extremity: Negative for edema or pulses abnormal Neuro CN's II-XII intact bilaterally and no sensory deficits noted Neuro Narrative: At baseline mental status per son. Negative Troutman-Hallpike, however somewhat limited due to patient's limited ability to turn his head/neck. Normal [id number]-[id number] and pqli-[id number] bilaterally. Sensorium / Orientation: awake, alert and oriented to person Motor Exam: strength 5/5 throughout Skin no rashes or lesions noted and no wounds MDM MDM MDM Narrative Medical decision making narrative: Patient sounds like he is having vertigo episodes. It does not sound like his blood pressure is related to his symptoms nor causing them. However, we did do orthostatics just in case since his resting heart rate is in the 50s, they are essentially negative and the patient did not become symptomatic when he stood up per staff and son. He was treated with a dose of meclizine and had no recurrent symptoms of dizziness and on reevaluation states he feels fine. His initial blood pressure when arrived by EMS was 162 but without treating it specifically, his repeat now is 139/67. His head CT shows nothing acute, no signs of any acute infarcts, and his blood counts are all within normal limits, electrolytes are all normal. EKG shows sinus bradycardia at a rate of 58, he has no AV blockade or nonconducted beats. I feel he can be safely discharged home to continue his medications along with as needed meclizine. The son is concerned that he is following up with neurology and they want his pressure below 140, but he has readings over that sometimes, and cardiology is managing his blood pressure medications and the 2 have not talked. I agree that it would be valuable to have neurology and cardiology communicate with regards to managing his blood pressure medications. However, I reassured him that a single reading occasionally at the 160 level is not dangerous especially in context of his average being between 110-140 systolic, and without correlating with his symptoms I do not think they are related to his symptoms. I would continue his medications as prescribed for now and follow-up, he understands all that and also request a referral to ENT in case his vertigo persists which I think is reasonable. Lab Data Attestation: I reviewed the patient's lab results. Labs: Laboratory Results - last 24 hr 02/26/21 02/26/21 11:08 11:08 WBC 10.1 RBC 4.41 L Hgb 13.0 Hct 40.0 MCV 90.7 MCH 29.5 MCHC 32.5 RDW Std Deviation 50.4 H RDW Coeff of Renetta 15.0 H Plt Count 252 MPV 10.8 Immature Gran % (Auto) 0.300 Neut % (Auto) 78.9 H Lymph % (Auto) 13.8 L [place] % (Auto) 6.5 Eos % (Auto) 0.1 Baso % (Auto) 0.4 Absolute Neuts (auto) 7.9 H Absolute Lymphs (auto) 1.39 Nucleated RBC % 0 Sodium 141 Potassium 3.9 Chloride 106 Carbon Dioxide 31.0 Anion Gap 4 L BUN 17 Creatinine 0.94 Estim Creat Clear Calc 61.63 Est GFR (MDRD) Af Amer 99 Est GFR (MDRD) Non-Af 82 BUN/Creatinine Ratio 18.1 Glucose 124 H Calcium 9.4 Radiography Diagnostic Testing: Clinical Impression(s) from Imaging Studies Brain CT 02/26/21 11:42 IMPRESSION: No acute findings in the head/brain. Electronically Signed: Trent Smith MD ([place]) at 11:59 EDT , Service support , EKG Initial EKG: Attestation: I personally reviewed and interpreted this EKG as follows: Interpretation: No Acute Injury Pattern, Sinus Bradycardia and Non- Specific ST Changes (flattened T waves diffusely) Discharge Plan Triage Chief Complaint: Dizziness ED Provider: Thomas Joe Dx/Rx/DC Orders Clinical Impression: Episodic peripheral vertigo Instructions: ED Vertigo, Unspecified Prescriptions: New meclizine [meclizine] 25 MG tablet 25 mg PO Q8H PRN PRN (Reason: Dizziness) Qty: 20 RF: 0 No Action coenzyme Q10 [Co Q-10] 10 mg capsule 10 mg PO DAILY RF: 0 omega-3 fatty acids [Fish Oil Concentrate] 1,000 mg capsule 1,000 mg PO DAILY RF: 0 lisinopril 10 mg tablet 10 mg PO BID RF: 0 mepolizumab 100 mg recon soln 100 mg SC QMONTH Qty: 1 RF: 11 fluticasone propionate 220 mcg/actuation HFA aerosol inhaler 1 puff inhalation BID RF: 0 Eylea 2 mg/0.05 mL syringe 2 mg intravitreal ONCE RF: 0 ipratropium-albuterol 0.5 mg-3 mg(2.5 mg base)/3 mL solution for nebulization 3 ml inhalation Q4H PRN PRN (Reason: COUGH/WHEEZE) Qty: 180 RF: 6 atorvastatin 10 MG tablet 5 mg PO QHS RF: 0 travoprost 5 ML drops 1 drp LEFT EYE QHS RF: 0 aspirin 81 MG tablet,chewable 81 mg PO DAILY@0800 RF: 0 (DME) spacer See Rx Instructions .ROUTE .MEDSUPPLY Qty: 1 RF: 0 albuterol sulfate [Ventolin HFA] 90 mcg/actuation HFA aerosol inhaler 2 puff INHALATION Q4H PRN (Reason: shortness of breath or wheezing) Qty: 18 RF: 6 amlodipine [Norvasc] 5 mg tablet 5 mg PO DAILY RF: 0 diltiazem HCl 120 mg capsule,extended release 24 hr 120 mg PO DAILY RF: 0 Primary Care Provider: Kunal Figueroa Referrals: Calvin Jackson MD [STAFF PHYSICIAN] - Kunal Figueroa MD [Primary Care Provider] - Disposition Disposition: Home, Self Care
[2021-02-26] MEDS: Meclizine HCl 25 MG Tablet PO (11:10)
[2021-02-26 11:14] LABS: Absolute Lymphocyte Count 1.39 X10^3/uL (0.83-4.51); Absolute Neutrophil Count 7.9 X10^3/uL (2.0-7.7); Basophil# 0.04 X10^3/uL; Basophil% 0.4 % (0-1); Eosinophil# 0.01 X10^3/uL; Eosinophils% 0.1 % (0-5); Lymphocyte # 1.39 X10^3/ul (0.83-4.51); Lymphocyte % 13.8 % (19-41); Mean Corp Hgb Conc 32.5 g/dL (32-36); Mean Corpuscular Hgb 29.5 pg (27.0-32.0); Mean Corpuscular Volume 90.7 fL (80-94); Mean Platelet Vol. 10.8 fl (6.2-12.0); Monocyte# 0.65 X10^3/uL; Monocyte% 6.5 % (0-10); NRBC Flagged by Analyzer 0 % (0-5); Neutrophil # 7.93 X10^3/uL (2.7-7.7); Neutrophil % 78.9 % (47-70); Platelet Count 252 K/mm3 (150-450); RBC Distribution Width SD 50.4 fl (35.1-43.9); Red Blood Count 4.41 M/mm3 (4.6-6.2); White Blood Count 10.1 K/mm3 (4.4-11.0)
[2021-02-26 11:28] LABS: Anion Gap 4 (5-15); BUN 17 mg/dL (7-18); BUN/Creat Ratio 18.1 RATIO (10-20); Calcium,Total 9.4 mg/dL (8.5-10.1); Chloride 106 mmol/L (98-107); Creatinine, Serum 0.94 mg/dL (0.70-1.30); EST Glomerular Filtration Rate 82 mL/min (>60); Est Glom Filt Rate - Afr Amer 99 mL/min (>60); Estimated Creatinine Clearance 61.63 ml/min; Glucose 124 mg/dL (74-106); Potassium 3.9 mmol/L (3.5-5.1); Sodium Level 141 mmol/L (136-145)
--- NOTE | 2021-02-26 11:42 | CT_ITS ---
EXAM: CT HEAD WITHOUT INTRAVENOUS CONTRAST CLINICAL INDICATION: vertigo TECHNIQUE: Multiple axial images were obtained of the head without intravenous contrast. This CT exam was performed using one or more of the following dose reduction techniques: automated exposure control, adjustment of the mA and/or kV according to patient size, and/or use of iterative reconstruction technique. This report was created using [employer] report generation technology. COMPARISON: 06/24/2016 FINDINGS: BRAIN AND EXTRA-AXIAL SPACES: Central parenchymal volume loss. White matter changes that are nonspecific but most commonly associated with chronic small vessel ischemic disease. No intra- or extra-axial hemorrhage. No intracranial mass or mass effect. Posterior fossa structures are unremarkable. Ventricles are appropriate for age. No hydrocephalus. Basal cisterns are patent. BONES/JOINTS: Unremarkable. No discrete lytic or blastic abnormalities. SINUSES: Moderate chronic paranasal sinus disease. MASTOID AIR CELLS: Unremarkable. Clear. ORBITS: Visualized globes, extraocular muscles, optic nerves and retrobulbar fat appear unremarkable. CT/Brain/Head without Contrast IMPRESSION: No acute findings in the head/brain. Electronically Signed: Trent Smith MD ([place]) at 11:59 EDT , Service support ,
[2021-02-26 11:43] VITALS: BP 129/85; BP 133/67; BP 139/67; PULSE 59; PULSE 63; PULSE 74
[2021-02-26 13:04] VITALS: BP 137/69; PULSE 70
== END 2021-02-26 13:05 | disposition home or self-care (01) ==
PROVIDERS: Emergency Provider Emergency Medicine; PCP Family Medicine
DX: H81.399 Other peripheral vertigo, unspecified ear (principal); I48.0 Paroxysmal atrial fibrillation; I10 Essential (primary) hypertension; J44.9 Chronic obstructive pulmonary disease, unspecified; J45.50 Severe persistent asthma, uncomplicated; E78.5 Hyperlipidemia, unspecified; G30.9 Alzheimer's disease, unspecified; F02.80 Dementia in other diseases classified elsewhere, unspecified severity, without behavioral disturbance, psychotic disturbance, mood disturbance, and anxiety; Z79.899 Other long term (current) drug therapy; Z87.891 Personal history of nicotine dependence; Z79.82 Long term (current) use of aspirin; Z86.73 Personal history of transient ischemic attack (TIA), and cerebral infarction without residual deficits
CPT/HCPCS: 36415; 70450; 80048; 85025; 93005; 99285; A4216

== ENCOUNTER → 2021-09-20 | Outpatient (CLI) | payer MEDICARE, OTHER, MEDICAID, SELFPAY | END | disposition home or self-care (01) | LOC: RAD 09:56 | PROVIDERS: PCP Family Medicine; Visit Provider Family Medicine | DX: R13.10 Dysphagia, unspecified (principal) ==

== ENCOUNTER → 2021-11-01 | Outpatient (CLI) | payer MEDICARE, OTHER, MEDICAID, SELFPAY ==
--- NOTE | 2021-11-01 14:14 | SP.MBSS_ITS ---
Modified Barium Swallow - Patient Information Study Date: 11/01/21 Study Time: 13:00 Direct Billable Minutes: 120 Total Minutes procedure & reportin Diagnosis: Alzheimer's disease (G30.9), COPD (J44.1) Referring Physician: Kunal Figueroa Reason for Referral: Objectively assess swallow function, risk for aspiration, and determine recommendations for least restrictive diet textures and compensatory strategies to improve safety of swallow. Medical History: The patient is an 81-year-old male with PMH provided from his son, Edi. The p atient has Alzheimer's disease, COPD, past CVA (>5 years ago), atrial fibrillation controlled with medication, asthma, and emphysema. He receives palliative care currently. His son reports that the patient will stop during a meal and say, It's too hard to swallow. Associated problems include family concerns for dehydration, decreased appetite, and significant weight loss (~40 pounds from March 2021-September 2021). He has had decreased vocal intensity, as well. He has no history of PNA per pt's son. He eats most solid foods, but avoids foods that are small or break into small pieces, such as chips, popcorn, corn, and rice. Current Diet Ordered: Regular soft / Thin Dentition: WNL Mental Status: Impaired - Alzheimer's - able to follow cues for hard swallow Respiratory Status: Oxygenating on Room Air - Penetration-Aspiration Scale Penetration-Aspiration Scale: OBJECTIVE ASSESSMENT OF SWALLOW FUNCTION (QUANTITATIVE ? PER TRIAL): PENETRATION / ASPIRATION SCALE (ESCALANTE): 1 = does not enter airway 2 = enters airway/above vocal folds/ejected 3 = enters airway/above vocal folds/not ejected 4 = enters airway/contacts vocal folds/ejected 5 = enters airway/contacts vocal folds/not ejected 6 = enters airway/below vocal folds/ejected 7 = enters airway/below vocal folds/not ejected despite effort 8 = enters airway/below vocal folds/no effort VIDEOFLOROSCOPIC SCALE SCORE (ESCALANTE): Grade I = aspiration of material that has penetrated into the laryngeal vestibule, intact cough reflex Grade II = aspiration < 10 % of the bolus, intact cough reflex Grade III = aspiration of < 10 % of the bolus, reduced cough reflex or aspiration of > 10 % of the bolus, intact cough reflex Grade IV = aspiration of > 10 % of the bolus, reduced cough reflex - Penetration-Aspiration Scale Score Thin Liquid via teaspoon Result: 5= enters airways/contacts vocal folds/not ejected Thin Liquid via teaspoon Trial 2 Result: 8= enters airway/below vocal folds/no effort - Post prandial aspiration of previous trial observed Thin Liquid via small single sip from cup Result: 8= enters airway/below vocal folds/no effort [place] Thick Liquid via small single sip from cup Result: 8= enters airway/below vocal folds/no effort Honey Thick Liquid via small single sip from cup Result: 2= enter airway/above vocal folds/ejected - delayed cough observed, but laryngeal vestibule appeared clear of contrast Pudding via teaspoon Result: 1= does not enter airway 1/2 Cookie Result: 1= does not enter airway Thin Liquid via single sip from straw Comment: Unable to score as he was not able to create lip seal/suction to complete a sip via straw. Honey Thick Liquid via small single sip from cup Trial 2 Result: 2= enter airway/above vocal folds/ejected - trace post prandial aspiration of pharyngeal residues Thin Liquid via teaspoon Effortful swallow Result: 2= enter airway/above vocal folds/ejected Thin Liquid via teaspoon Effortful swallow Trial 2 Result: 3= enters airways/above vocal folds/not ejected Honey Thick Liquid via teaspoon Result: 1= does not enter airway Honey Thick Liquid via teaspoon Trial 2 Result: 8= enters airway/below vocal folds/no effort - Oral Phase Labial Seal: Escape beyond mid-chin Tongue Control During Bolus Hold: Posterior escape of greater than half of bolus Bolus Preparation/Mastication: Slow prolonged chewing/mashing with complete recollection Bolus Transport/Lingual Motion: Slowed tongue motion Oral Residue: Residue collection on oral structures - Pharyngeal Phase Initiation of Pharyngeal Swallow: Bolus head in pyriforms Soft Palate Elevation: Trace column of contrast/air between soft palate and pharyngeal wall Laryngeal Elevation: Partial superior movement thyroid cart/partial apprx aryt- epig petiole Anterior Hyoid Excursion: Partial anterior movement Epiglottic Movement: Partial inversion Laryngeal Vestibule Closure at Height of Swallow: Incomplete; narrow column of air/contrast in laryngeal vestibule Pharyngeal Stripping Wave: Present - complete Pharyngoesophageal Segment Opening: Parital distension and partial duration; parital obstruction of flow Tongue Base Retraction: Narrow column of contrast between tongue base & post. pharyngeal wall Pharyngeal Residue: Collection of residue within or on pharyngeal structures - Esophageal Phase Esophageal Clearance: Complete clearance - Treatment Strategies Effects of treatment strategies attemped:: Effortful swallow = Effective. - Diagnosis/Impression Diagnosis: Moderate-severe oropharyngeal phase dysphagia (R13.12) Impression: The oral phase is primarily marked by: -Frequent anterior loss of bolus beyond the chin with liquid consistencies. Drooling observed, as well. -Decreased bolus control posteriorly with loss of >1/2 of various liquid bolus trials to the pyriforms prior to swallow onset, including honey thick liquids. -Decreased mastication abilities characterized by prolonged and effortful mastication. -Mild-moderate oral residue after the swallow. The pharyngeal phase is primarily marked by: -Delayed swallow onset. -Decreased airway closure due to decreased anterior hyoid excursion and laryngeal elevation with resulting partial epiglottic inversion. -Mild pharyngeal residue after the swallow increasing risk for post prandial aspiration. -SILENT aspiration of certain thin, nectar, and honey thickened liquid trials - SEE PAS scores above for full details. He benefits from decreased bolus size to improve bolus control, as well as effortful swallow to improve airway closure during the swallow. -SILENT post prandial aspiration of pharyngeal residue after cookie trial and attempt at sip of thin liquid via straw. -All aspiration observed was Grade III = aspiration of < 10% of bolus with NO cough reflex. - Recommendations Diet: Thin Liquids - Soft and Bite Size Textures (IDDSI Level 6) Comment: Ian Free Water Protocol Compensatory Strategies: Small Bites, Small Sips, Liquid by Teaspoon Only - Encourage effortful/hard swallow with each sip, Slow Rate, Sitting upright, Assist with verbal cues to use recommended strategies Supervision: 1:1 Close Supervision Recommend Repeat Modified Barium Swallow: No - No repeat study warranted at this time. Need for Skilled Speech Therapy Services: Yes Comment: Will recommend the patient for home health dysphagia therapy to address deficits in oropharyngeal swallow function. Would consider the patient for oropharyngeal strengthening to improve lingual strength/coordination, anterior hyoid excursion, laryngeal elevation (CTAR, effortful swallow, lingual resistance exercises). According to his son, the patient is able to follow commands well with repetition and demonstration. Would also consider the falsetto exercise to promote vocal fold adduction as the patient has had increased hoarseness and decreased vocal intensity. The patient and family would benefit from thorough education regarding diet recommendations and recommended compensatory strategies. Will recommend continued education for the patient and family to implement FFWP to maintain adequate hydration and promote increased opportunities for swallowing throughout the day. Education Completed: 1. Described result of evaluation. - Thorough education provided verbally and via handouts regarding recommended diet textures, aspiration precautions, supervision needs, FFWP, and preparation/testing for soft and bite size textures. Pt's son verbalized good understanding., 4. Family/caregivers understand evaluation & agree w/ goals & tx plan., 7. Pt requires further education on strategies & risks., 8. Family/caregivers require further education on strategies & risks. - Status Active ST Patient: Active - Contact Information [facility] Speech Therapy:: Racquel Worrell M.A. [facility]-[employer] HEL[employer] Speech-Language Pathologist [facility] [address] [place] [address] [phone] 11/01/21 14:19
== END | disposition home or self-care (01) ==
LOC: RAD 13:05
PROVIDERS: PCP Family Medicine; Visit Provider Family Medicine
DX: R13.10 Dysphagia, unspecified (principal); G30.9 Alzheimer's disease, unspecified; F02.80 Dementia in other diseases classified elsewhere, unspecified severity, without behavioral disturbance, psychotic disturbance, mood disturbance, and anxiety; Z86.73 Personal history of transient ischemic attack (TIA), and cerebral infarction without residual deficits
CPT/HCPCS: 74230; 92611

== ENCOUNTER → 2022-05-19 | Outpatient (CLI) | payer MEDICARE, OTHER, MEDICAID, SELFPAY ==
[2022-05-19 13:51] LABS: Color, Urine Amber (Yellow); Glucose, Dipstick Normal (Normal); Ketone-Dipstick 5 mg/dl (Negative); Leukocyte Esterase-Dipstick 500 /ul (Negative); Nitrite-Dipstick Positive (Negative); Occult Blood-Urine 10 /ul (Negative); Protein-Dipstick 30 mg/dl (Negative); Urine Bilirubin Dipstick Negative (Negative); Urine Clarity Cloudy (Clear); Urine Urobilinogen 4 mg/dl (Normal)
== END | disposition home or self-care (01) ==
LOC: LABSPEC 12:09
PROVIDERS: PCP Family Medicine; Referring Provider Nurse Practitioner Acute Care; Visit Provider Nurse Practitioner Acute Care
DX: N39.0 Urinary tract infection, site not specified (principal)
CPT/HCPCS: 81002; 87086; 87088

== ENCOUNTER 2022-07-25 12:28 | Emergency (ER) | payer MEDICARE, OTHER, MEDICAID, SELFPAY ==
[2022-07-25 12:29] VITALS: RESP 16; TEMP 35.9; O2SAT 96; BMI 19.9
[2022-07-25 12:36] VITALS: BP 131/65; PULSE 62; RESP 20; O2SAT 95
[2022-07-25 13:07] VITALS: BP 127/70; PULSE 58; RESP 21; O2SAT 96
--- NOTE | 2022-07-25 13:07 | ED.RN ---
son states that the pt will speak at times but that he is very soft spoken.
--- NOTE | 2022-07-25 13:17 | EKG12_ITS ---
Test Reason : Blood Pressure : / mmHG Vent. Rate : 059 BPM Atrial Rate : 059 BPM P-R Int : 158 ms QRS Dur : 112 ms QT Int : 450 ms P-R-T Axes : 080 -06 043 degrees QTc Int : 445 ms Sinus bradycardia Otherwise normal ECG Confirmed by RAVI GOMEZ, ANITA ([id number]), editor in chief DONNA BERG ([id number]) on 07/26/2022 8:41:16 AM Referred By: [place] Confirmed By:ANITA RODRIGUES MD
--- NOTE | 2022-07-25 13:19 | EX.ED.DYSGE1 ---
HPI History of Present Illness Chief Complaint: General Illness Narrative Narrative: History and physical is limited secondary to patient condition. It is also limited secondary to dementia. Patient arrives via EMS. His son, who is his [employer]VISOR for medical care, and closest relative, along with being the cataloging assistant is at the bedside. He relates history that the patient has severe dementia and is not nonverbal, but whispers more. He is currently enrolled in home hospice for his Alzheimer's dementia. He recently had a respite stay in inpatient hospice at the beginning of the month from the first through the fifth. At that time, he was more ambulatory. They have noticed a decline in his ambulation status, but he still takes his medications and tries to eat. While his son was not at home, apparently the patient's aide came to visit and was taking care of him when the patient told him that he felt like he was having a heart attack. Instead of calling home hospice, the patient is a his called EMS and brought him to the emergency department. Patient has remote history of atrial fibrillation, and son states that he may have felt his heart racing and that is why he told his aide that he was having the feelings of a heart attack. [facility] Medical History alpha 1 Atrial fibrillation with rapid ventricular response (09/2018) Benign neoplasm of colon COPD with acute exacerbation Dementia Diverticulosis Essential hypertension Glaucoma History of fracture of right hip History of GI bleed History of stroke (02/02/16) Hyperlipidemia ANNEL (obstructive sleep apnea) Paroxysmal atrial fibrillation Premature ventricular complex Respiratory failure with hypoxia Severe persistent asthma Sleep apnea Stage 3 severe COPD by GOLD classification Thrush, oral Home Medications aspirin 81 mg chewable tablet 81 mg PO DAILY@0800 heart 07/28/18 [History Last Taken 07/28/18 08:00] atorvastatin 10 mg tablet 5 mg PO QHS cholesterol 07/28/18 [History Last Taken 07/27/18 19:00] travoprost 0.004 % eye drops 1 drp LEFT EYE QHS glaucoma 07/28/18 [History Last Taken 07/27/18] coenzyme Q10 10 mg capsule (Co Q-10) 10 mg PO DAILY 10/02/18 [History Last Taken Unknown] omega-3 fatty acids 1,000 mg capsule (Fish Oil Concentrate) 1,000 mg PO DAILY 10/02/18 [History Last Taken Unknown] lisinopril 10 mg tablet 10 mg PO BID 02/22/19 [History Last Taken Unknown] mepolizumab 100 mg subcutaneous solution 100 mg subcut QMONTH lungs #1 ea 03/21/19 [Rx Last Taken Unknown] spacer #1 ea 10/22/19 [Rx Last Taken Unknown] aflibercept 2 mg/0.05 mL intravitreal syringe (Eylea) 2 mg intravitreal ONCE 11/11/20 [History Last Taken Unknown] meclizine 25 mg tablet 25 mg PO Q8H PRN PRN Dizziness #20 tabs 02/26/21 [Rx Last Taken Unknown] albuterol sulfate 90 mcg/actuation aerosol inhaler (Ventolin HFA) 2 puff inhalation Q4H PRN shortness of breath or wheezing #18 grams 12/27/21 [Rx Last Taken Unknown] fluticasone propionate 220 mcg/actuation HFA aerosol inhaler 1 puff inhalation BID asthma #12 grams 12/27/21 [Rx Last Taken Unknown] ipratropium 0.5 mg-albuterol 3 mg (2.5 mg base)/3 mL nebulization soln 3 ml inhalation Q4H PRN PRN COUGH/WHEEZE #180 mL 12/27/21 [Rx Last Taken Unknown] diltiazem HCl 240 mg capsule,extended release 24 hr See Rx Instructions .Route .COMPLEX #90 caps 01/24/22 [Rx Last Taken Unknown] azithromycin 250 mg tablet 250 mg PO DAILY 4 days #4 tabs 07/25/22 [Rx Last Taken Unknown] Allergy/AdvReac Type Severity Reaction Status Date / Time Seasonal Allergies: Uncoded Allergy Intermediate Other Verified 12/27/21 10:40 latanoprost AdvReac Severe Burning in Verified 12/27/21 10:40 eyes tetracycline AdvReac Severe Hallucinations, Verified 12/27/21 10:40 mental status change levofloxacin [From Levaquin] AdvReac Intermediate Pain in Verified 12/27/21 10:40 joints bimatoprost [From Lumigan] AdvReac NEEDS Verified 12/27/21 10:40 FOLLOW-UP loratadine AdvReac epistaxis Verified 12/27/21 10:40 methylprednisolone AdvReac Other Verified 12/27/21 10:40 [From Solu-Medrol] montelukast AdvReac epistaxis Verified 12/27/21 10:40 Family History Brother Cancer lung Mother Heart disease Father Absolute glaucoma Surgical History Cataract extraction status H/O eye surgery (02/06/14) History of cataract removal with insertion of prosthetic lens (11/28/13) Hx of colonoscopy Status post lung surgery Social History Smoking Status: Former smoker how long ago did patient quit smokin years ago second hand exposure: Yes alcohol intake: never substance use type: does not use caffeine: Yes Type: coffee Number of servings: 2 ROS ROS ED ROS Narrative Limited secondary to dementia, essentially comes from son. Constitutional: No fever, no chills. HEENT: No sore throat. No neck pain. Chronic vision problems/blindness both eyes. No rhinorrhea. Cardiovascular: No chest pain. Positive palpitations. No pedal edema. Respiratory: No cough, no shortness of breath. Abdominal: No abdominal pain. No nausea. No vomiting. Genitourinary: No dysuria. No hematuria. Musculoskeletal: No myalgias. No arthralgias. Neurologic: No headaches. No dizziness. No lightheadedness. Skin: No rash. No change in color. Psychiatric: No depression. No anxiety. Review of Systems ROS Unobtainable: due to mental condition EXAM Physical Exam Narrative Exam Narrative: Afebrile. Vital signs noted. HEENT: Normocephalic. Atraumatic. PERRL, EOMI. Neck soft and supple. No point tenderness or step off. Cardiovascular: Regular rate and rhythm. No murmurs, rubs, or gallops appreciated. Respiratory: No tachypnea. Lungs clear to auscultation bilaterally. Occasional bibasilar rales. Gastrointestinal: Abdomen soft, nontender, with normoactive bowel sounds. No rebound or guarding. Neurological: Awake. Alert. Nonfocal, nonlateralizing. Skin: No rash. Normal color. No pallor. Musculoskeletal: No pedal edema. Full range of motion extremities. Const Vital Signs: 07/25/22 12:29 07/25/22 12:36 07/25/22 12:36 Temperature 96.6 F L Temperature Source Temporal Pulse Rate 62 Respiratory Rate 16 20 H Respiratory Pattern Normal Blood Pressure 131/65 H Blood Pressure Mean 87 Pulse Ox 96 95 Oxygen Delivery Method Nasal Cannula Nasal Cannula Oxygen Flow Rate (L/min) 4 07/25/22 13:07 Temperature Temperature Source Pulse Rate 58 L Respiratory Rate 21 H Respiratory Pattern Blood Pressure 127/70 H Blood Pressure Mean 89 Pulse Ox 96 Oxygen Delivery Method Nasal Cannula Oxygen Flow Rate (L/min) 3 MDM MDM MDM Narrative Medical decision making narrative: I had a lengthy discussion with the patient's son. They are not revoking hospice. However, they are making him comfortable for his Alzheimer's dementia. Additionally, patient's son does state he knows that he is on the decline, and states that the patient would like to peacefully at home. This is under the hospice/palliative care realm. However, he does state that he spoke with the hospice nurse and that since he is here he was told to be checked out so that they can pursue other comfort measures in the event that he was in atrial fibrillation or would have a pneumonia. Patient does wear oxygen at home at night so he has this available to him. I will obtain an EKG and a chest x-ray to make sure that he does not have a treatable condition such as pneumonia that could make him more comfortable. Regardless, his son would like to take him home to continue hospice. EKG was obtained and interpreted by myself, which demonstrates sinus bradycardia at 59 bpm without ectopy or acute ST changes, no evidence of atrial fibrillation or STEMI. Chest x-ray interpreted by myself is questionable for pneumonia. I reviewed the radiology report which shows that it is suggestive of an early infiltrate in the right middle lobe. At this point in time, he will be treated with an azithromycin Z-Pratik which she has been administered previously in the past. He can still swallow pills according to his son. He was given his first dose of 500 mg here in the emergency department and prescription written for the next 4 days of 250 mg daily. I will discuss patient with the [facility] hospice nurse to inform them that he is being discharged back to home hospice and they should continue comfort measures for his pneumonia and Alzheimer's disease. Disposition is discharged home in stable condition. Radiography Diagnostic Testing: Clinical Impression(s) from Imaging Studies Chest X-Ray 07/25/22 13:27 IMPRESSION: Findings suggestive of early infiltrate in the right middle lobe. Electronically Signed: Crispin Herring MD at 13:48 EDT , Discharge Plan Triage Chief Complaint: General Illness ED Provider: Magan Koehler Dx/Rx/DC Orders Clinical Impression: Palliative care status, Palpitations, Alzheimer disease, Pneumonia Instructions: What Is Palliative Care, ED Palpitations, ED Pneumonia (Adult) Prescriptions: New azithromycin 250 mg tablet 250 mg PO DAILY 4 Days Qty: 4 0RF Rx Instructions: start on day 2 of therapy No Action coenzyme Q10 [Co Q-10] 10 mg capsule 10 mg PO DAILY omega-3 fatty acids [Fish Oil Concentrate] 1,000 mg capsule 1,000 mg PO DAILY lisinopril 10 mg tablet 10 mg PO BID mepolizumab 100 mg recon soln 100 mg SC QMONTH Qty: 1 11RF Eylea 2 mg/0.05 mL syringe 2 mg intravitreal ONCE albuterol sulfate [Ventolin HFA] 90 mcg/actuation HFA aerosol inhaler 2 puff INHALATION Q4H PRN (Reason: shortness of breath or wheezing) Qty: 18 6RF ipratropium-albuterol 0.5 mg-3 mg(2.5 mg base)/3 mL solution for nebulization 3 ml inhalation Q4H PRN PRN (Reason: COUGH/WHEEZE) Qty: 180 6RF Rx Instructions: R06.02 SOB J44.9 COPD fluticasone propionate 220 mcg/actuation HFA aerosol inhaler 1 puff inhalation BID Qty: 12 3RF atorvastatin 10 MG tablet 5 mg PO QHS travoprost 5 ML drops 1 drp LEFT EYE QHS Rx Instructions: LEFT EYE ONLY aspirin 81 MG tablet,chewable 81 mg PO DAILY@0800 meclizine [meclizine] 25 MG tablet 25 mg PO Q8H PRN PRN (Reason: Dizziness) Qty: 20 0RF (DME) spacer See Rx Instructions .ROUTE .MEDSUPPLY Qty: 1 0RF Rx Instructions: As directed diltiazem HCl 240 mg capsule,extended release 24hr See Rx Instructions .ROUTE .COMPLEX Qty: 90 3RF Dose Instruction: TAKE 1 CAPSULE BY MOUTH EVERY DAY Rx Instructions: TAKE 1 CAPSULE BY MOUTH EVERY DAY Primary Care Provider: Kunal Figueroa Referrals: Kunal Figueroa MD [Primary Care Provider] - Activity Restrictions/Additional Instructions: Call home hospice as needed. Disposition Disposition: Home, Self Care
--- NOTE | 2022-07-25 13:27 | RAD_ITS ---
STUDY: X-RAY CHEST REASON FOR EXAM: Male, 81 years old. Shortness of breath and chest pain. TECHNIQUE: Single AP portable view of the chest. COMPARISON: Comparison is made with prior study of September 15, 2018. FINDINGS: EKG electrodes are seen. Findings suggestive of early infiltrate in the right middle lobe. There is no demonstrated pleural abnormality. Normal size heart. Normal mediastinum and antony. Normal visualized pulmonary arteries. There is atherosclerotic calcification of the aortic arch with tortuosity. There are diffuse degenerative changes of the visualized thoracic spine. Normal visualized ribs, clavicles, and shoulders. There is no demonstrated abnormality of the visualized soft tissue structures of the upper abdomen. RAD/Chest 1 View (Portable) IMPRESSION: Findings suggestive of early infiltrate in the right middle lobe. Electronically Signed: Crispin Herring MD at 13:48 EDT ,
[2022-07-25] MEDS: Azithromycin 250 MG Tablet 500 MG PO (14:24)
[2022-07-25 14:52] VITALS: BP 141/73; PULSE 59; RESP 18; O2SAT 97
== END 2022-07-25 15:02 | disposition home or self-care (01) ==
PROVIDERS: Emergency Provider Emergency Medicine; PCP Family Medicine; Visit Provider Emergency Medicine
DX: R00.2 Palpitations (principal); G30.9 Alzheimer's disease, unspecified; F02.C0 Dementia in other diseases classified elsewhere, severe, without behavioral disturbance, psychotic disturbance, mood disturbance, and anxiety; J18.9 Pneumonia, unspecified organism; G47.33 Obstructive sleep apnea (adult) (pediatric); Z86.73 Personal history of transient ischemic attack (TIA), and cerebral infarction without residual deficits; Z87.891 Personal history of nicotine dependence
CPT/HCPCS: 71045; 93005; 99284